=== PATIENT | female | born 1940 | race Caucasian/White ===

== ENCOUNTER 2020-10-19 16:25 | Inpatient (IN) | payer MEDICARE, BC ==
[2020-10-19] MEDS ORDERED: HYDROmorphone 1 MG/ML Syringe IVPUSH ONE ×2 (16:57→18:36)
[2020-10-19] MEDS ORDERED: Ondansetron 4 MG/2 ML SDV IVPUSH ONE (16:57)
[2020-10-19] MEDS ORDERED: HYDROmorphone 0.5 MG/0.5 ML Syringe IVPUSH ONE (17:20)
[2020-10-19] MEDS ORDERED: Ketamine 500 MG/5 ML MDV IV ONE (17:21)
--- NOTE | 2020-10-19 17:35 | EDM.PDOC ---
ED HPI GENERAL MEDICAL PROBLEM - General Chief Complaint: Lower Extremity Injury/Pain Stated Complaint: MEDICAL VIA [facility] Time Seen by Provider: 10/19/20 16:55 Source of Information: Reports: Patient, RN Notes Reviewed History Limitations: Reports: No Limitations - History of Present Illness INITIAL COMMENTS - FREE TEXT/NARRATIVE: 80-year-old female brought in by EMS services today for a fall at home, she was climbing a ladder fell off the ladder and landed on her left hip she did not hit her head no loss of consciousness denies any other injuries, hip is obviously deformed Left Hip Pain Score (Numeric/FACES): 8 - Related Data Allergies Allergy/AdvReac Type Severity Reaction Status Date / Time codeine Allergy Cannot Verified 01/19/16 13:20 Remember latex Allergy Cannot Verified 01/19/16 13:20 Remember Home Meds: Home Meds Doxazosin Mesylate 2 mg PO BID 01/19/16 [History] Hydroxychloroquine [Plaquenil] 200 mg PO BID 01/19/16 [History] Levothyroxine Sodium 88 mcg PO DAILY 01/19/16 [History] Multivitamin with Minerals [Multiple Vitamin] 1 tab PO DAILY 01/19/16 [History] Simvastatin 40 mg PO DAILY 01/19/16 [History] sulfaSALAzine [Sulfasalazine] 1,000 mg PO BID 01/19/16 [History] Aspirin 81 mg PO DAILY 10/19/20 [History] Chlorthalidone 25 mg PO DAILY 10/19/20 [History] Citalopram [Citalopram HBr] 10 mg PO DAILY 10/19/20 [History] amLODIPine [Norvasc] 5 mg PO DAILY 10/19/20 [History] carvediloL [Carvedilol] 25 mg PO BID 10/19/20 [History] lisinopriL [Lisinopril] 20 mg PO BID 10/19/20 [History] Past Medical History HEENT History: Reports: Impaired Vision Cardiovascular History: Reports: High Cholesterol, Hypertension Gastrointestinal History: Reports: Chronic Diarrhea Genitourinary History: Reports: UTI, Recurrent 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: Musculoskeletal History: Reports: Arthritis Endocrine/Metabolic History: Reports: Hypothyroidism - Infectious Disease History Infectious Disease History: Reports: Chicken Pox - Past Surgical History HEENT Surgical History: Reports: Tonsillectomy GI Surgical History: Reports: Colonoscopy, EGD Female Surgical History: Reports: Tubal Ligation Musculoskeletal Surgical History: Reports: Hip Replacement, Knee Replacement Other Musculoskeletal Surgeries/Procedures:: history of right knee replacement in October 2015; history of right hip replacement in 2011 Social & Family History - Family History Family Medical History: No Pertinent Family History - Tobacco Use Tobacco Use Status *Q: Never Tobacco User - Caffeine Use Caffeine Use: Reports: Coffee - Recreational Drug Use Recreational Drug Use: No Review of Systems - Review of Systems Review Of Systems: See Below Musculoskeletal: Reports: Joint Pain (Hip pain) ED EXAM, GENERAL - Physical Exam Exam: See Below Free Text/Narrative:: Examination left hip it is externally rotated and shortened pedal pulses +2 Exam Limited By: No Limitations General Appearance: Alert, Mild Distress Respiratory/Chest: No Respiratory Distress, Lungs Clear, Normal Breath Sounds, No Accessory Muscle Use, Chest Non-Tender Cardiovascular: Regular Rate, Rhythm, No Murmur Course - Vital Signs Last Recorded V/S: Last Vital Signs Temp 98 F 10/19/20 16:44 Pulse 81 10/19/20 16:44 Resp 16 10/19/20 16:44 BP 166/77 H 10/19/20 16:44 Pulse Ox 94 L 10/19/20 16:44 - Orders/Labs/Meds Orders: Active Orders 24 hr Category Date Time Status Hip Min 2V or 3V Lt [CR] Stat Exams 10/19/20 16:57 Ordered Meds: Medications Discontinued Medications Generic Name Dose Route Start Last Admin Trade Name Samiq PRN Reason Stop Dose Admin Hydromorphone HCl 1 mg 10/19/20 16:57 10/19/20 17:01 Hydromorphone 1 Mg/Ml Syringe IVPUSH 10/19/20 16:58 1 mg ONETIME ONE Administration Hydromorphone HCl 0.5 mg 10/19/20 17:20 Hydromorphone 0.5 Mg/0.5 Ml Syringe IVPUSH 10/19/20 17:21 ONETIME ONE Ketamine HCl 15 mg 10/19/20 17:21 10/19/20 17:25 Ketamine 500 Mg/5 Ml Mdv IV 10/19/20 17:22 15 mg ONETIME ONE Administration Ondansetron HCl 4 mg 10/19/20 16:57 10/19/20 17:00 Ondansetron 4 Mg/2 Ml Sdv IVPUSH 10/19/20 16:58 4 mg ONETIME ONE Administration Departure - Departure Time of Disposition: 17:35 Disposition: Admitted As Inpatient 68 Clinical Impression: Fracture of neck of femur, hip - Discharge Information Referrals: PCP,None [Primary Care Provider] - Sepsis Event Note (ED) - Evaluation Sepsis Screening Result: No Definite Risk - Focused Exam Vital Signs: Vital Signs Temp Pulse Resp BP Pulse Ox 10/19/20 16:44 98 F 81 16 166/77 H 94 L - My Orders Last 24 Hours: My Active Orders 10/19/20 16:57 Hip Min 2V or 3V Lt [CR] Stat - Assessment/Plan Last 24 Hours: My Active Orders 10/19/20 16:57 Hip Min 2V or 3V Lt [CR] Stat Plan: Assessment Acuity = acute Site and laterality = left hip fracture neck Etiology = secondary to fall Manifestations = none Location of injury = Home Lab values = x-ray describes fracture above Plan Call discussed case hospitalist on-call at 1730 kindly agreed to come evaluate the patient emergency department also discussed case with orthopedics on-call This note was dictated using [employer] voice recognition software please call with any questions on syntax or grammar.
--- NOTE | 2020-10-19 19:34 | PCM.HP.2 ---
H&P History of Present Illness - General Date of Service: 10/19/20 Admit Problem/Dx: Admission Diagnosis/Problem Admission Diagnosis/Problem Fracture of neck of femur, hip Source of Information: Patient, EMS, Provider, RN History Limitations: Reports: No Limitations - History of Present Illness Initial Comments - Free Text/Narative: chief complaint: left hip fracture 80-year-old female brought in by EMS services today for a fall at home, she was climbing a ladder fell off the ladder and landed on her left hip she did not hit her head no loss of consciousness denies any other injuries, hip is obviously deformed. ER evaluation - xragy shows a left fracture of neck of femur. Consult to Dr. Gupta- will do surgery in am Onset of Symptoms: Reports: Today Symptom Onset Date: 10/19/20 Symptom Onset Time: 14:00 Duration of Symptoms: Reports: Constant Location: Reports: Other (left buttock and left upper thigh) Quality: Reports: Sharp (rates pain at 8 out of 10) Severity: Severe Improves with: Reports: Immobilization Worsens with: Reports: Movement Context: Reports: Other (fall at home with fracture of left hip) Associated Symptoms: Reports: No Other Symptoms Left Hip Pain Score (Numeric/FACES): 8 - Related Data Allergies/Adverse Reactions: Allergies Allergy/AdvReac Type Severity Reaction Status Date / Time codeine Allergy Cannot Verified 01/19/16 13:20 Remember latex Allergy Cannot Verified 01/19/16 13:20 Remember Home Medications: Home Meds Doxazosin Mesylate 2 mg PO BID 01/19/16 [History] Hydroxychloroquine [Plaquenil] 200 mg PO BID 01/19/16 [History] Levothyroxine Sodium 88 mcg PO DAILY 01/19/16 [History] Multivitamin with Minerals [Multiple Vitamin] 1 tab PO DAILY 01/19/16 [History] Simvastatin 40 mg PO DAILY 01/19/16 [History] sulfaSALAzine [Sulfasalazine] 1,000 mg PO BID 01/19/16 [History] Aspirin 81 mg PO DAILY 10/19/20 [History] Chlorthalidone 25 mg PO DAILY 10/19/20 [History] Citalopram [Citalopram HBr] 10 mg PO DAILY 10/19/20 [History] amLODIPine [Norvasc] 5 mg PO DAILY 10/19/20 [History] carvediloL [Carvedilol] 25 mg PO BID 10/19/20 [History] lisinopriL [Lisinopril] 20 mg PO BID 10/19/20 [History] Past Medical History HEENT History: Reports: Impaired Vision Cardiovascular History: Reports: High Cholesterol, Hypertension Gastrointestinal History: Reports: Chronic Diarrhea Genitourinary History: Reports: UTI, Recurrent 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: Musculoskeletal History: Reports: Arthritis Endocrine/Metabolic History: Reports: Hypothyroidism - Infectious Disease History Infectious Disease History: Reports: Chicken Pox - Past Surgical History HEENT Surgical History: Reports: Tonsillectomy GI Surgical History: Reports: Colonoscopy, EGD Female Surgical History: Reports: Tubal Ligation Musculoskeletal Surgical History: Reports: Hip Replacement, Knee Replacement Other Musculoskeletal Surgeries/Procedures:: history of right knee replacement in October 2015; history of right hip replacement in 2011 Social & Family History - Family History Family Medical History: No Pertinent Family History - Tobacco Use Tobacco Use Status *Q: Never Tobacco User - Caffeine Use Caffeine Use: Reports: Coffee - Alcohol Use Alcohol Use History: Yes Days Per Week of Alcohol Use: 7 Days Per Week of Alcohol Use Comment: Mrs. Winter reports drinks several drinks every single day for the past 5 years after the of her . She starts with Bloody Allison (vodka) then ends the night with several glasses of wine. Alcohol Use in Last Twelve Months: Yes Alcohol Use Frequency: Daily - Recreational Drug Use Recreational Drug Use: No - Living Situation & Occupation Living situation: Reports: , Alone Occupation: Other (lives alone in her own home and 6 months in [place] in her [facility]. 5 years ago. Has One Daughter Sonia and One Son.) H&P Review of Systems - Review of Systems: Review Of Systems: See Below General: Reports: Other (left hip and leg pain) HEENT: Reports: Glasses, Other (full dentures) Pulmonary: Reports: No Symptoms Cardiovascular: Reports: No Symptoms Gastrointestinal: Reports: No Symptoms Genitourinary: Reports: No Symptoms Musculoskeletal: Reports: Shoulder Pain (left shoulder- chronic), Leg Pain (left hip and leg pain from fracture), Joint Pain (left rotator cuff injury this winter- had appointment with Dr. Gupta for joint injection this Monday), Other (left hand with bruising from fall today) Skin: Reports: Bruising (left buttock and left hand), Erythema Psychiatric: Reports: No Symptoms Neurological: Reports: No Symptoms Hematologic/Lymphatic: Reports: No Symptoms Exam - Exam Exam: See Below - Vital Signs Vital Signs: Last Vital Signs Temp 98 F 10/19/20 16:44 Pulse 83 10/19/20 19:12 Resp 16 10/19/20 16:44 BP 112/54 L 10/19/20 19:12 Pulse Ox 93 L 10/19/20 19:12 Weight: 140 lb - Exam Quality Assessment: Urinary Catheter General: Alert, Oriented, 4 HEENT: PERRLA, Hearing Intact, Mucosa Moist & [place], Nares Patent, Normal Nasal Septum, Posterior Pharynx Clear, Conjunctiva Clear, EOMI, EACs Clear, TMs Clear Neck: Supple, Trachea Midline, 2 Lungs: Clear to Auscultation, Normal Respiratory Effort Cardiovascular: Regular Rate, Regular Rhythm, Normal S1, Normal S2 GI/Abdominal Exam: Normal Bowel Sounds, Soft, Non-Tender, No Organomegaly, No Distention, No Abnormal Bruit, No Mass, Pelvis Stable (Female) Exam: Deferred Rectal (Female) Exam: Deferred Extremities: Arm Pain (left hand with palmar bruising), Other (left buttock, left hip and upper leg pain, bruising, edema from fracture today) Peripheral Pulses: 2+: Radial (L), Radial (R), Dorsalis Pedis (L), Dorsalis Pedis (R) Skin: Warm, Dry, Intact, Ecchymosis (left buttock, hip and left hand), Other (well tanned skin) Neuro Extensive - Mental Status: Alert, Oriented x3, Normal Mood/Affect, Normal Cognition, Memory Intact Psychiatric: Alert, Normal Affect, Normal Mood - Patient Data Lab Results Last 24 hrs: Laboratory Results - last 24 hr 10/19/20 10/19/20 Range/Units 17:50 17:50 WBC 9.7 (4.5-11.0) K/uL RBC 4.00 (3.30-5.50) M/uL Hgb 12.8 (12.0-15.0) g/dL Hct 37.9 (36.0-48.0) % MCV 95 (80-98) fL MCH 32 H (27-31) pg MCHC 34 (32-36) % Plt Count 244 (150-400) K/uL Sodium 131 L (140-148) mmol/L Potassium 3.4 L (3.6-5.2) mmol/L Chloride 93 L (100-108) mmol/L Carbon Dioxide 26 (21-32) mmol/L Anion Gap 15.4 H (5.0-14.0) mmol/L BUN 13 (7-18) mg/dL Creatinine 0.7 (0.6-1.0) mg/dL Est Cr Clr Drug Dosing 54.79 mL/min Estimated GFR (MDRD) > 60 (>60) Glucose 103 (74-106) mg/dL Calcium 9.0 (8.5-10.1) mg/dL Result Diagrams: 10/19/20 17:50 10/19/20 17:50 Sepsis Event Note - Evaluation Sepsis Screening Result: No Definite Risk - Focused Exam Vital Signs: Vital Signs Temp Pulse Resp BP Pulse Ox 10/19/20 19:12 83 112/54 L 93 L 10/19/20 17:39 85 184/79 H 96 10/19/20 16:44 98 F 81 16 166/77 H 94 L - Problem List (1) Fracture of neck of femur, hip SNOMED Code(s): 4873490 ICD Code: S72.009A - FRACTURE OF UNSP PART OF NECK OF UNSP FEMUR, INIT Status: Acute Priority: High Current Visit: Yes (2) Alcohol use disorder, severe, dependence SNOMED Code(s): 127671891 ICD Code: F10.20 - ALCOHOL DEPENDENCE, UNCOMPLICATED Status: Acute Priority: High Current Visit: Yes (3) Hypothyroidism SNOMED Code(s): 78471407 ICD Code: E03.9 - HYPOTHYROIDISM, UNSPECIFIED Status: Acute Priority: Low Current Visit: Yes Qualifiers: Hypothyroidism type: unspecified Qualified Code(s): E03.9 - Hypothyroidism, unspecified (4) Hypertension SNOMED Code(s): 77184883 ICD Code: I10 - ESSENTIAL (PRIMARY) HYPERTENSION Status: Acute Priority: High Current Visit: Yes Qualifiers: Hypertension type: unspecified Qualified Code(s): I10 - Essential (primary) hypertension (5) Chronic diarrhea SNOMED Code(s): 418918880 ICD Code: K52.9 - NONINFECTIVE GASTROENTERITIS AND COLITIS, UNSPECIFIED Status: Acute Current Visit: Yes Problem List Initiated/Reviewed/Updated: Yes Orders Last 24hrs: Active Orders 24 hr Category Date Time Status Patient Status Manage Transfer [TRANSFER] Routine ADT 10/19/20 19:18 Active Insert García Catheter [Insert Urinary Catheter] [OM.PC] Care 10/19/20 18:00 Ordered Q24H Urinary Catheter Assessment [RC] ASDIRECTED Care 10/19/20 17:50 Active Hip Min 2V or 3V Lt [CR] Stat Exams 10/19/20 16:57 Taken COVID-19/FLU A+B/RSV [MOLEC] Routine Lab 10/19/20 19:04 Received Resuscitation Status Routine Resus Stat 10/19/20 19:20 Ordered Assessment/Plan Comment:: ASSESSMENT AND PLAN LEFT HIP FRACTURE- Mrs. Winter had a fall at home and fractured her left hip. Consult to Dr. Gupta- surgery in am. -N.P.O. after midnight -IV fluids for hydration -Pain and nausea medication as needed -Dr. uGpta consult -SCUDs -am labs - CBC, BMP ALCOHOL USE DISORDER- Mrs. Winter reports drinks several drinks every day for the past five years since her . Starts with [employer] (vodka) then has several glasses of wine. denies ever having alcohol withdrawal. discussed will be monitored for any withdrawal. -[facility] HYPERTENSION -telemetry -Continue outpatient medical therapy HYPOTHYROIDISM -continue outpatient medical therapy -Synthyroid 88 mcg daily CHRONIC DIARRHEA -continue outpatient medical therapy -Sulfasalazine 1000 mg bid MAINTENANCE ISSUES -DVT prophylaxis; as above -GI prophylaxis - IV Protonic 40 mg daily -García catheter; will be placed because of severe pain with movement -Nutrition; regular diet, n.p.o. after midnight -Nicotine dependence; not required - quit smoking 22 years ago. -consult to PT -consult to OT CODE STATUS-FULL CODE ADMISSION STATUS-patient will be admitted to inpatient status, expect at least a 2 night hospital stay for evaluation and management of problems as outlined above. At the time of this admission I do not reasonably expected evaluation and management of this problem will require more than a 96 hour hospital stay. DISPOSITION-anticipate discharge to home after the hospital stay. PRIMARY CARE PROVIDER-Dr. Kin Campos, [facility], [place], [place]. SURGERY SERVICE- Dr. Gupta, Orthopedic Surgeon HOSPITALIST - Dr. Dumont - Mortality Measure Prognosis:: Good
[2020-10-19] MEDS ORDERED: Docusate Sodium 100 MG Cap PO PRN (19:38)
[2020-10-19] MEDS ORDERED: Ondansetron 4 MG Tab.DIS PO PRN (19:38)
[2020-10-19 19:46] LABS: CORONAVIRUS COVID-19 NAA NEGATIVE (NEGATIVE)
[2020-10-19] MEDS: Sodium Chloride 0.9% 1,000 ML IV SCH (20:12)
[2020-10-19] MEDS ORDERED: Lisinopril 10 MG Tab ONE (21:13)
[2020-10-19] MEDS: Doxazosin 4 MG Tab PO SCH (21:22)
[2020-10-19] MEDS: Carvedilol 12.5 MG Tab PO SCH (21:23)
[2020-10-19] MEDS: Lisinopril 20 MG Tab PO SCH (21:24)
[2020-10-19] MEDS: Hydroxychloroquine 200 MG Tab PO SCH (21:24)
[2020-10-19] MEDS: sulfaSALAzine 500 MG Tab PO SCH (21:25)
[2020-10-19] MEDS: Pantoprazole 40 MG Vial IV SCH (21:25)
[2020-10-19] MEDS: Citalopram 10 MG Tab PO SCH (22:01)
[2020-10-20] MEDS: Morphine 2 MG/ML SYRINGE IVPUSH PRN ×6 (03:25→18:51)
[2020-10-20] MEDS: Sodium Chloride 0.9% 1,000 ML IV SCH ×2 (03:25→18:46)
[2020-10-20] MEDS: oxyCODONE 5 MG Tab PO PRN ×2 (05:09→08:57)
[2020-10-20] MEDS: Acetaminophen 325 MG Tab PO PRN (05:09)
[2020-10-20] MEDS: Hydroxychloroquine 200 MG Tab PO SCH ×2 (08:21→20:43)
[2020-10-20] MEDS: Chlorthalidone 25 MG Tab PO SCH (08:21)
[2020-10-20] MEDS: Carvedilol 12.5 MG Tab PO SCH ×2 (08:22→20:42)
[2020-10-20] MEDS: amLODIPine 5 MG Tab PO SCH (08:23)
[2020-10-20] MEDS: sulfaSALAzine 500 MG Tab PO SCH ×2 (08:24→20:42)
[2020-10-20] MEDS: atorvaSTATin 20 MG Tab PO SCH (08:26)
[2020-10-20] MEDS: Doxazosin 4 MG Tab PO SCH ×2 (08:27→20:43)
[2020-10-20] MEDS: Multivitamins with Iron/Calcium/Folic Acid/Minerals Tab PO SCH (08:28)
[2020-10-20] MEDS: Lisinopril 20 MG Tab PO SCH ×2 (08:28→20:42)
[2020-10-20] MEDS: Levothyroxine 88 MCG Tab PO SCH (08:32)
[2020-10-20] MEDS ORDERED: Povidone-Iodine 10% Soln 118.25 ML Bottle ONE (08:33)
[2020-10-20] MEDS ORDERED: Citalopram 10 MG Tab PO SCH (09:00)
--- NOTE | 2020-10-20 09:12 | CR ---
Hip Min 2V or 3V Lt CLINICAL HISTORY: Fall, pain FINDINGS: Patient has a displaced fracture of the left femoral neck. There is abduction of the proximal aspect. IMPRESSION: Displaced fracture subcapital portion of the left femur
[2020-10-20] MEDS: Potassium Chloride 20 MEQ, Lidocaine 1% 2 ML in Sodium Chloride 0.9% 100 ML IV SCH ×2 (10:04→12:15)
[2020-10-20] MEDS ORDERED: Propofol 200 MG/20 ML SDV ONE (10:19)
[2020-10-20] MEDS ORDERED: Midazolam 1 MG/ML 2 ML SDV ONE (10:19)
[2020-10-20] MEDS ORDERED: fentaNYL 100 MCG/2 ML SDV ONE (10:19)
[2020-10-20] MEDS ORDERED: Sugammadex Sodium 200 MG/2 ML VIAL ONE (10:21)
--- NOTE | 2020-10-20 10:38 | PCM.PN ---
- General Info Date of Service: 10/20/20 Subjective Update: Ms. Winter is a 80-year-old woman who fell yesterday and experienced a hip fracture. She was admitted through the emergency department last night and has been receiving pain medication as needed. She has been seen and evaluated this morning by Dr. Gupta with plan for surgical repair of the hip fracture later today. - Review of Systems Pulmonary: Reports: No Symptoms Cardiovascular: Reports: No Symptoms Gastrointestinal: Reports: No Symptoms Musculoskeletal: Reports: Joint Pain - Patient Data Vitals - Most Recent: Last Vital Signs Temp 98.4 F 10/20/20 08:00 Pulse 67 10/20/20 08:22 Resp 13 10/20/20 04:00 BP 104/38 L 10/20/20 08:28 Pulse Ox 95 10/20/20 04:00 Weight - Most Recent: 160 lb I&O - Last 24 Hours: Intake & Output 10/19/20 10/20/20 10/20/20 22:59 06:59 14:59 Intake Total 1767 Output Total 950 Balance P 817 Lab Results Last 24 Hours: Laboratory Results - last 24 hr 10/19/20 10/19/20 10/19/20 Range/Units 17:50 17:50 19:04 WBC 9.7 (4.5-11.0) K/uL RBC 4.00 (3.30-5.50) M/uL Hgb 12.8 (12.0-15.0) g/dL Hct 37.9 (36.0-48.0) % MCV 95 (80-98) fL MCH 32 H (27-31) pg MCHC 34 (32-36) % Plt Count 244 (150-400) K/uL Neut % (Auto) (36-66) % Lymph % (Auto) (24-44) % [place] % (Auto) (2-6) % Eos % (Auto) (2-4) % Baso % (Auto) (0-1) % Sodium 131 L (140-148) mmol/L Potassium 3.4 L (3.6-5.2) mmol/L Chloride 93 L (100-108) mmol/L Carbon Dioxide 26 (21-32) mmol/L Anion Gap 15.4 H (5.0-14.0) mmol/L BUN 13 (7-18) mg/dL Creatinine 0.7 (0.6-1.0) mg/dL Est Cr Clr Drug Dosing 54.79 mL/min Estimated GFR (MDRD) > 60 (>60) Glucose 103 (74-106) mg/dL Calcium 9.0 (8.5-10.1) mg/dL Influenza Type A RNA Negative (NEGATIVE) RSV RNA (INAAT) Negative (NEGATIVE) Influenza Type B RNA Negative (NEGATIVE) SARS-CoV-2 RNA (MANPREET) Negative (NEGATIVE) 10/20/20 10/20/20 Range/Units 05:25 05:25 WBC 8.7 (4.5-11.0) K/uL RBC 3.39 (3.30-5.50) M/uL Hgb 11.3 L (12.0-15.0) g/dL Hct 32.4 L (36.0-48.0) % MCV 96 (80-98) fL MCH 33 H (27-31) pg MCHC 35 (32-36) % Plt Count 207 (150-400) K/uL Neut % (Auto) 78.2 H (36-66) % Lymph % (Auto) 7.9 L (24-44) % [place] % (Auto) 12.9 H (2-6) % Eos % (Auto) 0.9 L (2-4) % Baso % (Auto) 0.1 (0-1) % Sodium 133 L (140-148) mmol/L Potassium 3.5 L (3.6-5.2) mmol/L Chloride 96 L (100-108) mmol/L Carbon Dioxide 28 (21-32) mmol/L Anion Gap 12.5 (5.0-14.0) mmol/L BUN 12 (7-18) mg/dL Creatinine 0.7 (0.6-1.0) mg/dL Est Cr Clr Drug Dosing 54.79 mL/min Estimated GFR (MDRD) > 60 (>60) Glucose 96 (74-106) mg/dL Calcium 7.9 L (8.5-10.1) mg/dL Influenza Type A RNA (NEGATIVE) RSV RNA (INAAT) (NEGATIVE) Influenza Type B RNA (NEGATIVE) SARS-CoV-2 RNA (MANPREET) (NEGATIVE) Med Orders - Current: Current Medications Acetaminophen (Acetaminophen 325 Mg Tab) 650 mg PO Q4H PRN PRN Reason: Pain (Mild 1-3)/fever Last Admin: 10/20/20 05:09 Dose: 650 mg Documented by: Albuterol (Albuterol 0.083% 2.5 Mg/3 Ml Neb Soln) 2.5 mg NEB Q4H PRN PRN Reason: Shortness Of Breath/wheezing Amlodipine Besylate (Amlodipine 5 Mg Tab) 5 mg PO DAILY [facility] Last Admin: 10/20/20 08:23 Dose: 5 mg Documented by: Atorvastatin Calcium (Atorvastatin 20 Mg Tab) 20 mg PO DAILY [facility] Last Admin: 10/20/20 08:26 Dose: 20 mg Documented by: Carvedilol (Carvedilol 12.5 Mg Tab) 25 mg PO BID [facility] Last Admin: 10/20/20 08:22 Dose: 25 mg Documented by: Chlorthalidone (Chlorthalidone 25 Mg Tab) 25 mg PO DAILY [facility] Last Admin: 10/20/20 08:21 Dose: 25 mg Documented by: Citalopram Hydrobromide (Citalopram 10 Mg Tab) 10 mg PO BEDTIME [facility] Last Admin: 10/19/20 22:01 Dose: 10 mg Documented by: Docusate Sodium (Docusate Sodium 100 Mg Cap) 100 mg PO BID PRN PRN Reason: Constipation Last Admin: 10/19/20 21:25 Dose: 100 mg Documented by: Doxazosin Mesylate (Doxazosin 4 Mg Tab) 2 mg PO BID [facility] Last Admin: 10/20/20 08:27 Dose: 2 mg Documented by: Hydroxychloroquine Sulfate (Hydroxychloroquine 200 Mg Tab) 200 mg PO BID [facility] Last Admin: 10/20/20 08:21 Dose: 200 mg Documented by: Sodium Chloride (Normal Saline) 1,000 mls @ 125 mls/hr IV ASDIRECTED [facility] Last Admin: 10/20/20 03:25 Dose: 125 mls/hr Documented by: Cefazolin Sodium/Dextrose 1 gm (/ Premix) 50 mls @ 100 mls/hr IV ONETIME ONE Stop: 10/20/20 16:29 Potassium Chloride 20 meq/Lidocaine HCl 2 ml/ Sodium Chloride 112 mls @ 56 mls/hr IV Q2H [facility]AC[facility] Stop: 10/20/20 13:59 Last Admin: 10/20/20 10:04 Dose: 56 mls/hr Documented by: Levothyroxine Sodium (Levothyroxine 88 Mcg Tab) 88 mcg PO DAILY@0730 [facility] Last Admin: 10/20/20 08:32 Dose: 88 mcg Documented by: Lisinopril (Lisinopril 20 Mg Tab) 20 mg PO BID [facility] Last Admin: 10/20/20 08:28 Dose: 20 mg Documented by: Morphine Sulfate (Morphine 2 Mg/Ml Syringe) 2 mg IVPUSH Q2H PRN PRN Reason: Pain (severe 7-10) Last Admin: 10/20/20 07:53 Dose: 2 mg Documented by: Multivitamins/Minerals (Multivitamins With Iron/Calcium/Folic Acid/Minerals Tab) 1 tab PO DAILY [facility] Last Admin: 10/20/20 08:28 Dose: 1 tab Documented by: Ondansetron HCl (Ondansetron 4 Mg Tab.Dis) 4 mg PO Q6H PRN PRN Reason: Nausea able to take PO Oxycodone HCl (Oxycodone 5 Mg Tab) 10 mg PO Q4H PRN PRN Reason: Pain (moderate 4-6) Last Admin: 10/20/20 08:57 Dose: 10 mg Documented by: Pantoprazole Sodium (Pantoprazole 40 Mg Vial) 40 mg IV BEDTIME [facility] Last Admin: 10/19/20 21:25 Dose: 40 mg Documented by: Sulfasalazine (Sulfasalazine 500 Mg Tab) 1,000 mg PO BID [facility] Last Admin: 10/20/20 08:24 Dose: 1,000 mg Documented by: Discontinued Medications Citalopram Hydrobromide (Citalopram 10 Mg Tab) 10 mg PO DAILY [facility] Fentanyl (Fentanyl 100 Mcg/2 Ml Sdv) Confirm Administered Dose 100 mcg .ROUTE .STK-MED ONE Stop: 10/20/20 10:20 Hydromorphone HCl (Hydromorphone 1 Mg/Ml Syringe) 1 mg IVPUSH ONETIME ONE Stop: 10/19/20 16:58 Last Admin: 10/19/20 17:01 Dose: 1 mg Documented by: Hydromorphone HCl (Hydromorphone 0.5 Mg/0.5 Ml Syringe) 0.5 mg IVPUSH ONETIME ONE Stop: 10/19/20 17:21 Last Admin: 10/19/20 20:59 Dose: Not Given Documented by: Hydromorphone HCl (Hydromorphone 1 Mg/Ml Syringe) 1 mg IVPUSH ONETIME ONE Stop: 10/19/20 18:37 Last Admin: 10/19/20 18:39 Dose: 1 mg Documented by: Ketamine HCl (Ketamine 500 Mg/5 Ml Mdv) 15 mg IV ONETIME ONE Stop: 10/19/20 17:22 Last Admin: 10/19/20 17:25 Dose: 15 mg Documented by: Lisinopril (Lisinopril 10 Mg Tab) Confirm Administered Dose 20 mg .ROUTE .STK- MED ONE Stop: 10/19/20 21:14 Last Admin: 10/19/20 21:27 Dose: Not Given Documented by: Midazolam HCl (Midazolam 1 Mg/Ml 2 Ml Sdv) Confirm Administered Dose 2 mg .ROUTE .STK-MED ONE Stop: 10/20/20 10:20 Ondansetron HCl (Ondansetron 4 Mg/2 Ml Sdv) 4 mg IVPUSH ONETIME ONE Stop: 10/19/20 16:58 Last Admin: 10/19/20 17:00 Dose: 4 mg Documented by: Povidone Iodine (Povidone-Iodine 10% Soln 118.25 Ml Bottle) Confirm Administered Dose 1 ml .ROUTE .STK-MED ONE Stop: 10/20/20 08:34 Propofol (Propofol 200 Mg/20 Ml Sdv) Confirm Administered Dose 200 mg .ROUTE .STK-MED ONE Stop: 10/20/20 10:20 Sugammadex Sodium (Sugammadex Sodium 200 Mg/2 Ml Vial) Confirm Administered Dose 200 mg .ROUTE .STK-MED ONE Stop: 10/20/20 10:22 - Exam General: Alert, Oriented, Cooperative, Moderate Distress Lungs: Clear to Auscultation, Normal Respiratory Effort Cardiovascular: Regular Rate, Regular Rhythm, No Murmurs GI/Abdominal Exam: Soft, Non-Tender, No Organomegaly, No Distention Extremities: No Pedal Edema - Patient Data Lab Results Last 24 hrs: Laboratory Results - last 24 hr 10/19/20 10/19/20 10/19/20 Range/Units 17:50 17:50 19:04 WBC 9.7 (4.5-11.0) K/uL RBC 4.00 (3.30-5.50) M/uL Hgb 12.8 (12.0-15.0) g/dL Hct 37.9 (36.0-48.0) % MCV 95 (80-98) fL MCH 32 H (27-31) pg MCHC 34 (32-36) % Plt Count 244 (150-400) K/uL Neut % (Auto) (36-66) % Lymph % (Auto) (24-44) % [place] % (Auto) (2-6) % Eos % (Auto) (2-4) % Baso % (Auto) (0-1) % Sodium 131 L (140-148) mmol/L Potassium 3.4 L (3.6-5.2) mmol/L Chloride 93 L (100-108) mmol/L Carbon Dioxide 26 (21-32) mmol/L Anion Gap 15.4 H (5.0-14.0) mmol/L BUN 13 (7-18) mg/dL Creatinine 0.7 (0.6-1.0) mg/dL Est Cr Clr Drug Dosing 54.79 mL/min Estimated GFR (MDRD) > 60 (>60) Glucose 103 (74-106) mg/dL Calcium 9.0 (8.5-10.1) mg/dL Influenza Type A RNA Negative (NEGATIVE) RSV RNA (INAAT) Negative (NEGATIVE) Influenza Type B RNA Negative (NEGATIVE) SARS-CoV-2 RNA (MANPREET) Negative (NEGATIVE) 10/20/20 10/20/20 Range/Units 05:25 05:25 WBC 8.7 (4.5-11.0) K/uL RBC 3.39 (3.30-5.50) M/uL Hgb 11.3 L (12.0-15.0) g/dL Hct 32.4 L (36.0-48.0) % MCV 96 (80-98) fL MCH 33 H (27-31) pg MCHC 35 (32-36) % Plt Count 207 (150-400) K/uL Neut % (Auto) 78.2 H (36-66) % Lymph % (Auto) 7.9 L (24-44) % [place] % (Auto) 12.9 H (2-6) % Eos % (Auto) 0.9 L (2-4) % Baso % (Auto) 0.1 (0-1) % Sodium 133 L (140-148) mmol/L Potassium 3.5 L (3.6-5.2) mmol/L Chloride 96 L (100-108) mmol/L Carbon Dioxide 28 (21-32) mmol/L Anion Gap 12.5 (5.0-14.0) mmol/L BUN 12 (7-18) mg/dL Creatinine 0.7 (0.6-1.0) mg/dL Est Cr Clr Drug Dosing 54.79 mL/min Estimated GFR (MDRD) > 60 (>60) Glucose 96 (74-106) mg/dL Calcium 7.9 L (8.5-10.1) mg/dL Influenza Type A RNA (NEGATIVE) RSV RNA (INAAT) (NEGATIVE) Influenza Type B RNA (NEGATIVE) SARS-CoV-2 RNA (MANPREET) (NEGATIVE) Result Diagrams: 10/20/20 05:25 10/20/20 05:25 Sepsis Event Note - Evaluation Sepsis Screening Result: No Definite Risk - Focused Exam Vital Signs: Vital Signs Temp Pulse Pulse Resp BP BP Pulse Ox 10/20/20 08:28 104/38 L 10/20/20 08:27 104/38 L 10/20/20 08:23 104/38 L 10/20/20 08:22 67 104/38 L 10/20/20 08:00 98.4 F 80 104/38 L 10/20/20 04:00 98.2 F 13 132/59 L 95 10/20/20 00:00 98.0 F 13 131/63 98 - Problem List Review Problem List Initiated/Reviewed/Updated: Yes - My Orders Last 24 Hours: My Active Orders 10/20/20 10:00 Potassium Chloride 20 meq Lidocaine 1% [Xylocaine 1%] 2 ml Sodium Chloride 0.9% [Normal Saline] 100 ml IV Q2H 10/21/20 05:00 BASIC METABOLIC PANEL,BMP [CHEM] Timed CBC WITH AUTO DIFF [HEME] Timed - Plan Plan:: ASSESSMENT AND PLAN LEFT HIP FRACTURE- Mrs. Winter had a fall at home and fractured her left hip. -N.P.O. -IV fluids for hydration -Pain and nausea medication as needed -Dr. Gupta consult -SCUDs -am labs - CBC, BMP ALCOHOL USE DISORDER- Mrs. Winter reports drinks several drinks every day for the past five years since her . Starts with [employer] (vodka) then has several glasses of wine. denies ever having alcohol withdrawal. discussed will be monitored for any withdrawal. -CIWAA Protocol HYPERTENSION -telemetry -Continue outpatient medical therapy HYPOTHYROIDISM -continue outpatient medical therapy -Synthyroid 88 mcg daily CHRONIC DIARRHEA -continue outpatient medical therapy -Sulfasalazine 1000 mg bid MAINTENANCE ISSUES -DVT prophylaxis; as above -GI prophylaxis - IV Protonic 40 mg daily -García catheter; will be placed because of severe pain with movement -Nutrition; regular diet, n.p.o. after midnight -Nicotine dependence; not required - quit smoking 22 years ago. -consult to PT -consult to OT CODE STATUS-FULL CODE ADMISSION STATUS-patient will be admitted to inpatient status, expect at least a 2 night hospital stay for evaluation and management of problems as outlined above. At the time of this admission I do not reasonably expected evaluation and management of this problem will require more than a 96 hour hospital stay. DISPOSITION-anticipate discharge to [facility] PRIMARY CARE PROVIDER-Dr. Kin Campos, [facility], [place], [place]. SURGERY SERVICE- Dr. Gupta, Orthopedic Surgeon HOSPITALIST - Dr. Dumont
--- NOTE | 2020-10-20 12:59 | PCM.CONS ---
H&P History of Present Illness - General Date of Service: 10/20/20 Admit Problem/Dx: Admission Diagnosis/Problem Admission Diagnosis/Problem Fracture of neck of femur, hip Source of Information: Patient, Old Records, Provider History Limitations: Reports: No Limitations - History of Present Illness Initial Comments - Free Text/Narative: 80 year old female admitted after a fall from a ladder with left hip pain. evaluation in the ED reveals a left femoral neck fracture. No other new injuries. Had been having shoulder pain prior to the fall. Onset of Symptoms: Reports: Sudden Location: Reports: Lower Extremity, Left Quality: Reports: Sharp, Stabbing Severity: Severe Context: Reports: Trauma (fall) Associated Symptoms: Reports: No Other Symptoms Left Hip Pain Score (Numeric/FACES): 2 - Related Data Allergies/Adverse Reactions: Allergies Allergy/AdvReac Type Severity Reaction Status Date / Time codeine Allergy Cannot Verified 01/19/16 13:20 Remember latex Allergy Cannot Verified 01/19/16 13:20 Remember Home Medications: Home Meds Doxazosin Mesylate 2 mg PO BID 01/19/16 [History] Hydroxychloroquine [Plaquenil] 200 mg PO BID 01/19/16 [History] Levothyroxine Sodium 88 mcg PO DAILY 01/19/16 [History] Multivitamin with Minerals [Multiple Vitamin] 1 tab PO DAILY 01/19/16 [History] Simvastatin 40 mg PO BEDTIME 01/19/16 [History] sulfaSALAzine [Sulfasalazine] 1,000 mg PO BID 01/19/16 [History] Aspirin 81 mg PO DAILY 10/19/20 [History] Chlorthalidone 25 mg PO DAILY 10/19/20 [History] Citalopram [Citalopram HBr] 10 mg PO BEDTIME 10/19/20 [History] amLODIPine [Norvasc] 5 mg PO DAILY 10/19/20 [History] carvediloL [Carvedilol] 25 mg PO BID 10/19/20 [History] lisinopriL [Lisinopril] 20 mg PO BID 10/19/20 [History] Past Medical History HEENT History: Reports: Impaired Vision Cardiovascular History: Reports: High Cholesterol, Hypertension Gastrointestinal History: Reports: Chronic Diarrhea Genitourinary History: Reports: UTI, Recurrent 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: Musculoskeletal History: Reports: Arthritis Endocrine/Metabolic History: Reports: Hypothyroidism - Infectious Disease History Infectious Disease History: Reports: Chicken Pox - Past Surgical History HEENT Surgical History: Reports: Tonsillectomy GI Surgical History: Reports: Colonoscopy, EGD Female Surgical History: Reports: Tubal Ligation Musculoskeletal Surgical History: Reports: Hip Replacement, Knee Replacement Other Musculoskeletal Surgeries/Procedures:: history of right knee replacement in October 2015; history of right hip replacement in 2011 Social & Family History - Family History Family Medical History: No Pertinent Family History - Tobacco Use Tobacco Use Status *Q: Former Tobacco User Used Tobacco, but Quit: Yes Month/Year Tobacco Last Used: 22 years ago - Caffeine Use Caffeine Use: Reports: Coffee - Alcohol Use Days Per Week of Alcohol Use: 7 Number of Drinks Per Day: 5 Total Drinks Per Week: 35 - Recreational Drug Use Recreational Drug Use: No - Living Situation & Occupation Living situation: Reports: , Alone Occupation: Other (lives alone in her own home and 6 months in [place] in her [facility]. 5 years ago. Has One Daughter Sonia and One Son.) H&P Review of Systems - Review of Systems: Review Of Systems: See Below General: Reports: No Symptoms Musculoskeletal: Reports: Leg Pain Skin: Reports: No Symptoms Psychiatric: Reports: No Symptoms Neurological: Reports: No Symptoms Exam - Exam Exam: See Below - Vital Signs Vital Signs: Last Vital Signs Temp 36.9 C 10/20/20 12:00 Pulse 82 10/20/20 12:00 Resp 14 10/20/20 12:00 BP 115/48 L 10/20/20 12:00 Pulse Ox 92 L 10/20/20 12:32 Weight: 72.575 kg - Exam General: Alert, Oriented, Cooperative Cardiovascular: Regular Rate, Regular Rhythm Extremities: Other (left leg is short and externally rotated, pain with logroll) - Patient Data Lab Results Last 24 hrs: Laboratory Results - last 24 hr 10/19/20 10/19/20 10/19/20 Range/Units 17:50 17:50 19:04 WBC 9.7 (4.5-11.0) K/uL RBC 4.00 (3.30-5.50) M/uL Hgb 12.8 (12.0-15.0) g/dL Hct 37.9 (36.0-48.0) % MCV 95 (80-98) fL MCH 32 H (27-31) pg MCHC 34 (32-36) % Plt Count 244 (150-400) K/uL Neut % (Auto) (36-66) % Lymph % (Auto) (24-44) % [place] % (Auto) (2-6) % Eos % (Auto) (2-4) % Baso % (Auto) (0-1) % Sodium 131 L (140-148) mmol/L Potassium 3.4 L (3.6-5.2) mmol/L Chloride 93 L (100-108) mmol/L Carbon Dioxide 26 (21-32) mmol/L Anion Gap 15.4 H (5.0-14.0) mmol/L BUN 13 (7-18) mg/dL Creatinine 0.7 (0.6-1.0) mg/dL Est Cr Clr Drug Dosing 54.79 mL/min Estimated GFR (MDRD) > 60 (>60) Glucose 103 (74-106) mg/dL Calcium 9.0 (8.5-10.1) mg/dL Influenza Type A RNA Negative (NEGATIVE) RSV RNA (INAAT) Negative (NEGATIVE) Influenza Type B RNA Negative (NEGATIVE) SARS-CoV-2 RNA (MANPREET) Negative (NEGATIVE) 10/20/20 10/20/20 Range/Units 05:25 05:25 WBC 8.7 (4.5-11.0) K/uL RBC 3.39 (3.30-5.50) M/uL Hgb 11.3 L (12.0-15.0) g/dL Hct 32.4 L (36.0-48.0) % MCV 96 (80-98) fL MCH 33 H (27-31) pg MCHC 35 (32-36) % Plt Count 207 (150-400) K/uL Neut % (Auto) 78.2 H (36-66) % Lymph % (Auto) 7.9 L (24-44) % [place] % (Auto) 12.9 H (2-6) % Eos % (Auto) 0.9 L (2-4) % Baso % (Auto) 0.1 (0-1) % Sodium 133 L (140-148) mmol/L Potassium 3.5 L (3.6-5.2) mmol/L Chloride 96 L (100-108) mmol/L Carbon Dioxide 28 (21-32) mmol/L Anion Gap 12.5 (5.0-14.0) mmol/L BUN 12 (7-18) mg/dL Creatinine 0.7 (0.6-1.0) mg/dL Est Cr Clr Drug Dosing 54.79 mL/min Estimated GFR (MDRD) > 60 (>60) Glucose 96 (74-106) mg/dL Calcium 7.9 L (8.5-10.1) mg/dL Influenza Type A RNA (NEGATIVE) RSV RNA (INAAT) (NEGATIVE) Influenza Type B RNA (NEGATIVE) SARS-CoV-2 RNA (MANPREET) (NEGATIVE) Result Diagrams: 10/20/20 05:25 10/20/20 05:25 Sepsis Event Note - Evaluation Sepsis Screening Result: No Definite Risk - Focused Exam Vital Signs: Vital Signs Temp Pulse Pulse Resp BP BP Pulse Ox 10/20/20 12:32 92 L 10/20/20 12:00 36.9 C 82 14 115/48 L 92 L 10/20/20 08:28 104/38 L 10/20/20 08:27 104/38 L 10/20/20 08:23 104/38 L 10/20/20 08:22 67 104/38 L 10/20/20 08:00 36.9 C 80 104/38 L 10/20/20 04:00 36.8 C 13 132/59 L 95 Consult PN Assessment/Plan Procedures: Procedures ASSAY OF CREATININE (11/07/18) ASSAY OF METANEPHRINES (11/09/18) ASSAY OF URINE CREATININE (11/09/18) CT ABD & PELV 1/> REGNS (11/07/18) ABBI MUSC/FASCIA 20 SQ CM/< (01/21/16) ENDOVENOUS RF 1ST VEIN (01/21/16) EXTREMITY STUDY (01/25/16) EXTREMITY STUDY (01/05/16) MANUAL THERAPY 1/> REGIONS (03/10/16) NJX 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 Problem List Initiated/Reviewed/Updated: Yes My Orders Last 24 Hours: My Active Orders 10/19/20 20:06 Verify Patient Consent Obtain [RC] ASDIRECTED 10/20/20 Breakfast NPO [Nothing Per Oral Diet] [DIET] 10/20/20 16:00 ceFAZolin [Ancef 1 GM/50 ML] 1 gm Premix Bag 1 bag IV ONETIME Plan: Recommend hemiarthroplasty left hip. Procedure, risks and benefits were discussed with patient and her daughter. Patient has a right WILLIAM and is familiar with [facility] planned procedure. Can proceed later today. Keep NPO. Will be able to be up WBAT on left after surgery.
[2020-10-20] MEDS ORDERED: ceFAZolin 1 GM in Premix Bag 1 BAG IV ONE (16:00)
[2020-10-20] MEDS ORDERED: ePHEDrine 50 MG/ML SDV ONE (16:28)
[2020-10-20] MEDS ORDERED: Phenylephrine 1% 10 MG/ML SDV ONE (16:29)
[2020-10-20] MEDS ORDERED: Lactated Ringers 1,000 ML ONE (17:15)
[2020-10-20] MEDS: Albuterol 0.083% 2.5 MG/3 ML Neb Soln NEB PRN (20:40)
[2020-10-20] MEDS: Pantoprazole 40 MG Vial IV SCH (20:40)
[2020-10-20] MEDS: Docusate Sodium 100 MG Cap PO SCH (20:43)
[2020-10-20] MEDS: Citalopram 10 MG Tab PO SCH (20:43)
[2020-10-20] MEDS ORDERED: ceFAZolin 1 GM Vial ONE (21:34)
[2020-10-20] MEDS: ceFAZolin 1 GM in Sodium Chloride 0.9% 50 ML IV SCH (21:52)
[2020-10-20] MEDS ORDERED: ceFAZolin 1 GM in Premix Bag 1 BAG IV SCH (22:00)
[2020-10-21] MEDS: Morphine 2 MG/ML SYRINGE IVPUSH PRN ×2 (03:28→12:46)
[2020-10-21] MEDS: Sodium Chloride 0.9% 1,000 ML IV SCH ×3 (03:28→20:57)
[2020-10-21] MEDS: ceFAZolin 1 GM in Sodium Chloride 0.9% 50 ML IV SCH ×2 (06:01→13:40)
[2020-10-21] MEDS: Potassium Chloride 20 MEQ, Lidocaine 1% 2 ML in Sodium Chloride 0.9% 100 ML IV SCH ×2 (06:59→09:21)
[2020-10-21] MEDS: oxyCODONE 5 MG Tab PO PRN ×3 (07:31→16:17)
[2020-10-21] MEDS: Levothyroxine 88 MCG Tab PO SCH (07:31)
[2020-10-21] MEDS ORDERED: Potassium Chloride 20 MEQ Tab.ER PO ONE ×2 (08:00→13:00)
[2020-10-21] MEDS: Multivitamins with Iron/Calcium/Folic Acid/Minerals Tab PO SCH (08:27)
[2020-10-21] MEDS: sulfaSALAzine 500 MG Tab PO SCH ×2 (08:27→23:15)
[2020-10-21] MEDS: atorvaSTATin 20 MG Tab PO SCH (08:29)
[2020-10-21] MEDS: Hydroxychloroquine 200 MG Tab PO SCH ×2 (08:29→23:15)
[2020-10-21] MEDS: Docusate Sodium 100 MG Cap PO SCH ×2 (08:29→23:15)
[2020-10-21] MEDS: Enoxaparin 30 MG/0.3 ML Syringe SUBCUT SCH (08:30)
[2020-10-21] MEDS ORDERED: Calcium Gluconate 2 GM in Sodium Chloride 0.9% 100 ML IV ONE (09:00)
--- NOTE | 2020-10-21 09:12 | CR ---
Pelvis 1V or 2V CLINICAL HISTORY: Hemiarthroplasty FINDINGS: AP view the lower pelvis and left hip shows recent placement of a left hip hemiarthroplasty following femoral neck fracture. Patient has a total right hip arthroplasty. Impression: Status post placement of a left hip hemiarthroplasty
[2020-10-21] MEDS ORDERED: Sodium Chloride 0.9% 10 ML SDV IV ONE (09:22)
[2020-10-21] MEDS ORDERED: Sodium Chloride 0.9% 500 ML IV ONE ×3 (09:24→16:10)
[2020-10-21] MEDS: Doxazosin 4 MG Tab PO SCH (10:03)
[2020-10-21] MEDS: Carvedilol 12.5 MG Tab PO SCH ×2 (10:04→21:40)
[2020-10-21] MEDS: Lisinopril 20 MG Tab PO SCH ×2 (10:04→21:41)
[2020-10-21] MEDS: Chlorthalidone 25 MG Tab PO SCH (10:04)
[2020-10-21] MEDS: amLODIPine 5 MG Tab PO SCH (10:04)
--- NOTE | 2020-10-21 10:12 | PCM.SURGPN ---
- General Info Date of Service: 10/21/20 Date of Surgery/Procedure: 10/20/20 POD#: 1 Post-Op Diagnosis: left femoral neck fracture, s/p hemiarthroplasty of left hip Functional Status: Reports: Tolerating Diet, Incentive Spirometry - Review of Systems General: Reports: No Symptoms HEENT: Reports: No Symptoms Pulmonary: Reports: No Symptoms Cardiovascular: Reports: Dyspnea on Exertion Gastrointestinal: Reports: No Symptoms Genitourinary: Reports: No Symptoms Musculoskeletal: Reports: Leg Pain (left ), Joint Pain (left hip ) Neurological: Reports: Confusion Psychiatric: Reports: No Symptoms - Patient Data Vitals - Most Recent: Last Vital Signs Temp 97.8 F 10/21/20 08:00 Pulse 78 10/21/20 08:00 Resp 21 H 10/21/20 08:00 BP 97/37 L 10/21/20 08:00 Pulse Ox 96 10/21/20 08:00 Weight - Most Recent: 160 lb I&O - Last 24 Hours: Intake & Output 10/20/20 10/21/20 10/21/20 22:59 06:59 14:59 Intake Total 2021 1828 300 Output Total 65 575 10 Balance 138H 1253 20@ Lab Results Last 24 Hrs: Laboratory Results - last 24 hr 10/21/20 10/21/20 10/21/20 Range/Units 05:40 05:40 06:44 WBC 9.3 (4.5-11.0) K/uL RBC 2.56 L (3.30-5.50) M/uL Hgb 8.4 L D (12.0-15.0) g/dL Hct 25.2 L (36.0-48.0) % MCV 98 (80-98) fL MCH 33 H (27-31) pg MCHC 33 (32-36) % Plt Count 145 L (150-400) K/uL Neut % (Auto) 77.2 H (36-66) % Lymph % (Auto) 8.4 L (24-44) % Henry % (Auto) 13.6 H (2-6) % Eos % (Auto) 0.7 L (2-4) % Baso % (Auto) 0.1 (0-1) % Sodium 136 L (140-148) mmol/L Potassium 2.9 L* (3.6-5.2) mmol/L Chloride 103 (100-108) mmol/L Carbon Dioxide 25 (21-32) mmol/L Anion Gap 10.9 (5.0-14.0) mmol/L BUN 9 (7-18) mg/dL Creatinine 0.5 L (0.6-1.0) mg/dL Est Cr Clr Drug Dosing 76.71 mL/min Estimated GFR (MDRD) > 60 (>60) Glucose 59 L (74-106) mg/dL Calcium 6.2 L* D (8.5-10.1) mg/dL POC WB Ioniz Calcium 1.00 L* (1.12-1.32) mmol/L Med Orders - Current: Current Medications Acetaminophen (Acetaminophen 325 Mg Tab) 650 mg PO Q4H PRN PRN Reason: Pain (Mild 1-3)/fever Last Admin: 10/20/20 05:09 Dose: 650 mg Documented by: Albuterol (Albuterol 0.083% 2.5 Mg/3 Ml Neb Soln) 2.5 mg NEB Q4H PRN PRN Reason: Shortness Of Breath/wheezing Last Admin: 10/20/20 20:40 Dose: 2.5 mg Documented by: Amlodipine Besylate (Amlodipine 5 Mg Tab) 5 mg PO DAILY [facility] Last Admin: 10/20/20 08:23 Dose: 5 mg Documented by: Atorvastatin Calcium (Atorvastatin 20 Mg Tab) 20 mg PO DAILY [facility] Last Admin: 10/21/20 08:29 Dose: 20 mg Documented by: Carvedilol (Carvedilol 12.5 Mg Tab) 25 mg PO BID [facility] Last Admin: 10/20/20 20:42 Dose: 25 mg Documented by: Chlorthalidone (Chlorthalidone 25 Mg Tab) 25 mg PO DAILY [facility] Last Admin: 10/20/20 08:21 Dose: 25 mg Documented by: Citalopram Hydrobromide (Citalopram 10 Mg Tab) 10 mg PO BEDTIME [facility] Last Admin: 10/20/20 20:43 Dose: 10 mg Documented by: Docusate Sodium (Docusate Sodium 100 Mg Cap) 100 mg PO BID [facility] Last Admin: 10/21/20 08:29 Dose: 100 mg Documented by: Doxazosin Mesylate (Doxazosin 4 Mg Tab) 2 mg PO BID [facility] Last Admin: 10/20/20 20:43 Dose: 2 mg Documented by: Enoxaparin Sodium (Enoxaparin 30 Mg/0.3 Ml Syringe) 30 mg SUBCUT Q24H [facility] Last Admin: 10/21/20 08:30 Dose: 30 mg Documented by: Hydroxychloroquine Sulfate (Hydroxychloroquine 200 Mg Tab) 200 mg PO BID [facility] Last Admin: 10/21/20 08:29 Dose: 200 mg Documented by: Sodium Chloride (Normal Saline) 1,000 mls @ 125 mls/hr IV ASDIRECTED [facility] Last Admin: 10/21/20 03:28 Dose: 125 mls/hr Documented by: Cefazolin Sodium 1 gm/ Sodium (Chloride) 50 mls @ 100 mls/hr IV Q8H [facility] Stop: 10/21/20 14:29 Last Admin: 10/21/20 06:01 Dose: 100 mls/hr Documented by: Potassium Chloride 20 meq/Lidocaine HCl 2 ml/ Sodium Chloride 112 mls @ 50 mls/hr IV Q2H [facility] Stop: 10/21/20 10:44 Last Admin: 10/21/20 09:21 Dose: 50 mls/hr Documented by: Calcium Gluconate 2 gm/ Sodium (Chloride) 120 mls @ 100 mls/hr IV ONETIME ONE Stop: 10/21/20 10:11 Last Admin: 10/21/20 09:21 Dose: 100 mls/hr Documented by: Sodium Chloride (Normal Saline) 500 mls @ 500 mls/hr IV ONETIME ONE Stop: 10/21/20 10:29 Last Admin: 10/21/20 09:27 Dose: 500 mls/hr Documented by: Levothyroxine Sodium (Levothyroxine 88 Mcg Tab) 88 mcg PO DAILY@0730 [facility] Last Admin: 10/21/20 07:31 Dose: 88 mcg Documented by: Lisinopril (Lisinopril 20 Mg Tab) 20 mg PO BID [facility] Last Admin: 10/20/20 20:42 Dose: 20 mg Documented by: Morphine Sulfate (Morphine 2 Mg/Ml Syringe) 2 mg IVPUSH Q2H PRN PRN Reason: Pain (severe 7-10) Last Admin: 10/21/20 03:28 Dose: 2 mg Documented by: Multivitamins/Minerals (Multivitamins With Iron/Calcium/Folic Acid/Minerals Tab) 1 tab PO DAILY [facility] Last Admin: 10/21/20 08:27 Dose: 1 tab Documented by: Ondansetron HCl (Ondansetron 4 Mg Tab.Dis) 4 mg PO Q6H PRN PRN Reason: Nausea able to take PO Oxycodone HCl (Oxycodone 5 Mg Tab) 10 mg PO Q4H PRN PRN Reason: Pain (moderate 4-6) Last Admin: 10/21/20 07:31 Dose: 10 mg Documented by: Pantoprazole Sodium (Pantoprazole 40 Mg Vial) 40 mg IV BEDTIME [facility] Last Admin: 10/20/20 20:40 Dose: 40 mg Documented by: Potassium Chloride (Potassium Chloride 20 Meq Tab.Er) 40 meq PO ONETIME ONE Stop: 10/21/20 13:01 Sulfasalazine (Sulfasalazine 500 Mg Tab) 1,000 mg PO BID [facility] Last Admin: 10/21/20 08:27 Dose: 1,000 mg Documented by: Discontinued Medications Cefazolin Sodium (Cefazolin 1 Gm Vial) Confirm Administered Dose 1 gm .ROUTE .STK-MED ONE Stop: 10/20/20 21:35 Last Admin: 10/20/20 21:50 Dose: Not Given Documented by: Citalopram Hydrobromide (Citalopram 10 Mg Tab) 10 mg PO DAILY [facility] Docusate Sodium (Docusate Sodium 100 Mg Cap) 100 mg PO BID PRN PRN Reason: Constipation Last Admin: 10/19/20 21:25 Dose: 100 mg Documented by: Ephedrine Sulfate (Ephedrine 50 Mg/Ml Sdv) Confirm Administered Dose 50 mg .ROUTE .STK-MED ONE Stop: 10/20/20 16:29 Fentanyl (Fentanyl 100 Mcg/2 Ml Sdv) Confirm Administered Dose 100 mcg .ROUTE .STK-MED ONE Stop: 10/20/20 10:20 Hydromorphone HCl (Hydromorphone 1 Mg/Ml Syringe) 1 mg IVPUSH ONETIME ONE Stop: 10/19/20 16:58 Last Admin: 10/19/20 17:01 Dose: 1 mg Documented by: Hydromorphone HCl (Hydromorphone 0.5 Mg/0.5 Ml Syringe) 0.5 mg IVPUSH ONETIME ONE Stop: 10/19/20 17:21 Last Admin: 10/19/20 20:59 Dose: Not Given Documented by: Hydromorphone HCl (Hydromorphone 1 Mg/Ml Syringe) 1 mg IVPUSH ONETIME ONE Stop: 10/19/20 18:37 Last Admin: 10/19/20 18:39 Dose: 1 mg Documented by: Cefazolin Sodium/Dextrose 1 gm (/ Premix) 50 mls @ 100 mls/hr IV ONETIME ONE Stop: 10/20/20 16:29 Last Admin: 10/20/20 15:51 Dose: 100 mls/hr Documented by: Potassium Chloride 20 meq/Lidocaine HCl 2 ml/ Sodium Chloride 112 mls @ 56 mls/hr IV Q2H [facility] Stop: 10/20/20 13:59 Last Admin: 10/20/20 12:15 Dose: 56 mls/hr Documented by: Lactated Ringer's (Ringers, Lactated) Confirm Administered Dose 1,000 mls @ as directed .ROUTE .STK-MED ONE Stop: 10/20/20 17:16 Cefazolin Sodium/Dextrose 1 gm (/ Premix) 50 mls @ 100 mls/hr IV Q8HR [facility] Stop: 10/21/20 14:29 Ketamine HCl (Ketamine 500 Mg/5 Ml Mdv) 15 mg IV ONETIME ONE Stop: 10/19/20 17:22 Last Admin: 10/19/20 17:25 Dose: 15 mg Documented by: Lisinopril (Lisinopril 10 Mg Tab) Confirm Administered Dose 20 mg .ROUTE .STK- MED ONE Stop: 10/19/20 21:14 Last Admin: 10/19/20 21:27 Dose: Not Given Documented by: Midazolam HCl (Midazolam 1 Mg/Ml 2 Ml Sdv) Confirm Administered Dose 2 mg .ROUTE .STK-MED ONE Stop: 10/20/20 10:20 Ondansetron HCl (Ondansetron 4 Mg/2 Ml Sdv) 4 mg IVPUSH ONETIME ONE Stop: 10/19/20 16:58 Last Admin: 10/19/20 17:00 Dose: 4 mg Documented by: Phenylephrine HCl (Phenylephrine 1% 10 Mg/Ml Sdv) Confirm Administered Dose 10 mg .ROUTE .STK-MED ONE Stop: 10/20/20 16:30 Potassium Chloride (Potassium Chloride 20 Meq Tab.Er) 40 meq PO ONETIME ONE Stop: 10/21/20 08:01 Last Admin: 10/21/20 08:29 Dose: 40 meq Documented by: Povidone Iodine (Povidone-Iodine 10% Soln 118.25 Ml Bottle) Confirm Administered Dose 1 ml .ROUTE .STK-MED ONE Stop: 10/20/20 08:34 Last Admin: 10/20/20 17:14 Dose: 40 ml Documented by: Propofol (Propofol 200 Mg/20 Ml Sdv) Confirm Administered Dose 200 mg .ROUTE .ST K-MED ONE Stop: 10/20/20 10:20 Sugammadex Sodium (Sugammadex Sodium 200 Mg/2 Ml Vial) Confirm Administered Dose 200 mg .ROUTE .STK-MED ONE Stop: 10/20/20 10:22 - Exam Wound/Incisions: Healing Well, Dressing Dry and Intact, No Drainage Quality Assessment: Urine Catheter, DVT Prophylaxis General: Alert, Cooperative Extremities: Leg Pain (left ) Skin: Dry, Intact Neurological: No New Focal Deficit Psy/Mental Status: Alert, Normal Affect Sepsis Event Note - Evaluation Sepsis Screening Result: No Definite Risk - Focused Exam Vital Signs: Vital Signs Temp Pulse Resp BP Pulse Ox 10/21/20 08:00 97.8 F 78 21 H 97/37 L 96 10/21/20 07:38 96 10/21/20 04:00 98.1 F 16 126/45 L 91 L 10/21/20 00:00 97.6 F 20 113/54 L 92 L 10/20/20 23:00 24 H 113/54 L 97 10/20/20 22:00 16 108/47 L 94 L - Problem List & Annotations (1) History of hemiarthroplasty of left hip SNOMED Code(s): 707126583 Code(s): Z96.642 - PRESENCE OF LEFT ARTIFICIAL HIP JOINT Status: Acute Current Visit: Yes (2) Postoperative anemia SNOMED Code(s): 956729783, 151838833 Code(s): D64.9 - ANEMIA, UNSPECIFIED Status: Acute Current Visit: Yes - Problem List Review Problem List Initiated/Reviewed/Updated: Yes - My Orders Last 24 Hours: Active Orders 24 hr Category Date Time Status Dietary Supplements [RC] BIDMEALS Care 10/20/20 17:45 Active Regular Diet [DIET] Diet 10/20/20 Dinner Active CALCIUM IONIZED,ISTAT [POC] Stat Lab 10/21/20 17:00 Ordered POTASSIUM,K [CHEM] Stat Lab 10/21/20 17:00 Ordered Calcium Gluconate 2 gm Med 10/21/20 09:00 Active Sodium Chloride 0.9% [Normal Saline] 100 ml IV ONETIME Chlorthalidone Med 10/20/20 09:00 Active 25 mg PO DAILY Docusate Sodium [Colace] Med 10/20/20 21:00 Active 100 mg PO BID Enoxaparin [Lovenox] Med 10/21/20 09:00 Active 30 mg SUBCUT Q24H Levothyroxine [Synthroid] Med 10/20/20 09:00 Active 88 mcg PO DAILY@0730 Multivitamins w-Iron/Ca/FA/Min [Thera M Plus] Med 10/20/20 09:00 Active 1 tab PO DAILY Potassium Chloride 20 meq Med 10/21/20 06:45 Active Lidocaine 1% [Xylocaine 1%] 2 ml Sodium Chloride 0.9% [Normal Saline] 100 ml IV Q2H Potassium Chloride [Klor-Con M20] Med 10/21/20 13:00 Once 40 meq PO ONETIME ONE Sodium Chloride 0.9% [Normal Saline] 500 ml Med 10/21/20 09:30 Active IV ONETIME amLODIPine [Norvasc] Med 10/20/20 09:00 Active 5 mg PO DAILY atorvaSTATin [Lipitor] Med 10/20/20 09:00 Active 20 mg PO DAILY ceFAZolin [Ancef] 1 gm Med 10/20/20 22:00 Active Sodium Chloride 0.9% [Normal Saline] 50 ml IV Q8H Weight bearing status [OM.PC] Routine Oth 10/20/20 17:32 Ordered Medication Orders Acetaminophen (Acetaminophen 325 Mg Tab) 650 mg PO Q4H PRN PRN Reason: Pain (Mild 1-3)/fever Last Admin: 10/20/20 05:09 Dose: 650 mg Documented by: JEFERSON Albuterol (Albuterol 0.083% 2.5 Mg/3 Ml Neb Soln) 2.5 mg NEB Q4H PRN PRN Reason: Shortness Of Breath/wheezing Last Admin: 10/20/20 20:40 Dose: 2.5 mg Documented by: JEFERSON Amlodipine Besylate (Amlodipine 5 Mg Tab) 5 mg PO DAILY [facility] Last Admin: 10/20/20 08:23 Dose: 5 mg Documented by: NANNETTE Atorvastatin Calcium (Atorvastatin 20 Mg Tab) 20 mg PO DAILY [facility] Last Admin: 10/21/20 08:29 Dose: 20 mg Documented by: Admin: 10/20/20 08:26 Dose: 20 mg Documented by: NANNETTE Carvedilol (Carvedilol 12.5 Mg Tab) 25 mg PO BID [facility] Last Admin: 10/20/20 20:42 Dose: 25 mg Documented by: Admin: 10/20/20 08:22 Dose: 25 mg Documented by: Admin: 10/19/20 21:23 Dose: 25 mg Documented by: JEFERSON Chlorthalidone (Chlorthalidone 25 Mg Tab) 25 mg PO DAILY [facility] Last Admin: 10/20/20 08:21 Dose: 25 mg Documented by: NANNETTE Citalopram Hydrobromide (Citalopram 10 Mg Tab) 10 mg PO BEDTIME [facility] Last Admin: 10/20/20 20:43 Dose: 10 mg Documented by: Admin: 10/19/20 22:01 Dose: 10 mg Documented by: JEFERSON Docusate Sodium (Docusate Sodium 100 Mg Cap) 100 mg PO BID [facility] Last Admin: 10/21/20 08:29 Dose: 100 mg Documented by: Admin: 10/20/20 20:43 Dose: 100 mg Documented by: JEFERSON Doxazosin Mesylate (Doxazosin 4 Mg Tab) 2 mg PO BID [facility] Last Admin: 10/20/20 20:43 Dose: 2 mg Documented by: Admin: 10/20/20 08:27 Dose: 2 mg Documented by: Admin: 10/19/20 21:22 Dose: 2 mg Documented by: JEFERSON Enoxaparin Sodium (Enoxaparin 30 Mg/0.3 Ml Syringe) 30 mg SUBCUT Q24H [facility] Last Admin: 10/21/20 08:30 Dose: 30 mg Documented by: KIMBERLY Hydroxychloroquine Sulfate (Hydroxychloroquine 200 Mg Tab) 200 mg PO BID [facility] Last Admin: 10/21/20 08:29 Dose: 200 mg Documented by: Admin: 10/20/20 20:43 Dose: 200 mg Documented by: Admin: 10/20/20 08:21 Dose: 200 mg Documented by: Admin: 10/19/20 21:24 Dose: 200 mg Documented by: JEFERSON Sodium Chloride (Normal Saline) 1,000 mls @ 125 mls/hr IV ASDIRECTED [facility] Last Admin: 10/21/20 03:28 Dose: 125 mls/hr Documented by: Infusion: 10/21/20 02:46 Dose: 125 mls/hr Documented by: Admin: 10/20/20 18:46 Dose: 125 mls/hr Documented by: Infusion: 10/20/20 11:25 Dose: 125 mls/hr Documented by: Admin: 10/20/20 03:25 Dose: 125 mls/hr Documented by: Infusion: 10/20/20 03:25 Dose: 125 mls/hr Documented by: Admin: 10/19/20 20:12 Dose: 125 mls/hr Documented by: JEFERSON Cefazolin Sodium 1 gm/ Sodium (Chloride) 50 mls @ 100 mls/hr IV Q8H [facility] Stop: 10/21/20 14:29 Last Admin: 10/21/20 06:01 Dose: 100 mls/hr Documented by: Admin: 10/20/20 21:52 Dose: 100 mls/hr Documented by: JEFERSON Potassium Chloride 20 meq/Lidocaine HCl 2 ml/ Sodium Chloride 112 mls @ 50 mls/hr IV Q2H [facility] Stop: 10/21/20 10:44 Last Admin: 10/21/20 09:21 Dose: 50 mls/hr Documented by: Infusion: 10/21/20 09:14 Dose: 50 mls/hr Documented by: Admin: 10/21/20 06:59 Dose: 50 mls/hr Documented by: NAJMA Calcium Gluconate 2 gm/ Sodium (Chloride) 120 mls @ 100 mls/hr IV ONETIME ONE Stop: 10/21/20 10:11 Last Admin: 10/21/20 09:21 Dose: 100 mls/hr Documented by: KIMBERLY Sodium Chloride (Normal Saline) 500 mls @ 500 mls/hr IV ONETIME ONE Stop: 10/21/20 10:29 Last Admin: 10/21/20 09:27 Dose: 500 mls/hr Documented by: KIMBERLY Levothyroxine Sodium (Levothyroxine 88 Mcg Tab) 88 mcg PO DAILY@0730 [facility] Last Admin: 10/21/20 07:31 Dose: 88 mcg Documented by: Admin: 10/20/20 08:32 Dose: 88 mcg Documented by: NANNETTE Lisinopril (Lisinopril 20 Mg Tab) 20 mg PO BID [facility] Last Admin: 10/20/20 20:42 Dose: 20 mg Documented by: Admin: 10/20/20 08:28 Dose: 20 mg Documented by: Admin: 10/19/20 21:24 Dose: 20 mg Documented by: JEFERSON Morphine Sulfate (Morphine 2 Mg/Ml Syringe) 2 mg IVPUSH Q2H PRN PRN Reason: Pain (severe 7-10) Last Admin: 10/21/20 03:28 Dose: 2 mg Documented by: Admin: 10/20/20 18:51 Dose: 2 mg Documented by: Admin: 10/20/20 15:49 Dose: 2 mg Documented by: Admin: 10/20/20 13:32 Dose: 2 mg Documented by: Admin: 10/20/20 11:35 Dose: 2 mg Documented by: Admin: 10/20/20 07:53 Dose: 2 mg Documented by: Admin: 10/20/20 03:25 Dose: 2 mg Documented by: JEFERSON Multivitamins/Minerals (Multivitamins With Iron/Calcium/Folic Acid/Minerals Tab) 1 tab PO DAILY [facility] Last Admin: 10/21/20 08:27 Dose: 1 tab Documented by: Admin: 10/20/20 08:28 Dose: 1 tab Documented by: NANNETTE Ondansetron HCl (Ondansetron 4 Mg Tab.Dis) 4 mg PO Q6H PRN PRN Reason: Nausea able to take PO Oxycodone HCl (Oxycodone 5 Mg Tab) 10 mg PO Q4H PRN PRN Reason: Pain (moderate 4-6) Last Admin: 10/21/20 07:31 Dose: 10 mg Documented by: Admin: 10/20/20 08:57 Dose: 10 mg Documented by: Admin: 10/20/20 05:09 Dose: 10 mg Documented by: JEFERSON Pantoprazole Sodium (Pantoprazole 40 Mg Vial) 40 mg IV BEDTIME [facility] Last Admin: 10/20/20 20:40 Dose: 40 mg Documented by: Admin: 10/19/20 21:25 Dose: 40 mg Documented by: JEFERSON Potassium Chloride (Potassium Chloride 20 Meq Tab.Er) 40 meq PO ONETIME ONE Stop: 10/21/20 13:01 Sulfasalazine (Sulfasalazine 500 Mg Tab) 1,000 mg PO BID [facility] Last Admin: 10/21/20 08:27 Dose: 1,000 mg Documented by: Admin: 10/20/20 20:42 Dose: 1,000 mg Documented by: Admin: 10/20/20 08:24 Dose: 1,000 mg Documented by: Admin: 10/19/20 21:25 Dose: 1,000 mg Documented by: JEFERSON - Assessment Assessment (Free Text/Narrative):: Patient is a pleasant 80 y/o female, status post left hemiarthroplasty, POD#1. Patient tolerated surgery well with no significant complications. Patient has been hypotensive this morning; antihypertensive medication held and 500 mL saline bolus was administered. Requiring 1-2 L O2 to maintain oxygen saturation >90%. Labs reviewed this morning; HgB declined to 8.4. Also has low sodium, calcium, and potassium. Upon visiting with patient this morning, she reports significant pain in left hip with transfer from bed to chair. When I reminded patient surgery was less than 24 hours ago, she was confused and thought surgery was 3 days ago. Daughter states patient seems "cloudy and a little out of it" this morning. Patient denied dizziness with transfer to chair. Denied numbness or tingling in L LE. Endorsed mild pain in L hip at rest in chair. Reports minimal appetite. Denied nausea or emesis. Has not had a bowel movement since prior to admission; scheduled BID colace has been ordered. Patient requires inpatient status at this time for continued medical management, monitoring of post-operative vitals, and additional therapy services to progress ambulation abilities. Exam: Alert to self and place. Left hip dressing is dry and intact. No drainage, no surrounding erythema. Mild warmth to touch of left hip. Very mild pedal edema of left compared to that of right. Tibialis posterior pulse appreciated, 2+. Left calf is soft and supple. Plan: * Hospitalist to kindly continue medical management of this patient * Patient's confusion appears very mild at this time. May be attributed to recent anesthesia or pain medication regimen. Continue with current pain regimen for now. Could consider hydrocodone and/or tramadol if confusion persists with the oxycodone and morphine * Continue with 30 mg subcutaneous Lovenox qd for chemical DVT prophylaxis and bilateral LE SCDs for mechanical prophylaxis * García catheter to remain in until ambulation abilities progress * Wean to room air as tolerated * L hip dressing change will be performed tomorrow by orthopedic provider * PT and OT consults in place; patient to participate in PT and OT daily while in the hospital. May WBAT on L LE * Anticipate discharge to SNF when medically stable, ambulation abilities improve, and pain is controlled with PO medications
[2020-10-21] MEDS ORDERED: Sodium Chloride 0.9% 1,000 ML IV ONE (11:44)
--- NOTE | 2020-10-21 14:00 | PCM.PN ---
- General Info Date of Service: 10/21/20 Subjective Update: Ms. Winter has experienced significant pain this morning related to her surgical repair of hip fracture. Blood pressures have been somewhat soft but responded t o IV fluids, blood pressure medications have been held. Functional Status: Reports: Tolerating Diet - Review of Systems General: Reports: Weakness, Fatigue. Denies: Fever, Chills Pulmonary: Reports: No Symptoms Cardiovascular: Reports: No Symptoms Gastrointestinal: Reports: No Symptoms Musculoskeletal: Reports: Joint Pain - Patient Data Vitals - Most Recent: Last Vital Signs Temp 97.8 F 10/21/20 08:00 Pulse 87 10/21/20 12:03 Resp 15 10/21/20 12:03 BP 98/47 L 10/21/20 12:03 Pulse Ox 96 10/21/20 13:34 Weight - Most Recent: 160 lb I&O - Last 24 Hours: Intake & Output 10/20/20 10/21/20 10/21/20 22:59 06:59 14:59 Intake Total 2021 1828 300 Output Total 65 575 10 Balance 138H 1253 20@ Lab Results Last 24 Hours: Laboratory Results - last 24 hr 10/21/20 10/21/20 10/21/20 Range/Units 05:40 05:40 06:44 WBC 9.3 (4.5-11.0) K/uL RBC 2.56 L (3.30-5.50) M/uL Hgb 8.4 L D (12.0-15.0) g/dL Hct 25.2 L (36.0-48.0) % MCV 98 (80-98) fL MCH 33 H (27-31) pg MCHC 33 (32-36) % Plt Count 145 L (150-400) K/uL Neut % (Auto) 77.2 H (36-66) % Lymph % (Auto) 8.4 L (24-44) % [place] % (Auto) 13.6 H (2-6) % Eos % (Auto) 0.7 L (2-4) % Baso % (Auto) 0.1 (0-1) % Sodium 136 L (140-148) mmol/L Potassium 2.9 L* (3.6-5.2) mmol/L Chloride 103 (100-108) mmol/L Carbon Dioxide 25 (21-32) mmol/L Anion Gap 10.9 (5.0-14.0) mmol/L BUN 9 (7-18) mg/dL Creatinine 0.5 L (0.6-1.0) mg/dL Est Cr Clr Drug Dosing 76.71 mL/min Estimated GFR (MDRD) > 60 (>60) Glucose 59 L (74-106) mg/dL Calcium 6.2 L* D (8.5-10.1) mg/dL POC WB Ioniz Calcium 1.00 L* (1.12-1.32) mmol/L 10/21/20 Range/Units 11:52 WBC (4.5-11.0) K/uL RBC (3.30-5.50) M/uL Hgb 9.1 L (12.0-15.0) g/dL Hct (36.0-48.0) % MCV (80-98) fL MCH (27-31) pg MCHC (32-36) % Plt Count (150-400) K/uL Neut % (Auto) (36-66) % Lymph % (Auto) (24-44) % [place] % (Auto) (2-6) % Eos % (Auto) (2-4) % Baso % (Auto) (0-1) % Sodium (140-148) mmol/L Potassium (3.6-5.2) mmol/L Chloride (100-108) mmol/L Carbon Dioxide (21-32) mmol/L Anion Gap (5.0-14.0) mmol/L BUN (7-18) mg/dL Creatinine (0.6-1.0) mg/dL Est Cr Clr Drug Dosing mL/min Estimated GFR (MDRD) (>60) Glucose (74-106) mg/dL Calcium (8.5-10.1) mg/dL POC WB Ioniz Calcium (1.12-1.32) mmol/L Med Orders - Current: Current Medications Acetaminophen (Acetaminophen 325 Mg Tab) 650 mg PO Q4H PRN PRN Reason: Pain (Mild 1-3)/fever Last Admin: 10/20/20 05:09 Dose: 650 mg Documented by: Albuterol (Albuterol 0.083% 2.5 Mg/3 Ml Neb Soln) 2.5 mg NEB Q4H PRN PRN Reason: Shortness Of Breath/wheezing Last Admin: 10/20/20 20:40 Dose: 2.5 mg Documented by: Atorvastatin Calcium (Atorvastatin 20 Mg Tab) 20 mg PO DAILY [facility] Last Admin: 10/21/20 08:29 Dose: 20 mg Documented by: Carvedilol (Carvedilol 12.5 Mg Tab) 25 mg PO BID [facility] Last Admin: 10/21/20 10:04 Dose: Not Given Documented by: Citalopram Hydrobromide (Citalopram 10 Mg Tab) 10 mg PO BEDTIME [facility] Last Admin: 10/20/20 20:43 Dose: 10 mg Documented by: Docusate Sodium (Docusate Sodium 100 Mg Cap) 100 mg PO BID [facility] Last Admin: 10/21/20 08:29 Dose: 100 mg Documented by: Enoxaparin Sodium (Enoxaparin 30 Mg/0.3 Ml Syringe) 30 mg SUBCUT Q24H [facility] Last Admin: 10/21/20 08:30 Dose: 30 mg Documented by: Hydroxychloroquine Sulfate (Hydroxychloroquine 200 Mg Tab) 200 mg PO BID [facility] Last Admin: 10/21/20 08:29 Dose: 200 mg Documented by: Sodium Chloride (Normal Saline) 1,000 mls @ 125 mls/hr IV ASDIRECTED [facility] Last Admin: 10/21/20 10:47 Dose: 125 mls/hr Documented by: Cefazolin Sodium 1 gm/ Sodium (Chloride) 50 mls @ 100 mls/hr IV Q8H [facility] Stop: 10/21/20 14:29 Last Admin: 10/21/20 13:40 Dose: 100 mls/hr Documented by: Levothyroxine Sodium (Levothyroxine 88 Mcg Tab) 88 mcg PO DAILY@0730 [facility] Last Admin: 10/21/20 07:31 Dose: 88 mcg Documented by: Lisinopril (Lisinopril 20 Mg Tab) 20 mg PO BID [facility] Last Admin: 10/21/20 10:04 Dose: Not Given Documented by: Morphine Sulfate (Morphine 2 Mg/Ml Syringe) 2 mg IVPUSH Q2H PRN PRN Reason: Pain (severe 7-10) Last Admin: 10/21/20 12:46 Dose: 1 mg Documented by: Multivitamins/Minerals (Multivitamins With Iron/Calcium/Folic Acid/Minerals Tab) 1 tab PO DAILY [facility] Last Admin: 10/21/20 08:27 Dose: 1 tab Documented by: Ondansetron HCl (Ondansetron 4 Mg Tab.Dis) 4 mg PO Q6H PRN PRN Reason: Nausea able to take PO Oxycodone HCl (Oxycodone 5 Mg Tab) 10 mg PO Q4H PRN PRN Reason: Pain (moderate 4-6) Last Admin: 10/21/20 11:29 Dose: 10 mg Documented by: Pantoprazole Sodium (Pantoprazole 40 Mg Vial) 40 mg IV BEDTIME [facility] Last Admin: 10/20/20 20:40 Dose: 40 mg Documented by: Sulfasalazine (Sulfasalazine 500 Mg Tab) 1,000 mg PO BID [facility] Last Admin: 10/21/20 08:27 Dose: 1,000 mg Documented by: Discontinued Medications Amlodipine Besylate (Amlodipine 5 Mg Tab) 5 mg PO DAILY [facility] Last Admin: 10/21/20 10:04 Dose: Not Given Documented by: Cefazolin Sodium (Cefazolin 1 Gm Vial) Confirm Administered Dose 1 gm .ROUTE .STK-MED ONE Stop: 10/20/20 21:35 Last Admin: 10/20/20 21:50 Dose: Not Given Documented by: Chlorthalidone (Chlorthalidone 25 Mg Tab) 25 mg PO DAILY [facility] Last Admin: 10/21/20 10:04 Dose: Not Given Documented by: Citalopram Hydrobromide (Citalopram 10 Mg Tab) 10 mg PO DAILY [facility] Docusate Sodium (Docusate Sodium 100 Mg Cap) 100 mg PO BID PRN PRN Reason: Constipation Last Admin: 10/19/20 21:25 Dose: 100 mg Documented by: Doxazosin Mesylate (Doxazosin 4 Mg Tab) 2 mg PO BID [facility] Last Admin: 10/21/20 10:03 Dose: Not Given Documented by: Ephedrine Sulfate (Ephedrine 50 Mg/Ml Sdv) Confirm Administered Dose 50 mg .ROUTE .STK-MED ONE Stop: 10/20/20 16:29 Fentanyl (Fentanyl 100 Mcg/2 Ml Sdv) Confirm Administered Dose 100 mcg .ROUTE .STK-MED ONE Stop: 10/20/20 10:20 Hydromorphone HCl (Hydromorphone 1 Mg/Ml Syringe) 1 mg IVPUSH ONETIME ONE Stop: 10/19/20 16:58 Last Admin: 10/19/20 17:01 Dose: 1 mg Documented by: Hydromorphone HCl (Hydromorphone 0.5 Mg/0.5 Ml Syringe) 0.5 mg IVPUSH ONETIME ONE Stop: 10/19/20 17:21 Last Admin: 10/19/20 20:59 Dose: Not Given Documented by: Hydromorphone HCl (Hydromorphone 1 Mg/Ml Syringe) 1 mg IVPUSH ONETIME ONE Stop: 10/19/20 18:37 Last Admin: 10/19/20 18:39 Dose: 1 mg Documented by: Cefazolin Sodium/Dextrose 1 gm (/ Premix) 50 mls @ 100 mls/hr IV ONETIME ONE Stop: 10/20/20 16:29 Last Admin: 10/20/20 15:51 Dose: 100 mls/hr Documented by: Potassium Chloride 20 meq/Lidocaine HCl 2 ml/ Sodium Chloride 112 mls @ 56 mls/hr IV Q2H [facility] Stop: 10/20/20 13:59 Last Admin: 10/20/20 12:15 Dose: 56 mls/hr Documented by: Lactated Ringer's (Ringers, Lactated) Confirm Administered Dose 1,000 mls @ as directed .ROUTE .STK-MED ONE Stop: 10/20/20 17:16 Cefazolin Sodium/Dextrose 1 gm (/ Premix) 50 mls @ 100 mls/hr IV Q8HR [facility] Stop: 10/21/20 14:29 Potassium Chloride 20 meq/Lidocaine HCl 2 ml/ Sodium Chloride 112 mls @ 50 mls/hr IV Q2H [facility] Stop: 10/21/20 10:44 Last Admin: 10/21/20 09:21 Dose: 50 mls/hr Documented by: Calcium Gluconate 2 gm/ Sodium (Chloride) 120 mls @ 100 mls/hr IV ONETIME ONE Stop: 10/21/20 10:11 Last Admin: 10/21/20 09:21 Dose: 100 mls/hr Documented by: Sodium Chloride (Normal Saline) 500 mls @ 500 mls/hr IV ONETIME ONE Stop: 10/21/20 10:29 Last Admin: 10/21/20 09:27 Dose: 500 mls/hr Documented by: Sodium Chloride (Normal Saline) 1,000 mls @ 500 mls/hr IV .BOLUS ONE Stop: 10/21/20 13:43 Last Admin: 10/21/20 11:56 Dose: 500 mls/hr Documented by: Ketamine HCl (Ketamine 500 Mg/5 Ml Mdv) 15 mg IV ONETIME ONE Stop: 10/19/20 17:22 Last Admin: 10/19/20 17:25 Dose: 15 mg Documented by: Lisinopril (Lisinopril 10 Mg Tab) Confirm Administered Dose 20 mg .ROUTE .STK- MED ONE Stop: 10/19/20 21:14 Last Admin: 10/19/20 21:27 Dose: Not Given Documented by: Midazolam HCl (Midazolam 1 Mg/Ml 2 Ml Sdv) Confirm Administered Dose 2 mg .ROUTE .STK-MED ONE Stop: 10/20/20 10:20 Ondansetron HCl (Ondansetron 4 Mg/2 Ml Sdv) 4 mg IVPUSH ONETIME ONE Stop: 10/19/20 16:58 Last Admin: 10/19/20 17:00 Dose: 4 mg Documented by: Phenylephrine HCl (Phenylephrine 1% 10 Mg/Ml Sdv) Confirm Administered Dose 10 mg .ROUTE .STK-MED ONE Stop: 10/20/20 16:30 Potassium Chloride (Potassium Chloride 20 Meq Tab.Er) 40 meq PO ONETIME ONE Stop: 10/21/20 08:01 Last Admin: 10/21/20 08:29 Dose: 40 meq Documented by: Potassium Chloride (Potassium Chloride 20 Meq Tab.Er) 40 meq PO ONETIME ONE Stop: 10/21/20 13:01 Last Admin: 10/21/20 13:39 Dose: 40 meq Documented by: Povidone Iodine (Povidone-Iodine 10% Soln 118.25 Ml Bottle) Confirm Administered Dose 1 ml .ROUTE .STK-MED ONE Stop: 10/20/20 08:34 Last Admin: 10/20/20 17:14 Dose: 40 ml Documented by: Propofol (Propofol 200 Mg/20 Ml Sdv) Confirm Administered Dose 200 mg .ROUTE .STK-MED ONE Stop: 10/20/20 10:20 Sugammadex Sodium (Sugammadex Sodium 200 Mg/2 Ml Vial) Confirm Administered Dose 200 mg .ROUTE .STK-MED ONE Stop: 10/20/20 10:22 - Exam Urinary Catheter Total Time: 0Days 14Hours General: Alert, Oriented, Cooperative, Moderate Distress Lungs: Clear to Auscultation, Normal Respiratory Effort Cardiovascular: Regular Rate, Regular Rhythm, No Murmurs GI/Abdominal Exam: Soft, Non-Tender, No Organomegaly, No Distention Extremities: No Pedal Edema - Patient Data Lab Results Last 24 hrs: Laboratory Results - last 24 hr 10/21/20 10/21/20 10/21/20 Range/Units 05:40 05:40 06:44 WBC 9.3 (4.5-11.0) K/uL RBC 2.56 L (3.30-5.50) M/uL Hgb 8.4 L D (12.0-15.0) g/dL Hct 25.2 L (36.0-48.0) % MCV 98 (80-98) fL MCH 33 H (27-31) pg MCHC 33 (32-36) % Plt Count 145 L (150-400) K/uL Neut % (Auto) 77.2 H (36-66) % Lymph % (Auto) 8.4 L (24-44) % [place] % (Auto) 13.6 H (2-6) % Eos % (Auto) 0.7 L (2-4) % Baso % (Auto) 0.1 (0-1) % Sodium 136 L (140-148) mmol/L Potassium 2.9 L* (3.6-5.2) mmol/L Chloride 103 (100-108) mmol/L Carbon Dioxide 25 (21-32) mmol/L Anion Gap 10.9 (5.0-14.0) mmol/L BUN 9 (7-18) mg/dL Creatinine 0.5 L (0.6-1.0) mg/dL Est Cr Clr Drug Dosing 76.71 mL/min Estimated GFR (MDRD) > 60 (>60) Glucose 59 L (74-106) mg/dL Calcium 6.2 L* D (8.5-10.1) mg/dL POC WB Ioniz Calcium 1.00 L* (1.12-1.32) mmol/L 10/21/20 Range/Units 11:52 WBC (4.5-11.0) K/uL RBC (3.30-5.50) M/uL Hgb 9.1 L (12.0-15.0) g/dL Hct (36.0-48.0) % MCV (80-98) fL MCH (27-31) pg MCHC (32-36) % Plt Count (150-400) K/uL Neut % (Auto) (36-66) % Lymph % (Auto) (24-44) % [place] % (Auto) (2-6) % Eos % (Auto) (2-4) % Baso % (Auto) (0-1) % Sodium (140-148) mmol/L Potassium (3.6-5.2) mmol/L Chloride (100-108) mmol/L Carbon Dioxide (21-32) mmol/L Anion Gap (5.0-14.0) mmol/L BUN (7-18) mg/dL Creatinine (0.6-1.0) mg/dL Est Cr Clr Drug Dosing mL/min Estimated GFR (MDRD) (>60) Glucose (74-106) mg/dL Calcium (8.5-10.1) mg/dL POC WB Ioniz Calcium (1.12-1.32) mmol/L Result Diagrams: 10/21/20 11:52 10/21/20 05:40 Sepsis Event Note - Evaluation Sepsis Screening Result: No Definite Risk - Focused Exam Vital Signs: Vital Signs Temp Pulse Pulse Resp BP BP Pulse Ox 10/21/20 13:34 96 10/21/20 12:03 87 15 98/47 L 93 L 10/21/20 12:00 86 20 84/45 L 93 L 10/21/20 10:04 74 92/38 L 10/21/20 10:03 92/38 L 10/21/20 08:00 97.8 F 78 21 H 97/37 L 96 10/21/20 07:38 96 10/21/20 04:00 98.1 F 16 126/45 L 91 L - Problem List Review Problem List Initiated/Reviewed/Updated: Yes - My Orders Last 24 Hours: My Active Orders 10/21/20 17:00 CALCIUM IONIZED,ISTAT [POC] Stat POTASSIUM,K [CHEM] Stat 10/22/20 05:00 BASIC METABOLIC PANEL,BMP [CHEM] Timed CBC WITH AUTO DIFF [HEME] Timed - Plan Plan:: ASSESSMENT AND PLAN LEFT HIP FRACTURE-status post surgical repair -IV fluids for hydration -Pain and nausea medication as needed -Postoperative care per Dr. Gupta ALCOHOL USE DISORDER- Mrs. Winter reports drinks several drinks every day for the past five years since her . Starts with [employer] (vodka) then has several glasses of wine. denies ever having alcohol withdrawal. discussed will be monitored for any withdrawal. -[facility] Protocol HYPERTENSION -telemetry -Continue outpatient medical therapy HYPOTHYROIDISM -continue outpatient medical therapy -Synthyroid 88 mcg daily CHRONIC DIARRHEA -continue outpatient medical therapy -Sulfasalazine 1000 mg bid HYPOKALEMIA -IV and oral potassium replacement -Recheck potassium level later today and in the a.m. MAINTENANCE ISSUES -DVT prophylaxis; as above -GI prophylaxis - IV Protonic 40 mg daily -García catheter; will be placed because of severe pain with movement -Nutrition; regular diet, n.p.o. after midnight -Nicotine dependence; not required - quit smoking 22 years ago. -consult to PT -consult to OT CODE STATUS-FULL CODE ADMISSION STATUS-patient will be admitted to inpatient status, expect at least a 2 night hospital stay for evaluation and management of problems as outlined above. At the time of this admission I do not reasonably expected evaluation and management of this problem will require more than a 96 hour hospital stay. DISPOSITION-anticipate discharge to residential PRIMARY CARE PROVIDER-Dr. Kin Campos, [facility], [place], [place]. SURGERY SERVICE- Dr. Gupta, Orthopedic Surgeon HOSPITALIST - Dr. Dumont
[2020-10-21] MEDS: Norepinephrine 4 MG in Dextrose 5% in Water 246 ML IV SCH ×2 (16:21)
[2020-10-21] MEDS: Pantoprazole 40 MG Vial IV SCH (21:01)
[2020-10-21] MEDS: Albuterol 0.083% 2.5 MG/3 ML Neb Soln NEB PRN (21:02)
[2020-10-21] MEDS: Citalopram 10 MG Tab PO SCH (23:15)
[2020-10-22] MEDS: Norepinephrine 4 MG in Dextrose 5% in Water 246 ML IV SCH ×8 (00:05→16:57)
[2020-10-22] MEDS: Sodium Chloride 0.9% 1,000 ML IV SCH (04:47)
[2020-10-22] MEDS: oxyCODONE 5 MG Tab PO PRN ×3 (06:23→23:37)
[2020-10-22] MEDS: Levothyroxine 88 MCG Tab PO SCH (07:41)
--- NOTE | 2020-10-22 09:07 | CR ---
CHEST: Portable 10/22/2020 at 8:59 AM CLINICAL HISTORY:Leukocytosis, hypotension COMPARISON:None FINDINGS: Heart size and pulmonary vascularity are normal. There are atherosclerotic changes in the aorta.. There is density in the medial right apex. This may be widening of brachycephalic vasculature. Mass or consolidation is not excluded. Impression: There is density along the right paratracheal region and right medial apex. This could represent an widening of brachycephalic vasculature but to the lung mass or apical scarring are also consideration. Short-term follow-up or CT chest should be considered when condition allows
[2020-10-22] MEDS: Lisinopril 20 MG Tab PO SCH ×2 (10:24→21:07)
[2020-10-22] MEDS: Enoxaparin 30 MG/0.3 ML Syringe SUBCUT SCH (10:50)
[2020-10-22] MEDS: sulfaSALAzine 500 MG Tab PO SCH ×2 (10:50→21:12)
[2020-10-22] MEDS: Multivitamins with Iron/Calcium/Folic Acid/Minerals Tab PO SCH (10:51)
[2020-10-22] MEDS: atorvaSTATin 20 MG Tab PO SCH (10:51)
[2020-10-22] MEDS: Hydroxychloroquine 200 MG Tab PO SCH ×2 (10:51→21:07)
[2020-10-22] MEDS: Docusate Sodium 100 MG Cap PO SCH ×2 (10:52→21:07)
[2020-10-22] MEDS: Carvedilol 12.5 MG Tab PO SCH ×2 (10:52→21:07)
--- NOTE | 2020-10-22 14:21 | PCM.SURGPN ---
- General Info Date of Service: 10/22/20 Date of Surgery/Procedure: 10/20/20 POD#: 2 Post-Op Diagnosis: left femoral neck fracture Functional Status: Reports: Tolerating Diet, Incentive Spirometry - Review of Systems General: Reports: Weakness HEENT: Reports: No Symptoms Pulmonary: Reports: Shortness of Breath Cardiovascular: Reports: Dyspnea on Exertion Musculoskeletal: Reports: Joint Pain (left hip ), Joint Swelling (left hip, left knee) - Patient Data Vitals - Most Recent: Last Vital Signs Temp 97.8 F 10/22/20 14:00 Pulse 81 10/22/20 14:00 Resp 16 10/22/20 14:00 BP 137/58 L 10/22/20 14:00 Pulse Ox 92 L 10/22/20 14:00 Weight - Most Recent: 177 lb 14.609 oz I&O - Last 24 Hours: Intake & Output 10/21/20 10/22/20 10/22/20 22:59 06:59 14:59 Intake Total 2881 2616 390 Output Total 160 23* 40 Balance 2721 2392 350 Lab Results Last 24 Hrs: Laboratory Results - last 24 hr 10/21/20 10/21/20 10/22/20 Range/Units 17:02 17:02 05:14 WBC (4.5-11.0) K/uL RBC (3.30-5.50) M/uL Hgb (12.0-15.0) g/dL Hct (36.0-48.0) % MCV (80-98) fL MCH (27-31) pg MCHC (32-36) % Plt Count (150-400) K/uL Neut % (Auto) (36-66) % Lymph % (Auto) (24-44) % [place] % (Auto) (2-6) % Eos % (Auto) (2-4) % Baso % (Auto) (0-1) % Sodium (140-148) mmol/L Potassium 5.0 (3.6-5.2) mmol/L Chloride (100-108) mmol/L Carbon Dioxide (21-32) mmol/L Anion Gap (5.0-14.0) mmol/L BUN (7-18) mg/dL Creatinine (0.6-1.0) mg/dL Est Cr Clr Drug Dosing mL/min Estimated GFR (MDRD) (>60) Glucose (74-106) mg/dL Calcium (8.5-10.1) mg/dL POC WB Ioniz Calcium 1.16 (1.12-1.32) mmol/L Blood Type A POSITIVE Gel Antibody Screen Negative Crossmatch See Detail 10/22/20 10/22/20 Range/Units 05:28 05:28 WBC 15.6 H (4.5-11.0) K/uL RBC 2.25 L (3.30-5.50) M/uL Hgb 7.5 L (12.0-15.0) g/dL Hct 22.2 L (36.0-48.0) % MCV 99 H (80-98) fL MCH 33 H (27-31) pg MCHC 34 (32-36) % Plt Count 191 (150-400) K/uL Neut % (Auto) 78.0 H (36-66) % Lymph % (Auto) 9.2 L (24-44) % [place] % (Auto) 12.4 H (2-6) % Eos % (Auto) 0.3 L (2-4) % Baso % (Auto) 0.1 (0-1) % Sodium 130 L (140-148) mmol/L Potassium 4.8 (3.6-5.2) mmol/L Chloride 101 (100-108) mmol/L Carbon Dioxide 24 (21-32) mmol/L Anion Gap 9.8 (5.0-14.0) mmol/L BUN 18 D (7-18) mg/dL Creatinine 0.9 D (0.6-1.0) mg/dL Est Cr Clr Drug Dosing 42.61 mL/min Estimated GFR (MDRD) > 60 (>60) Glucose 130 H (74-106) mg/dL Calcium 7.3 L D (8.5-10.1) mg/dL POC WB Ioniz Calcium (1.12-1.32) mmol/L Blood Type Gel Antibody Screen Crossmatch Med Orders - Current: Current Medications Acetaminophen (Acetaminophen 325 Mg Tab) 650 mg PO Q4H PRN PRN Reason: Pain (Mild 1-3)/fever Last Admin: 10/20/20 05:09 Dose: 650 mg Documented by: Albuterol (Albuterol 0.083% 2.5 Mg/3 Ml Neb Soln) 2.5 mg NEB Q4H PRN PRN Reason: Shortness Of Breath/wheezing Last Admin: 10/21/20 21:02 Dose: 2.5 mg Documented by: Atorvastatin Calcium (Atorvastatin 20 Mg Tab) 20 mg PO DAILY [facility] Last Admin: 10/22/20 10:51 Dose: 20 mg Documented by: Carvedilol (Carvedilol 12.5 Mg Tab) 25 mg PO BID [facility] Last Admin: 10/22/20 10:52 Dose: Not Given Documented by: Citalopram Hydrobromide (Citalopram 10 Mg Tab) 10 mg PO BEDTIME [facility] Last Admin: 10/21/20 23:15 Dose: 10 mg Documented by: Docusate Sodium (Docusate Sodium 100 Mg Cap) 100 mg PO BID [facility] Last Admin: 10/22/20 10:52 Dose: 100 mg Documented by: Enoxaparin Sodium (Enoxaparin 30 Mg/0.3 Ml Syringe) 30 mg SUBCUT Q24H [facility] Last Admin: 10/22/20 10:50 Dose: 30 mg Documented by: Hydroxychloroquine Sulfate (Hydroxychloroquine 200 Mg Tab) 200 mg PO BID [facility] Last Admin: 10/22/20 10:51 Dose: 200 mg Documented by: Sodium Chloride (Normal Saline) 1,000 mls @ 125 mls/hr IV ASDIRECTED [facility] Last Admin: 10/22/20 04:47 Dose: 125 mls/hr Documented by: Norepinephrine Bitartrate 4 mg (/ Dextrose/Water) 250 mls @ 7.5 mls/hr IV TITRATE [facility]; Protocol Last Titration: 10/22/20 14:15 Dose: 11 mcg/min, 41.25 mls/hr Documented by: Levothyroxine Sodium (Levothyroxine 88 Mcg Tab) 88 mcg PO DAILY@0730 [facility] Last Admin: 10/22/20 07:41 Dose: 88 mcg Documented by: Lisinopril (Lisinopril 20 Mg Tab) 20 mg PO BID [facility] Last Admin: 10/22/20 10:24 Dose: Not Given Documented by: Morphine Sulfate (Morphine 2 Mg/Ml Syringe) 2 mg IVPUSH Q2H PRN PRN Reason: Pain (severe 7-10) Last Admin: 10/21/20 12:46 Dose: 1 mg Documented by: Multivitamins/Minerals (Multivitamins With Iron/Calcium/Folic Acid/Minerals Tab) 1 tab PO DAILY [facility] Last Admin: 10/22/20 10:51 Dose: 1 tab Documented by: Ondansetron HCl (Ondansetron 4 Mg Tab.Dis) 4 mg PO Q6H PRN PRN Reason: Nausea able to take PO Oxycodone HCl (Oxycodone 5 Mg Tab) 10 mg PO Q4H PRN PRN Reason: Pain (moderate 4-6) Last Admin: 10/22/20 12:54 Dose: 10 mg Documented by: Pantoprazole Sodium (Pantoprazole 40 Mg Vial) 40 mg IV BEDTIME [facility] Last Admin: 10/21/20 21:01 Dose: 40 mg Documented by: Sulfasalazine (Sulfasalazine 500 Mg Tab) 1,000 mg PO BID [facility] Last Admin: 10/22/20 10:50 Dose: 1,000 mg Documented by: Discontinued Medications Amlodipine Besylate (Amlodipine 5 Mg Tab) 5 mg PO DAILY [facility] Last Admin: 10/21/20 10:04 Dose: Not Given Documented by: Cefazolin Sodium (Cefazolin 1 Gm Vial) Confirm Administered Dose 1 gm .ROUTE .STK-MED ONE Stop: 10/20/20 21:35 Last Admin: 10/20/20 21:50 Dose: Not Given Documented by: Chlorthalidone (Chlorthalidone 25 Mg Tab) 25 mg PO DAILY [facility] Last Admin: 10/21/20 10:04 Dose: Not Given Documented by: Citalopram Hydrobromide (Citalopram 10 Mg Tab) 10 mg PO DAILY [facility] Docusate Sodium (Docusate Sodium 100 Mg Cap) 100 mg PO BID PRN PRN Reason: Constipation Last Admin: 10/19/20 21:25 Dose: 100 mg Documented by: Doxazosin Mesylate (Doxazosin 4 Mg Tab) 2 mg PO BID [facility] Last Admin: 10/21/20 10:03 Dose: Not Given Documented by: Ephedrine Sulfate (Ephedrine 50 Mg/Ml Sdv) Confirm Administered Dose 50 mg .ROUTE .STK-MED ONE Stop: 10/20/20 16:29 Fentanyl (Fentanyl 100 Mcg/2 Ml Sdv) Confirm Administered Dose 100 mcg .ROUTE .STK-MED ONE Stop: 10/20/20 10:20 Hydromorphone HCl (Hydromorphone 1 Mg/Ml Syringe) 1 mg IVPUSH ONETIME ONE Stop: 10/19/20 16:58 Last Admin: 10/19/20 17:01 Dose: 1 mg Documented by: Hydromorphone HCl (Hydromorphone 0.5 Mg/0.5 Ml Syringe) 0.5 mg IVPUSH ONETIME ONE Stop: 10/19/20 17:21 Last Admin: 10/19/20 20:59 Dose: Not Given Documented by: Hydromorphone HCl (Hydromorphone 1 Mg/Ml Syringe) 1 mg IVPUSH ONETIME ONE Stop: 10/19/20 18:37 Last Admin: 10/19/20 18:39 Dose: 1 mg Documented by: Cefazolin Sodium/Dextrose 1 gm (/ Premix) 50 mls @ 100 mls/hr IV ONETIME ONE Stop: 10/20/20 16:29 Last Admin: 10/20/20 15:51 Dose: 100 mls/hr Documented by: Potassium Chloride 20 meq/Lidocaine HCl 2 ml/ Sodium Chloride 112 mls @ 56 mls/hr IV Q2H [facility] Stop: 10/20/20 13:59 Last Admin: 10/20/20 12:15 Dose: 56 mls/hr Documented by: Lactated Ringer's (Ringers, Lactated) Confirm Administered Dose 1,000 mls @ as directed .ROUTE .STK-MED ONE Stop: 10/20/20 17:16 Cefazolin Sodium/Dextrose 1 gm (/ Premix) 50 mls @ 100 mls/hr IV Q8HR [facility] Stop: 10/21/20 14:29 Cefazolin Sodium 1 gm/ Sodium (Chloride) 50 mls @ 100 mls/hr IV Q8H [facility] Stop: 10/21/20 14:29 Last Admin: 10/21/20 13:40 Dose: 100 mls/hr Documented by: Potassium Chloride 20 meq/Lidocaine HCl 2 ml/ Sodium Chloride 112 mls @ 50 mls/hr IV Q2H [facility] Stop: 10/21/20 10:44 Last Admin: 10/21/20 09:21 Dose: 50 mls/hr Documented by: Calcium Gluconate 2 gm/ Sodium (Chloride) 120 mls @ 100 mls/hr IV ONETIME ONE Stop: 10/21/20 10:11 Last Admin: 10/21/20 09:21 Dose: 100 mls/hr Documented by: Sodium Chloride (Normal Saline) 500 mls @ 500 mls/hr IV ONETIME ONE Stop: 10/21/20 10:29 Last Admin: 10/21/20 09:27 Dose: 500 mls/hr Documented by: Sodium Chloride (Normal Saline) 1,000 mls @ 500 mls/hr IV .BOLUS ONE Stop: 10/21/20 13:43 Last Admin: 10/21/20 11:56 Dose: 500 mls/hr Documented by: Sodium Chloride (Normal Saline) 500 mls @ 500 mls/hr IV .BOLUS ONE Stop: 10/21/20 17:09 Last Admin: 10/21/20 16:17 Dose: 500 mls/hr Documented by: Ketamine HCl (Ketamine 500 Mg/5 Ml Mdv) 15 mg IV ONETIME ONE Stop: 10/19/20 17:22 Last Admin: 10/19/20 17:25 Dose: 15 mg Documented by: Lisinopril (Lisinopril 10 Mg Tab) Confirm Administered Dose 20 mg .ROUTE .STK- MED ONE Stop: 10/19/20 21:14 Last Admin: 10/19/20 21:27 Dose: Not Given Documented by: Midazolam HCl (Midazolam 1 Mg/Ml 2 Ml Sdv) Confirm Administered Dose 2 mg .ROUTE .STK-MED ONE Stop: 10/20/20 10:20 Ondansetron HCl (Ondansetron 4 Mg/2 Ml Sdv) 4 mg IVPUSH ONETIME ONE Stop: 10/19/20 16:58 Last Admin: 10/19/20 17:00 Dose: 4 mg Documented by: Phenylephrine HCl (Phenylephrine 1% 10 Mg/Ml Sdv) Confirm Administered Dose 10 mg .ROUTE .STK-MED ONE Stop: 10/20/20 16:30 Potassium Chloride (Potassium Chloride 20 Meq Tab.Er) 40 meq PO ONETIME ONE Stop: 10/21/20 08:01 Last Admin: 10/21/20 08:29 Dose: 40 meq Documented by: Potassium Chloride (Potassium Chloride 20 Meq Tab.Er) 40 meq PO ONETIME ONE Stop: 10/21/20 13:01 Last Admin: 10/21/20 13:39 Dose: 40 meq Documented by: Povidone Iodine (Povidone-Iodine 10% Soln 118.25 Ml Bottle) Confirm Administered Dose 1 ml .ROUTE .STK-MED ONE Stop: 10/20/20 08:34 Last Admin: 10/20/20 17:14 Dose: 40 ml Documented by: Propofol (Propofol 200 Mg/20 Ml Sdv) Confirm Administered Dose 200 mg .ROUTE .STK-MED ONE Stop: 10/20/20 10:20 Sugammadex Sodium (Sugammadex Sodium 200 Mg/2 Ml Vial) Confirm Administered Dose 200 mg .ROUTE .STK-MED ONE Stop: 10/20/20 10:22 - Exam Wound/Incisions: Dressing Dry and Intact, Drainage Quality Assessment: Supplemental Oxygen, Urine Catheter, DVT Prophylaxis General: Alert, Oriented, Cooperative Extremities: Leg Pain (left ), Limited Range of Motion, Increased Warmth Skin: Warm, Intact, Other Psy/Mental Status: Alert, Normal Mood Sepsis Event Note - Evaluation Sepsis Screening Result: Sepsis Risk - Focused Exam Vital Signs: Vital Signs Temp Temp Pulse Pulse Resp BP BP 10/22/20 14:00 97.8 F 81 16 137/58 L 10/22/20 13:00 82 24 H 155/49 H 10/22/20 12:00 97.5 F 83 22 H 127/55 L 10/22/20 11:00 79 18 127/47 L 10/22/20 10:52 80 105/51 L 10/22/20 10:24 105/51 L 10/22/20 10:00 85 16 105/51 L 10/22/20 09:25 97.8 F 80 16 145/55 H 10/22/20 09:00 80 21 H 145/55 H 10/22/20 08:43 98.1 F 82 19 132/51 L 10/22/20 08:15 98 F 79 18 130/48 L 10/22/20 08:00 98 F 98 F 79 14 121/55 L 10/22/20 07:45 97.5 F 79 19 132/46 L 10/22/20 07:30 97.7 F 79 19 130/46 L 10/22/20 07:00 80 19 114/37 L 10/22/20 06:11 17 119/42 L 10/22/20 05:00 18 121/42 L 10/22/20 04:00 13 112/41 L 10/22/20 03:00 97.8 F 18 109/41 L Pulse Ox 10/22/20 14:00 92 L 10/22/20 13:00 94 L 10/22/20 12:00 94 L 10/22/20 11:00 95 10/22/20 10:52 10/22/20 10:24 10/22/20 10:00 91 L 10/22/20 09:25 98 10/22/20 09:00 98 10/22/20 08:43 97 10/22/20 08:15 97 10/22/20 08:00 97 10/22/20 07:45 96 10/22/20 07:30 10/22/20 07:00 95 10/22/20 06:11 98 10/22/20 05:00 93 L 10/22/20 04:00 92 L 10/22/20 03:00 94 L - Problem List & Annotations (1) History of hemiarthroplasty of left hip SNOMED Code(s): 486451651 Code(s): Z96.642 - PRESENCE OF LEFT ARTIFICIAL HIP JOINT Status: Acute Current Visit: Yes (2) Postoperative anemia SNOMED Code(s): 428235539, 707916223 Code(s): D64.9 - ANEMIA, UNSPECIFIED Status: Acute Current Visit: Yes - Problem List Review Problem List Initiated/Reviewed/Updated: Yes - My Orders Last 24 Hours: Active Orders 24 hr Category Date Time Status Patient Status [ADT] Routine ADT 10/21/20 16:28 Active Norepinephrine [Levophed] 4 mg Med 10/21/20 16:15 Active Dextrose 5% in Water 246 ml IV TITRATE Transfuse Red Blood Cells [COMM] Routine Oth 10/22/20 06:05 Ordered Medication Orders Acetaminophen (Acetaminophen 325 Mg Tab) 650 mg PO Q4H PRN PRN Reason: Pain (Mild 1-3)/fever Last Admin: 10/20/20 05:09 Dose: 650 mg Documented by: JEFERSON Albuterol (Albuterol 0.083% 2.5 Mg/3 Ml Neb Soln) 2.5 mg NEB Q4H PRN PRN Reason: Shortness Of Breath/wheezing Last Admin: 10/21/20 21:02 Dose: 2.5 mg Documented by: Admin: 10/20/20 20:40 Dose: 2.5 mg Documented by: JEFERSON Atorvastatin Calcium (Atorvastatin 20 Mg Tab) 20 mg PO DAILY [facility] Last Admin: 10/22/20 10:51 Dose: 20 mg Documented by: Admin: 10/21/20 08:29 Dose: 20 mg Documented by: Admin: 10/20/20 08:26 Dose: 20 mg Documented by: NANNETTE Carvedilol (Carvedilol 12.5 Mg Tab) 25 mg PO BID [facility] Last Admin: 10/22/20 10:52 Dose: Not Given Documented by: Admin: 10/21/20 21:40 Dose: Not Given Documented by: Admin: 10/21/20 10:04 Dose: Not Given Documented by: Admin: 10/20/20 20:42 Dose: 25 mg Documented by: Admin: 10/20/20 08:22 Dose: 25 mg Documented by: Admin: 10/19/20 21:23 Dose: 25 mg Documented by: JEFERSON Citalopram Hydrobromide (Citalopram 10 Mg Tab) 10 mg PO BEDTIME [facility] Last Admin: 10/21/20 23:15 Dose: 10 mg Documented by: Admin: 10/20/20 20:43 Dose: 10 mg Documented by: Admin: 10/19/20 22:01 Dose: 10 mg Documented by: JEFERSON Docusate Sodium (Docusate Sodium 100 Mg Cap) 100 mg PO BID [facility] Last Admin: 10/22/20 10:52 Dose: 100 mg Documented by: Admin: 10/21/20 23:15 Dose: 100 mg Documented by: Admin: 10/21/20 08:29 Dose: 100 mg Documented by: Admin: 10/20/20 20:43 Dose: 100 mg Documented by: JEFERSON Enoxaparin Sodium (Enoxaparin 30 Mg/0.3 Ml Syringe) 30 mg SUBCUT Q24H [facility] Last Admin: 10/22/20 10:50 Dose: 30 mg Documented by: Admin: 10/21/20 08:30 Dose: 30 mg Documented by: KIMBERLY Hydroxychloroquine Sulfate (Hydroxychloroquine 200 Mg Tab) 200 mg PO BID [facility] Last Admin: 10/22/20 10:51 Dose: 200 mg Documented by: Admin: 10/21/20 23:15 Dose: 200 mg Documented by: Admin: 10/21/20 08:29 Dose: 200 mg Documented by: Admin: 10/20/20 20:43 Dose: 200 mg Documented by: Admin: 10/20/20 08:21 Dose: 200 mg Documented by: Admin: 10/19/20 21:24 Dose: 200 mg Documented by: EJFERSON Sodium Chloride (Normal Saline) 1,000 mls @ 125 mls/hr IV ASDIRECTED [facility] Last Admin: 10/22/20 04:47 Dose: 125 mls/hr Documented by: Infusion: 10/22/20 04:47 Dose: 125 mls/hr Documented by: Admin: 10/21/20 20:57 Dose: 125 mls/hr Documented by: Infusion: 10/21/20 18:47 Dose: 125 mls/hr Documented by: Admin: 10/21/20 10:47 Dose: 125 mls/hr Documented by: Infusion: 10/21/20 10:47 Dose: 125 mls/hr Documented by: Admin: 10/21/20 03:28 Dose: 125 mls/hr Documented by: Infusion: 10/21/20 02:46 Dose: 125 mls/hr Documented by: Admin: 10/20/20 18:46 Dose: 125 mls/hr Documented by: Infusion: 10/20/20 11:25 Dose: 125 mls/hr Documented by: Admin: 10/20/20 03:25 Dose: 125 mls/hr Documented by: Infusion: 10/20/20 03:25 Dose: 125 mls/hr Documented by: Admin: 10/19/20 20:12 Dose: 125 mls/hr Documented by: JEFERSON Norepinephrine Bitartrate 4 mg (/ Dextrose/Water) 250 mls @ 7.5 mls/hr IV TITRATE [facility]; Protocol Last Titration: 10/22/20 14:15 Dose: 11 mcg/min, 41.25 mls/hr Documented by: Admin: 10/22/20 10:48 Dose: 12 mcg/min, 45 mls/hr Documented by: Titration: 10/22/20 10:48 Dose: 12 mcg/min, 45 mls/hr Documented by: Admin: 10/22/20 05:31 Dose: 12 mcg/min, 45 mls/hr Documented by: Titration: 10/22/20 05:31 Dose: 12 mcg/min, 45 mls/hr Documented by: Admin: 10/22/20 00:05 Dose: 12 mcg/min, 45 mls/hr Documented by: Titration: 10/22/20 00:05 Dose: 12 mcg/min, 45 mls/hr Documented by: Titration: 10/21/20 20:56 Dose: 12 mcg/min, 45 mls/hr Documented by: Titration: 10/21/20 20:22 Dose: 11 mcg/min, 41.25 mls/hr Documented by: Titration: 10/21/20 20:04 Dose: 10 mcg/min, 37.5 mls/hr Documented by: Titration: 10/21/20 19:50 Dose: 9 mcg/min, 33.75 mls/hr Documented by: Titration: 10/21/20 19:34 Dose: 8 mcg/min, 30 mls/hr Documented by: Titration: 10/21/20 19:27 Dose: 7 mcg/min, 26.25 mls/hr Documented by: Titration: 10/21/20 19:16 Dose: 6 mcg/min, 22.5 mls/hr Documented by: Titration: 10/21/20 18:40 Dose: 5 mcg/min, 18.75 mls/hr Documented by: Titration: 10/21/20 18:06 Dose: 4 mcg/min, 15 mls/hr Documented by: Titration: 10/21/20 17:17 Dose: 3 mcg/min, 11.25 mls/hr Documented by: Admin: 10/21/20 16:21 Dose: 2 mcg/min, 7.5 mls/hr Documented by: KIMBERLY Levothyroxine Sodium (Levothyroxine 88 Mcg Tab) 88 mcg PO DAILY@0730 [facility] Admin: 10/22/20 07:41 Dose: 88 mcg Documented by: Admin: 10/21/20 07:31 Dose: 88 mcg Documented by: Admin: 10/20/20 08:32 Dose: 88 mcg Documented by: NANNETTE Lisinopril (Lisinopril 20 Mg Tab) 20 mg PO BID [facility] Admin: 10/22/20 10:24 Dose: Not Given Documented by: Admin: 10/21/20 21:41 Dose: Not Given Documented by: Admin: 10/21/20 10:04 Dose: Not Given Documented by: Admin: 10/20/20 20:42 Dose: 20 mg Documented by: Admin: 10/20/20 08:28 Dose: 20 mg Documented by: Admin: 10/19/20 21:24 Dose: 20 mg Documented by: JEFERSON Morphine Sulfate (Morphine 2 Mg/Ml Syringe) 2 mg IVPUSH Q2H PRN PRN Reason: Pain (severe 7-10) Last Admin: 10/21/20 12:46 Dose: 1 mg Documented by: Admin: 10/21/20 03:28 Dose: 2 mg Documented by: Admin: 10/20/20 18:51 Dose: 2 mg Documented by: Admin: 10/20/20 15:49 Dose: 2 mg Documented by: Admin: 10/20/20 13:32 Dose: 2 mg Documented by: Admin: 10/20/20 11:35 Dose: 2 mg Documented by: Admin: 10/20/20 07:53 Dose: 2 mg Documented by: Admin: 10/20/20 03:25 Dose: 2 mg Documented by: JEFERSON Multivitamins/Minerals (Multivitamins With Iron/Calcium/Folic Acid/Minerals Tab) 1 tab PO DAILY [facility] Admin: 10/22/20 10:51 Dose: 1 tab Documented by: Admin: 10/21/20 08:27 Dose: 1 tab Documented by: Admin: 10/20/20 08:28 Dose: 1 tab Documented by: NANNETTE Ondansetron HCl (Ondansetron 4 Mg Tab.Dis) 4 mg PO Q6H PRN PRN Reason: Nausea able to take PO Oxycodone HCl (Oxycodone 5 Mg Tab) 10 mg PO Q4H PRN PRN Reason: Pain (moderate 4-6) Last Admin: 10/22/20 12:54 Dose: 10 mg Documented by: Admin: 10/22/20 06:23 Dose: 10 mg Documented by: Admin: 10/21/20 16:17 Dose: 10 mg Documented by: Admin: 10/21/20 11:29 Dose: 10 mg Documented by: Admin: 10/21/20 07:31 Dose: 10 mg Documented by: Admin: 10/20/20 08:57 Dose: 10 mg Documented by: Admin: 10/20/20 05:09 Dose: 10 mg Documented by: JEFERSON Pantoprazole Sodium (Pantoprazole 40 Mg Vial) 40 mg IV BEDTIME [facility] Last Admin: 10/21/20 21:01 Dose: 40 mg Documented by: Admin: 10/20/20 20:40 Dose: 40 mg Documented by: Admin: 10/19/20 21:25 Dose: 40 mg Documented by: JEFERSON Sulfasalazine (Sulfasalazine 500 Mg Tab) 1,000 mg PO BID [facility] Last Admin: 10/22/20 10:50 Dose: 1,000 mg Documented by: Admin: 10/21/20 23:15 Dose: 1,000 mg Documented by: Admin: 10/21/20 08:27 Dose: 1,000 mg Documented by: Admin: 10/20/20 20:42 Dose: 1,000 mg Documented by: Admin: 10/20/20 08:24 Dose: 1,000 mg Documented by: Admin: 10/19/20 21:25 Dose: 1,000 mg Documented by: JEFERSON - Assessment Assessment (Free Text/Narrative):: Patient is a pleasant 80 y/o female, s/p left hip hemiarthroplasty, POD#2. Vitals, labs, and imaging reviewed from the past 24 hours. White count elevated, HgB declined. Did receive 1 unit of pRBCs this morning + remains on norepinephrine drip; BP seems to be improving this afternoon. Remains on 2.5 L O2 to maintain O2 saturations >90%. Minimal appetite at this time. No nausea or emesis. Patient endorsed persistent pain in L hip. Has transferred from bed to chair with FWW, but has not ambulated further than this. García catheter remains in place due to limited ambulation abilities at this time. Participated in PT and OT today, participation ability limited due to pain, weakness, and dyspnea on exertion. L hip dressing changed this afternoon. Incision intact, there was a clot along inferior aspect of incision with minimal serosanguineous drainage. New dressing applied. Modest edema through left hip into thigh and knee. Plan: * Hospitalist to kindly continue medical management of this patient * Patient to participate in daily PT and OT as vitals allow. May WBAT on L LE * Continue with current pain regiment * Continue with 30 mg Lovenox qd for chemical DVT/VTE prophylaxis. Bilateral SCDs on LE for mechanical prophylaxis * May discontinue García catheter as ambulation abilities improve * Anticipate discharge to SNF when patient is medically stable and ambulation abilities improve
[2020-10-22] MEDS ORDERED: Sodium Chloride 0.9% 1,000 ML IV SCH (16:15)
--- NOTE | 2020-10-22 16:15 | PCM.PN ---
- General Info Date of Service: 10/22/20 Subjective Update: Ms. Winter has continued to experience hypotension, likely related to third spacing and possibly some ongoing bleeding. Hemoglobin did drop and she has received transfusion of 1 unit of red blood cells. Continues to require use of norepinephrine to maintain adequate blood pressure. Appetite remains somewhat poor and she has significant pain with standing. Functional Status: Denies: Tolerating Diet, Ambulating - Review of Systems General: Reports: Weakness, Fatigue. Denies: Fever, Chills Pulmonary: Reports: No Symptoms Cardiovascular: Reports: No Symptoms Gastrointestinal: Reports: No Symptoms Genitourinary: Reports: No Symptoms Musculoskeletal: Reports: Joint Pain - Patient Data Vitals - Most Recent: Last Vital Signs Temp 97.8 F 10/22/20 14:00 Pulse 82 10/22/20 15:00 Resp 16 10/22/20 15:00 BP 111/43 L 10/22/20 15:00 Pulse Ox 98 10/22/20 15:00 Weight - Most Recent: 177 lb 14.609 oz I&O - Last 24 Hours: Intake & Output 10/22/20 10/22/20 10/22/20 06:59 14:59 22:59 Intake Total 2616 390 Output Total 23* 315 Balance 2392 75 Lab Results Last 24 Hours: Laboratory Results - last 24 hr 10/21/20 10/21/20 10/22/20 Range/Units 17:02 17:02 05:14 WBC (4.5-11.0) K/uL RBC (3.30-5.50) M/uL Hgb (12.0-15.0) g/dL Hct (36.0-48.0) % MCV (80-98) fL MCH (27-31) pg MCHC (32-36) % Plt Count (150-400) K/uL Neut % (Auto) (36-66) % Lymph % (Auto) (24-44) % Sanborn % (Auto) (2-6) % Eos % (Auto) (2-4) % Baso % (Auto) (0-1) % Sodium (140-148) mmol/L Potassium 5.0 (3.6-5.2) mmol/L Chloride (100-108) mmol/L Carbon Dioxide (21-32) mmol/L Anion Gap (5.0-14.0) mmol/L BUN (7-18) mg/dL Creatinine (0.6-1.0) mg/dL Est Cr Clr Drug Dosing mL/min Estimated GFR (MDRD) (>60) Glucose (74-106) mg/dL Calcium (8.5-10.1) mg/dL POC WB Ioniz Calcium 1.16 (1.12-1.32) mmol/L Blood Type A POSITIVE Gel Antibody Screen Negative Crossmatch See Detail 10/22/20 10/22/20 Range/Units 05:28 05:28 WBC 15.6 H (4.5-11.0) K/uL RBC 2.25 L (3.30-5.50) M/uL Hgb 7.5 L (12.0-15.0) g/dL Hct 22.2 L (36.0-48.0) % MCV 99 H (80-98) fL MCH 33 H (27-31) pg MCHC 34 (32-36) % Plt Count 191 (150-400) K/uL Neut % (Auto) 78.0 H (36-66) % Lymph % (Auto) 9.2 L (24-44) % Sanborn % (Auto) 12.4 H (2-6) % Eos % (Auto) 0.3 L (2-4) % Baso % (Auto) 0.1 (0-1) % Sodium 130 L (140-148) mmol/L Potassium 4.8 (3.6-5.2) mmol/L Chloride 101 (100-108) mmol/L Carbon Dioxide 24 (21-32) mmol/L Anion Gap 9.8 (5.0-14.0) mmol/L BUN 18 D (7-18) mg/dL Creatinine 0.9 D (0.6-1.0) mg/dL Est Cr Clr Drug Dosing 42.61 mL/min Estimated GFR (MDRD) > 60 (>60) Glucose 130 H (74-106) mg/dL Calcium 7.3 L D (8.5-10.1) mg/dL POC WB Ioniz Calcium (1.12-1.32) mmol/L Blood Type Gel Antibody Screen Crossmatch Med Orders - Current: Current Medications Acetaminophen (Acetaminophen 325 Mg Tab) 650 mg PO Q4H PRN PRN Reason: Pain (Mild 1-3)/fever Last Admin: 10/20/20 05:09 Dose: 650 mg Documented by: Albuterol (Albuterol 0.083% 2.5 Mg/3 Ml Neb Soln) 2.5 mg NEB Q4H PRN PRN Reason: Shortness Of Breath/wheezing Last Admin: 10/21/20 21:02 Dose: 2.5 mg Documented by: Atorvastatin Calcium (Atorvastatin 20 Mg Tab) 20 mg PO DAILY [facility] Last Admin: 10/22/20 10:51 Dose: 20 mg Documented by: Carvedilol (Carvedilol 12.5 Mg Tab) 25 mg PO BID [facility] Last Admin: 10/22/20 10:52 Dose: Not Given Documented by: Citalopram Hydrobromide (Citalopram 10 Mg Tab) 10 mg PO BEDTIME [facility] Last Admin: 10/21/20 23:15 Dose: 10 mg Documented by: Docusate Sodium (Docusate Sodium 100 Mg Cap) 100 mg PO BID [facility] Last Admin: 10/22/20 10:52 Dose: 100 mg Documented by: Enoxaparin Sodium (Enoxaparin 30 Mg/0.3 Ml Syringe) 30 mg SUBCUT Q24H [facility] Last Admin: 10/22/20 10:50 Dose: 30 mg Documented by: Hydroxychloroquine Sulfate (Hydroxychloroquine 200 Mg Tab) 200 mg PO BID [facility] Last Admin: 10/22/20 10:51 Dose: 200 mg Documented by: Norepinephrine Bitartrate 4 mg (/ Dextrose/Water) 250 mls @ 7.5 mls/hr IV TITRATE [facility]; Protocol Last Titration: 10/22/20 14:57 Dose: 9 mcg/min, 33.75 mls/hr Documented by: Sodium Chloride (Normal Saline) 1,000 mls @ 50 mls/hr IV ASDIRECTED [facility] Levothyroxine Sodium (Levothyroxine 88 Mcg Tab) 88 mcg PO DAILY@0730 [facility] Last Admin: 10/22/20 07:41 Dose: 88 mcg Documented by: Lisinopril (Lisinopril 20 Mg Tab) 20 mg PO BID [facility] Last Admin: 10/22/20 10:24 Dose: Not Given Documented by: Morphine Sulfate (Morphine 2 Mg/Ml Syringe) 2 mg IVPUSH Q2H PRN PRN Reason: Pain (severe 7-10) Last Admin: 10/21/20 12:46 Dose: 1 mg Documented by: Multivitamins/Minerals (Multivitamins With Iron/Calcium/Folic Acid/Minerals Tab) 1 tab PO DAILY [facility] Last Admin: 10/22/20 10:51 Dose: 1 tab Documented by: Ondansetron HCl (Ondansetron 4 Mg Tab.Dis) 4 mg PO Q6H PRN PRN Reason: Nausea able to take PO Oxycodone HCl (Oxycodone 5 Mg Tab) 10 mg PO Q4H PRN PRN Reason: Pain (moderate 4-6) Last Admin: 10/22/20 12:54 Dose: 10 mg Documented by: Pantoprazole Sodium (Pantoprazole 40 Mg Vial) 40 mg IV BEDTIME [facility] Last Admin: 10/21/20 21:01 Dose: 40 mg Documented by: Senna/Docusate Sodium (Docusate Sodium/Sennosides 50-8.6 Mg Tab) 2 tab PO BID [facility] Sulfasalazine (Sulfasalazine 500 Mg Tab) 1,000 mg PO BID [facility] Last Admin: 10/22/20 10:50 Dose: 1,000 mg Documented by: Discontinued Medications Amlodipine Besylate (Amlodipine 5 Mg Tab) 5 mg PO DAILY [facility] Last Admin: 10/21/20 10:04 Dose: Not Given Documented by: Cefazolin Sodium (Cefazolin 1 Gm Vial) Confirm Administered Dose 1 gm .ROUTE .STK-MED ONE Stop: 10/20/20 21:35 Last Admin: 10/20/20 21:50 Dose: Not Given Documented by: Chlorthalidone (Chlorthalidone 25 Mg Tab) 25 mg PO DAILY [facility] Last Admin: 10/21/20 10:04 Dose: Not Given Documented by: Citalopram Hydrobromide (Citalopram 10 Mg Tab) 10 mg PO DAILY [facility] Docusate Sodium (Docusate Sodium 100 Mg Cap) 100 mg PO BID PRN PRN Reason: Constipation Last Admin: 10/19/20 21:25 Dose: 100 mg Documented by: Doxazosin Mesylate (Doxazosin 4 Mg Tab) 2 mg PO BID [facility] Last Admin: 10/21/20 10:03 Dose: Not Given Documented by: Ephedrine Sulfate (Ephedrine 50 Mg/Ml Sdv) Confirm Administered Dose 50 mg .ROUTE .STK-MED ONE Stop: 10/20/20 16:29 Fentanyl (Fentanyl 100 Mcg/2 Ml Sdv) Confirm Administered Dose 100 mcg .ROUTE .STK-MED ONE Stop: 10/20/20 10:20 Hydromorphone HCl (Hydromorphone 1 Mg/Ml Syringe) 1 mg IVPUSH ONETIME ONE Stop: 10/19/20 16:58 Last Admin: 10/19/20 17:01 Dose: 1 mg Documented by: Hydromorphone HCl (Hydromorphone 0.5 Mg/0.5 Ml Syringe) 0.5 mg IVPUSH ONETIME ONE Stop: 10/19/20 17:21 Last Admin: 10/19/20 20:59 Dose: Not Given Documented by: Hydromorphone HCl (Hydromorphone 1 Mg/Ml Syringe) 1 mg IVPUSH ONETIME ONE Stop: 10/19/20 18:37 Last Admin: 10/19/20 18:39 Dose: 1 mg Documented by: Sodium Chloride (Normal Saline) 1,000 mls @ 125 mls/hr IV ASDIRECTED [facility] Last Admin: 10/22/20 04:47 Dose: 125 mls/hr Documented by: Cefazolin Sodium/Dextrose 1 gm (/ Premix) 50 mls @ 100 mls/hr IV ONETIME ONE Stop: 10/20/20 16:29 Last Admin: 10/20/20 15:51 Dose: 100 mls/hr Documented by: Potassium Chloride 20 meq/Lidocaine HCl 2 ml/ Sodium Chloride 112 mls @ 56 mls/hr IV Q2H [facility] Stop: 10/20/20 13:59 Last Admin: 10/20/20 12:15 Dose: 56 mls/hr Documented by: Lactated Ringer's (Ringers, Lactated) Confirm Administered Dose 1,000 mls @ as directed .ROUTE .STK-MED ONE Stop: 10/20/20 17:16 Cefazolin Sodium/Dextrose 1 gm (/ Premix) 50 mls @ 100 mls/hr IV Q8HR [facility] Stop: 10/21/20 14:29 Cefazolin Sodium 1 gm/ Sodium (Chloride) 50 mls @ 100 mls/hr IV Q8H [facility] Stop: 10/21/20 14:29 Last Admin: 10/21/20 13:40 Dose: 100 mls/hr Documented by: Potassium Chloride 20 meq/Lidocaine HCl 2 ml/ Sodium Chloride 112 mls @ 50 mls/hr IV Q2H [facility] Stop: 10/21/20 10:44 Last Admin: 10/21/20 09:21 Dose: 50 mls/hr Documented by: Calcium Gluconate 2 gm/ Sodium (Chloride) 120 mls @ 100 mls/hr IV ONETIME ONE Stop: 10/21/20 10:11 Last Admin: 10/21/20 09:21 Dose: 100 mls/hr Documented by: Sodium Chloride (Normal Saline) 500 mls @ 500 mls/hr IV ONETIME ONE Stop: 10/21/20 10:29 Last Admin: 10/21/20 09:27 Dose: 500 mls/hr Documented by: Sodium Chloride (Normal Saline) 1,000 mls @ 500 mls/hr IV .BOLUS ONE Stop: 10/21/20 13:43 Last Admin: 10/21/20 11:56 Dose: 500 mls/hr Documented by: Sodium Chloride (Normal Saline) 500 mls @ 500 mls/hr IV .BOLUS ONE Stop: 10/21/20 17:09 Last Admin: 10/21/20 16:17 Dose: 500 mls/hr Documented by: Ketamine HCl (Ketamine 500 Mg/5 Ml Mdv) 15 mg IV ONETIME ONE Stop: 10/19/20 17:22 Last Admin: 10/19/20 17:25 Dose: 15 mg Documented by: Lisinopril (Lisinopril 10 Mg Tab) Confirm Administered Dose 20 mg .ROUTE .STK- MED ONE Stop: 10/19/20 21:14 Last Admin: 10/19/20 21:27 Dose: Not Given Documented by: Midazolam HCl (Midazolam 1 Mg/Ml 2 Ml Sdv) Confirm Administered Dose 2 mg .ROUTE .STK-MED ONE Stop: 10/20/20 10:20 Ondansetron HCl (Ondansetron 4 Mg/2 Ml Sdv) 4 mg IVPUSH ONETIME ONE Stop: 10/19/20 16:58 Last Admin: 10/19/20 17:00 Dose: 4 mg Documented by: Phenylephrine HCl (Phenylephrine 1% 10 Mg/Ml Sdv) Confirm Administered Dose 10 mg .ROUTE .STK-MED ONE Stop: 10/20/20 16:30 Potassium Chloride (Potassium Chloride 20 Meq Tab.Er) 40 meq PO ONETIME ONE Stop: 10/21/20 08:01 Last Admin: 10/21/20 08:29 Dose: 40 meq Documented by: Potassium Chloride (Potassium Chloride 20 Meq Tab.Er) 40 meq PO ONETIME ONE Stop: 10/21/20 13:01 Last Admin: 10/21/20 13:39 Dose: 40 meq Documented by: Povidone Iodine (Povidone-Iodine 10% Soln 118.25 Ml Bottle) Confirm Administered Dose 1 ml .ROUTE .STK-MED ONE Stop: 10/20/20 08:34 Last Admin: 10/20/20 17:14 Dose: 40 ml Documented by: Propofol (Propofol 200 Mg/20 Ml Sdv) Confirm Administered Dose 200 mg .ROUTE .STK-MED ONE Stop: 10/20/20 10:20 Sugammadex Sodium (Sugammadex Sodium 200 Mg/2 Ml Vial) Confirm Administered Dose 200 mg .ROUTE .STK-MED ONE Stop: 10/20/20 10:22 - Exam Quality Assessment: Urine Catheter, DVT Prophylaxis Urinary Catheter Total Time: 1Days 6Hours General: Alert, Oriented, Cooperative, Moderate Distress Lungs: Clear to Auscultation, Normal Respiratory Effort Cardiovascular: Regular Rate, Regular Rhythm, No Murmurs GI/Abdominal Exam: Soft, Non-Tender, No Organomegaly, No Distention Extremities: Non-Tender, Pedal Edema, Leg Pain - Patient Data Lab Results Last 24 hrs: Laboratory Results - last 24 hr 10/21/20 10/21/20 10/22/20 Range/Units 17:02 17:02 05:14 WBC (4.5-11.0) K/uL RBC (3.30-5.50) M/uL Hgb (12.0-15.0) g/dL Hct (36.0-48.0) % MCV (80-98) fL MCH (27-31) pg MCHC (32-36) % Plt Count (150-400) K/uL Neut % (Auto) (36-66) % Lymph % (Auto) (24-44) % Sanborn % (Auto) (2-6) % Eos % (Auto) (2-4) % Baso % (Auto) (0-1) % Sodium (140-148) mmol/L Potassium 5.0 (3.6-5.2) mmol/L Chloride (100-108) mmol/L Carbon Dioxide (21-32) mmol/L Anion Gap (5.0-14.0) mmol/L BUN (7-18) mg/dL Creatinine (0.6-1.0) mg/dL Est Cr Clr Drug Dosing mL/min Estimated GFR (MDRD) (>60) Glucose (74-106) mg/dL Calcium (8.5-10.1) mg/dL POC WB Ioniz Calcium 1.16 (1.12-1.32) mmol/L Blood Type A POSITIVE Gel Antibody Screen Negative Crossmatch See Detail 10/22/20 10/22/20 Range/Units 05:28 05:28 WBC 15.6 H (4.5-11.0) K/uL RBC 2.25 L (3.30-5.50) M/uL Hgb 7.5 L (12.0-15.0) g/dL Hct 22.2 L (36.0-48.0) % MCV 99 H (80-98) fL MCH 33 H (27-31) pg MCHC 34 (32-36) % Plt Count 191 (150-400) K/uL Neut % (Auto) 78.0 H (36-66) % Lymph % (Auto) 9.2 L (24-44) % Sanborn % (Auto) 12.4 H (2-6) % Eos % (Auto) 0.3 L (2-4) % Baso % (Auto) 0.1 (0-1) % Sodium 130 L (140-148) mmol/L Potassium 4.8 (3.6-5.2) mmol/L Chloride 101 (100-108) mmol/L Carbon Dioxide 24 (21-32) mmol/L Anion Gap 9.8 (5.0-14.0) mmol/L BUN 18 D (7-18) mg/dL Creatinine 0.9 D (0.6-1.0) mg/dL Est Cr Clr Drug Dosing 42.61 mL/min Estimated GFR (MDRD) > 60 (>60) Glucose 130 H (74-106) mg/dL Calcium 7.3 L D (8.5-10.1) mg/dL POC WB Ioniz Calcium (1.12-1.32) mmol/L Blood Type Gel Antibody Screen Crossmatch Result Diagrams: 10/22/20 05:28 10/22/20 05:28 Sepsis Event Note - Evaluation Sepsis Screening Result: Sepsis Risk - Focused Exam Vital Signs: Vital Signs Temp Temp Pulse Pulse Resp BP BP 10/22/20 15:00 82 16 111/43 L 10/22/20 14:00 97.8 F 81 16 137/58 L 10/22/20 13:00 82 24 H 155/49 H 10/22/20 12:00 97.5 F 83 22 H 127/55 L 10/22/20 11:00 79 18 127/47 L 10/22/20 10:52 80 105/51 L 10/22/20 10:24 105/51 L 10/22/20 10:00 85 16 105/51 L 10/22/20 09:25 97.8 F 80 16 145/55 H 10/22/20 09:00 80 21 H 145/55 H 10/22/20 08:43 98.1 F 82 19 132/51 L 10/22/20 08:15 98 F 79 18 130/48 L 10/22/20 08:00 98 F 98 F 79 14 121/55 L 10/22/20 07:45 97.5 F 79 19 132/46 L 10/22/20 07:30 97.7 F 79 19 130/46 L 10/22/20 07:00 80 19 114/37 L 10/22/20 06:11 17 119/42 L 10/22/20 05:00 18 121/42 L Pulse Ox 10/22/20 15:00 98 10/22/20 14:00 92 L 10/22/20 13:00 94 L 10/22/20 12:00 94 L 10/22/20 11:00 95 10/22/20 10:52 10/22/20 10:24 10/22/20 10:00 91 L 10/22/20 09:25 98 10/22/20 09:00 98 10/22/20 08:43 97 10/22/20 08:15 97 10/22/20 08:00 97 10/22/20 07:45 96 10/22/20 07:30 10/22/20 07:00 95 10/22/20 06:11 98 10/22/20 05:00 93 L - Problem List Review Problem List Initiated/Reviewed/Updated: Yes - My Orders Last 24 Hours: My Active Orders 10/21/20 16:15 Norepinephrine [Levophed] 4 mg Dextrose 5% in Water 246 ml IV TITRATE 10/21/20 16:28 Patient Status [ADT] Routine 10/22/20 06:05 Transfuse Red Blood Cells [COMM] Routine 10/22/20 16:15 Docusate Sodium/Sennosides [Senna Plus] 2 tab PO BID Sodium Chloride 0.9% [Normal Saline] 1,000 ml IV ASDIRECTED 10/22/20 17:00 HGB [HEMOGLOBIN] [HEME] Stat 10/23/20 05:00 BASIC METABOLIC PANEL,BMP [CHEM] Timed CBC WITH AUTO DIFF [HEME] Timed - Plan Plan:: ASSESSMENT AND PLAN LEFT HIP FRACTURE-status post surgical repair -IV fluids for hydration -Pain and nausea medication as needed -Postoperative care per Dr. Gupta HYPOTENSION-likely secondary to third spacing and possibly ongoing bleeding. Minimal response to IV fluids yesterday and she was started on IV norepinephrine with good results -Continue to monitor in ICU -IV fluid; normal saline 50 cc/h -Norepinephrine IV to maintain MAP of 65 ALCOHOL USE DISORDER-no evidence of significant alcohol withdrawal -[facility] Protocol HYPOTHYROIDISM -continue outpatient medical therapy -Synthyroid 88 mcg daily CHRONIC DIARRHEA -continue outpatient medical therapy -Sulfasalazine 1000 mg bid HYPOKALEMIA-resolved -Recheck potassium level later today and in the a.m. MAINTENANCE ISSUES -DVT prophylaxis; as above -GI prophylaxis - IV Protonic 40 mg daily -García catheter; will be placed because of severe pain with movement -Nutrition; regular diet, n.p.o. after midnight -Nicotine dependence; not required - quit smoking 22 years ago. -consult to PT -consult to OT CODE STATUS-FULL CODE ADMISSION STATUS-patient will be admitted to inpatient status, expect at least a 2 night hospital stay for evaluation and management of problems as outlined above. At the time of this admission I do not reasonably expected evaluation and management of this problem will require more than a 96 hour hospital stay. DISPOSITION-anticipate discharge to long-term PRIMARY CARE PROVIDER-Dr. Kin Campos, [facility], [place], [place]. SURGERY SERVICE- Dr. Gupta, Orthopedic Surgeon HOSPITALIST - Dr. Dumont
[2020-10-22] MEDS: Citalopram 10 MG Tab PO SCH (21:07)
[2020-10-22] MEDS: Pantoprazole 40 MG Vial IV SCH (21:07)
[2020-10-23] MEDS: Norepinephrine 4 MG in Dextrose 5% in Water 246 ML IV SCH ×2 (00:09)
[2020-10-23] MEDS: oxyCODONE 5 MG Tab PO PRN ×3 (07:42→20:34)
[2020-10-23] MEDS: Levothyroxine 88 MCG Tab PO SCH (07:43)
--- NOTE | 2020-10-23 08:39 | PCM.SURGPN ---
- General Info Date of Service: 10/23/20 Date of Surgery/Procedure: 10/20/20 POD#: 3 Post-Op Diagnosis: left femoral neck fracture Functional Status: Reports: Tolerating Diet, Incentive Spirometry - Review of Systems General: Reports: Fatigue HEENT: Reports: No Symptoms Pulmonary: Reports: No Symptoms Cardiovascular: Reports: Dyspnea on Exertion Gastrointestinal: Reports: No Symptoms Genitourinary: Reports: No Symptoms Musculoskeletal: Reports: Leg Pain (left ), Joint Pain (left hip ), Joint Swelling Skin: Reports: No Symptoms Neurological: Reports: No Symptoms - Patient Data Vitals - Most Recent: Last Vital Signs Temp 97.7 F 10/23/20 07:00 Pulse 79 10/23/20 07:00 Resp 15 10/23/20 07:00 BP 133/55 L 10/23/20 07:00 Pulse Ox 96 10/23/20 07:00 Weight - Most Recent: 177 lb 14.609 oz I&O - Last 24 Hours: Intake & Output 10/22/20 10/23/20 10/23/20 22:59 06:59 14:59 Intake Total 1809 1111 Output Total 6 350 5% Balance 174I 761 -5% Lab Results Last 24 Hrs: Laboratory Results - last 24 hr 10/22/20 10/22/20 10/23/20 Range/Units 05:14 17:33 05:25 WBC 12.7 H (4.5-11.0) K/uL RBC 2.63 L (3.30-5.50) M/uL Hgb 8.9 L 8.3 L (12.0-15.0) g/dL Hct 24.6 L (36.0-48.0) % MCV 94 (80-98) fL MCH 32 H (27-31) pg MCHC 34 (32-36) % Plt Count 179 (150-400) K/uL Neut % (Auto) 74.3 H (36-66) % Lymph % (Auto) 10.0 L (24-44) % Hooker % (Auto) 14.4 H (2-6) % Eos % (Auto) 1.2 L (2-4) % Baso % (Auto) 0.1 (0-1) % Sodium (140-148) mmol/L Potassium (3.6-5.2) mmol/L Chloride (100-108) mmol/L Carbon Dioxide (21-32) mmol/L Anion Gap (5.0-14.0) mmol/L BUN (7-18) mg/dL Creatinine (0.6-1.0) mg/dL Est Cr Clr Drug Dosing mL/min Estimated GFR (MDRD) (>60) Glucose (74-106) mg/dL Calcium (8.5-10.1) mg/dL Crossmatch See Detail 10/23/20 Range/Units 05:25 WBC (4.5-11.0) K/uL RBC (3.30-5.50) M/uL Hgb (12.0-15.0) g/dL Hct (36.0-48.0) % MCV (80-98) fL MCH (27-31) pg MCHC (32-36) % Plt Count (150-400) K/uL Neut % (Auto) (36-66) % Lymph % (Auto) (24-44) % Hooker % (Auto) (2-6) % Eos % (Auto) (2-4) % Baso % (Auto) (0-1) % Sodium 131 L (140-148) mmol/L Potassium 4.2 (3.6-5.2) mmol/L Chloride 99 L (100-108) mmol/L Carbon Dioxide 25 (21-32) mmol/L Anion Gap 11.2 (5.0-14.0) mmol/L BUN 13 (7-18) mg/dL Creatinine 0.6 (0.6-1.0) mg/dL Est Cr Clr Drug Dosing 63.92 mL/min Estimated GFR (MDRD) > 60 (>60) Glucose 102 (74-106) mg/dL Calcium 7.4 L (8.5-10.1) mg/dL Crossmatch Med Orders - Current: Current Medications Acetaminophen (Acetaminophen 325 Mg Tab) 650 mg PO Q4H PRN PRN Reason: Pain (Mild 1-3)/fever Last Admin: 10/20/20 05:09 Dose: 650 mg Documented by: Albuterol (Albuterol 0.083% 2.5 Mg/3 Ml Neb Soln) 2.5 mg NEB Q4H PRN PRN Reason: Shortness Of Breath/wheezing Last Admin: 10/21/20 21:02 Dose: 2.5 mg Documented by: Atorvastatin Calcium (Atorvastatin 20 Mg Tab) 20 mg PO DAILY [facility] Last Admin: 10/22/20 10:51 Dose: 20 mg Documented by: Carvedilol (Carvedilol 12.5 Mg Tab) 25 mg PO BID [facility] Last Admin: 10/22/20 21:07 Dose: Not Given Documented by: Citalopram Hydrobromide (Citalopram 10 Mg Tab) 10 mg PO BEDTIME [facility] Last Admin: 10/22/20 21:07 Dose: 10 mg Documented by: Docusate Sodium (Docusate Sodium 100 Mg Cap) 100 mg PO BID [facility] Last Admin: 10/22/20 21:07 Dose: 100 mg Documented by: Enoxaparin Sodium (Enoxaparin 30 Mg/0.3 Ml Syringe) 30 mg SUBCUT Q24H [facility] Last Admin: 10/22/20 10:50 Dose: 30 mg Documented by: Hydroxychloroquine Sulfate (Hydroxychloroquine 200 Mg Tab) 200 mg PO BID [facility] Last Admin: 10/22/20 21:07 Dose: 200 mg Documented by: Norepinephrine Bitartrate 4 mg (/ Dextrose/Water) 250 mls @ 7.5 mls/hr IV TITRATE [facility]; Protocol Last Titration: 10/23/20 05:08 Dose: 0 mcg/min, 0 mls/hr Documented by: Sodium Chloride (Normal Saline) 1,000 mls @ 50 mls/hr IV ASDIRECTED [facility] Last Admin: 10/23/20 01:55 Dose: 50 mls/hr Documented by: Levothyroxine Sodium (Levothyroxine 88 Mcg Tab) 88 mcg PO DAILY@0730 [facility] Last Admin: 10/23/20 07:43 Dose: 88 mcg Documented by: Lisinopril (Lisinopril 20 Mg Tab) 20 mg PO BID [facility] Last Admin: 10/22/20 21:07 Dose: Not Given Documented by: Morphine Sulfate (Morphine 2 Mg/Ml Syringe) 2 mg IVPUSH Q2H PRN PRN Reason: Pain (severe 7-10) Last Admin: 10/21/20 12:46 Dose: 1 mg Documented by: Multivitamins/Minerals (Multivitamins With Iron/Calcium/Folic Acid/Minerals Tab) 1 tab PO DAILY [facility] Last Admin: 10/22/20 10:51 Dose: 1 tab Documented by: Ondansetron HCl (Ondansetron 4 Mg Tab.Dis) 4 mg PO Q6H PRN PRN Reason: Nausea able to take PO Oxycodone HCl (Oxycodone 5 Mg Tab) 10 mg PO Q4H PRN PRN Reason: Pain (moderate 4-6) Last Admin: 10/23/20 07:42 Dose: 10 mg Documented by: Pantoprazole Sodium (Pantoprazole 40 Mg Vial) 40 mg IV BEDTIME [facility] Last Admin: 10/22/20 21:07 Dose: 40 mg Documented by: Senna/Docusate Sodium (Docusate Sodium/Sennosides 50-8.6 Mg Tab) 2 tab PO BID [facility] Last Admin: 10/22/20 21:08 Dose: 2 tab Documented by: Sulfasalazine (Sulfasalazine 500 Mg Tab) 1,000 mg PO BID [facility] Last Admin: 10/22/20 21:12 Dose: 1,000 mg Documented by: Discontinued Medications Amlodipine Besylate (Amlodipine 5 Mg Tab) 5 mg PO DAILY [facility] Last Admin: 10/21/20 10:04 Dose: Not Given Documented by: Cefazolin Sodium (Cefazolin 1 Gm Vial) Confirm Administered Dose 1 gm .ROUTE .STK-MED ONE Stop: 10/20/20 21:35 Last Admin: 10/20/20 21:50 Dose: Not Given Documented by: Chlorthalidone (Chlorthalidone 25 Mg Tab) 25 mg PO DAILY [facility] Last Admin: 10/21/20 10:04 Dose: Not Given Documented by: Citalopram Hydrobromide (Citalopram 10 Mg Tab) 10 mg PO DAILY [facility] Docusate Sodium (Docusate Sodium 100 Mg Cap) 100 mg PO BID PRN PRN Reason: Constipation Last Admin: 10/19/20 21:25 Dose: 100 mg Documented by: Doxazosin Mesylate (Doxazosin 4 Mg Tab) 2 mg PO BID [facility] Last Admin: 10/21/20 10:03 Dose: Not Given Documented by: Ephedrine Sulfate (Ephedrine 50 Mg/Ml Sdv) Confirm Administered Dose 50 mg .ROUTE .STK-MED ONE Stop: 10/20/20 16:29 Fentanyl (Fentanyl 100 Mcg/2 Ml Sdv) Confirm Administered Dose 100 mcg .ROUTE .STK-MED ONE Stop: 10/20/20 10:20 Hydromorphone HCl (Hydromorphone 1 Mg/Ml Syringe) 1 mg IVPUSH ONETIME ONE Stop: 10/19/20 16:58 Last Admin: 10/19/20 17:01 Dose: 1 mg Documented by: Hydromorphone HCl (Hydromorphone 0.5 Mg/0.5 Ml Syringe) 0.5 mg IVPUSH ONETIME ONE Stop: 10/19/20 17:21 Last Admin: 10/19/20 20:59 Dose: Not Given Documented by: Hydromorphone HCl (Hydromorphone 1 Mg/Ml Syringe) 1 mg IVPUSH ONETIME ONE Stop: 10/19/20 18:37 Last Admin: 10/19/20 18:39 Dose: 1 mg Documented by: Sodium Chloride (Normal Saline) 1,000 mls @ 125 mls/hr IV ASDIRECTED [facility] Last Admin: 10/22/20 04:47 Dose: 125 mls/hr Documented by: Cefazolin Sodium/Dextrose 1 gm (/ Premix) 50 mls @ 100 mls/hr IV ONETIME ONE Stop: 10/20/20 16:29 Last Admin: 10/20/20 15:51 Dose: 100 mls/hr Documented by: Potassium Chloride 20 meq/Lidocaine HCl 2 ml/ Sodium Chloride 112 mls @ 56 mls/hr IV Q2H [facility] Stop: 10/20/20 13:59 Last Admin: 10/20/20 12:15 Dose: 56 mls/hr Documented by: Lactated Ringer's (Ringers, Lactated) Confirm Administered Dose 1,000 mls @ as directed .ROUTE .STK-MED ONE Stop: 10/20/20 17:16 Cefazolin Sodium/Dextrose 1 gm (/ Premix) 50 mls @ 100 mls/hr IV Q8HR [facility] Stop: 10/21/20 14:29 Cefazolin Sodium 1 gm/ Sodium (Chloride) 50 mls @ 100 mls/hr IV Q8H [facility] Stop: 10/21/20 14:29 Last Admin: 10/21/20 13:40 Dose: 100 mls/hr Documented by: Potassium Chloride 20 meq/Lidocaine HCl 2 ml/ Sodium Chloride 112 mls @ 50 mls/hr IV Q2H [facility] Stop: 10/21/20 10:44 Last Admin: 10/21/20 09:21 Dose: 50 mls/hr Documented by: Calcium Gluconate 2 gm/ Sodium (Chloride) 120 mls @ 100 mls/hr IV ONETIME ONE Stop: 10/21/20 10:11 Last Admin: 10/21/20 09:21 Dose: 100 mls/hr Documented by: Sodium Chloride (Normal Saline) 500 mls @ 500 mls/hr IV ONETIME ONE Stop: 10/21/20 10:29 Last Admin: 10/21/20 09:27 Dose: 500 mls/hr Documented by: Sodium Chloride (Normal Saline) 1,000 mls @ 500 mls/hr IV .BOLUS ONE Stop: 10/21/20 13:43 Last Admin: 10/21/20 11:56 Dose: 500 mls/hr Documented by: Sodium Chloride (Normal Saline) 500 mls @ 500 mls/hr IV .BOLUS ONE Stop: 10/21/20 17:09 Last Admin: 10/21/20 16:17 Dose: 500 mls/hr Documented by: Ketamine HCl (Ketamine 500 Mg/5 Ml Mdv) 15 mg IV ONETIME ONE Stop: 10/19/20 17:22 Last Admin: 10/19/20 17:25 Dose: 15 mg Documented by: Lisinopril (Lisinopril 10 Mg Tab) Confirm Administered Dose 20 mg .ROUTE .STK- MED ONE Stop: 10/19/20 21:14 Last Admin: 10/19/20 21:27 Dose: Not Given Documented by: Midazolam HCl (Midazolam 1 Mg/Ml 2 Ml Sdv) Confirm Administered Dose 2 mg .ROUTE .STK-MED ONE Stop: 10/20/20 10:20 Ondansetron HCl (Ondansetron 4 Mg/2 Ml Sdv) 4 mg IVPUSH ONETIME ONE Stop: 10/19/20 16:58 Last Admin: 10/19/20 17:00 Dose: 4 mg Documented by: Phenylephrine HCl (Phenylephrine 1% 10 Mg/Ml Sdv) Confirm Administered Dose 10 mg .ROUTE .STK-MED ONE Stop: 10/20/20 16:30 Potassium Chloride (Potassium Chloride 20 Meq Tab.Er) 40 meq PO ONETIME ONE Stop: 10/21/20 08:01 Last Admin: 10/21/20 08:29 Dose: 40 meq Documented by: Potassium Chloride (Potassium Chloride 20 Meq Tab.Er) 40 meq PO ONETIME ONE Stop: 10/21/20 13:01 Last Admin: 10/21/20 13:39 Dose: 40 meq Documented by: Povidone Iodine (Povidone-Iodine 10% Soln 118.25 Ml Bottle) Confirm Administered Dose 1 ml .ROUTE .STK-MED ONE Stop: 10/20/20 08:34 Last Admin: 10/20/20 17:14 Dose: 40 ml Documented by: Propofol (Propofol 200 Mg/20 Ml Sdv) Confirm Administered Dose 200 mg .ROUTE .STK-MED ONE Stop: 10/20/20 10:20 Sugammadex Sodium (Sugammadex Sodium 200 Mg/2 Ml Vial) Confirm Administered Dose 200 mg .ROUTE .STK-MED ONE Stop: 10/20/20 10:22 - Exam Wound/Incisions: Dressing Dry and Intact Quality Assessment: Supplemental Oxygen, DVT Prophylaxis General: Alert, Oriented, Cooperative Extremities: Pedal Edema, Joint Swelling (left hip extending into left thigh and knee ), Leg Pain (left ), Increased Warmth Skin: Dry, Intact Neurological: No New Focal Deficit Psy/Mental Status: Alert, Normal Affect Sepsis Event Note - Evaluation Sepsis Screening Result: No Definite Risk - Focused Exam Vital Signs: Vital Signs Temp Pulse Resp BP Pulse Ox 10/23/20 07:00 97.7 F 79 15 133/55 L 96 10/23/20 06:00 79 17 120/44 L 97 10/23/20 05:00 78 16 145/57 H 97 10/23/20 04:00 79 16 131/56 L 97 10/23/20 03:00 97.3 F 78 21 H 130/57 L 98 10/23/20 01:58 79 18 127/55 L 96 10/23/20 01:00 76 18 127/53 L 97 10/23/20 00:00 98.1 F 74 16 128/51 L 96 10/22/20 23:00 76 18 132/47 L 96 10/22/20 22:00 80 18 154/58 H 98 10/22/20 21:00 98.7 F 82 14 129/62 94 L - Problem List & Annotations (1) History of hemiarthroplasty of left hip SNOMED Code(s): 963078988 Code(s): Z96.642 - PRESENCE OF LEFT ARTIFICIAL HIP JOINT Status: Acute Current Visit: Yes (2) Postoperative anemia SNOMED Code(s): 566652247, 898813813 Code(s): D64.9 - ANEMIA, UNSPECIFIED Status: Acute Current Visit: Yes - Problem List Review Problem List Initiated/Reviewed/Updated: Yes - My Orders Last 24 Hours: Active Orders 24 hr Category Date Time Status Docusate Sodium/Sennosides [Senna Plus] Med 10/22/20 16:15 Active 2 tab PO BID Sodium Chloride 0.9% [Normal Saline] 1,000 ml Med 10/22/20 16:15 Active IV ASDIRECTED Medication Orders Acetaminophen (Acetaminophen 325 Mg Tab) 650 mg PO Q4H PRN PRN Reason: Pain (Mild 1-3)/fever Last Admin: 10/20/20 05:09 Dose: 650 mg Documented by: JEFERSON Albuterol (Albuterol 0.083% 2.5 Mg/3 Ml Neb Soln) 2.5 mg NEB Q4H PRN PRN Reason: Shortness Of Breath/wheezing Last Admin: 10/21/20 21:02 Dose: 2.5 mg Documented by: Admin: 10/20/20 20:40 Dose: 2.5 mg Documented by: JEFERSON Atorvastatin Calcium (Atorvastatin 20 Mg Tab) 20 mg PO DAILY [facility] Last Admin: 10/22/20 10:51 Dose: 20 mg Documented by: Admin: 10/21/20 08:29 Dose: 20 mg Documented by: Admin: 10/20/20 08:26 Dose: 20 mg Documented by: NANNETTE Carvedilol (Carvedilol 12.5 Mg Tab) 25 mg PO BID [facility] Last Admin: 10/22/20 21:07 Dose: Not Given Documented by: Admin: 10/22/20 10:52 Dose: Not Given Documented by: Admin: 10/21/20 21:40 Dose: Not Given Documented by: Admin: 10/21/20 10:04 Dose: Not Given Documented by: Admin: 10/20/20 20:42 Dose: 25 mg Documented by: Admin: 10/20/20 08:22 Dose: 25 mg Documented by: Admin: 10/19/20 21:23 Dose: 25 mg Documented by: JEFERSON Citalopram Hydrobromide (Citalopram 10 Mg Tab) 10 mg PO BEDTIME [facility] Last Admin: 10/22/20 21:07 Dose: 10 mg Documented by: Admin: 10/21/20 23:15 Dose: 10 mg Documented by: Admin: 10/20/20 20:43 Dose: 10 mg Documented by: Admin: 10/19/20 22:01 Dose: 10 mg Documented by: JEFERSON Docusate Sodium (Docusate Sodium 100 Mg Cap) 100 mg PO BID [facility] Last Admin: 10/22/20 21:07 Dose: 100 mg Documented by: Admin: 10/22/20 10:52 Dose: 100 mg Documented by: Admin: 10/21/20 23:15 Dose: 100 mg Documented by: Admin: 10/21/20 08:29 Dose: 100 mg Documented by: Admin: 10/20/20 20:43 Dose: 100 mg Documented by: JEFERSON Enoxaparin Sodium (Enoxaparin 30 Mg/0.3 Ml Syringe) 30 mg SUBCUT Q24H [facility] Last Admin: 10/22/20 10:50 Dose: 30 mg Documented by: Admin: 10/21/20 08:30 Dose: 30 mg Documented by: KIMBERLY Hydroxychloroquine Sulfate (Hydroxychloroquine 200 Mg Tab) 200 mg PO BID [facility] Last Admin: 10/22/20 21:07 Dose: 200 mg Documented by: Admin: 10/22/20 10:51 Dose: 200 mg Documented by: Admin: 10/21/20 23:15 Dose: 200 mg Documented by: Admin: 10/21/20 08:29 Dose: 200 mg Documented by: Admin: 10/20/20 20:43 Dose: 200 mg Documented by: Admin: 10/20/20 08:21 Dose: 200 mg Documented by: Admin: 10/19/20 21:24 Dose: 200 mg Documented by: JEFERSON Norepinephrine Bitartrate 4 mg (/ Dextrose/Water) 250 mls @ 7.5 mls/hr IV TITRATE [facility]; Protocol Last Titration: 10/23/20 05:08 Dose: 0 mcg/min, 0 mls/hr Documented by: Titration: 10/23/20 04:04 Dose: 3 mcg/min, 11.25 mls/hr Documented by: Titration: 10/23/20 03:19 Dose: 4 mcg/min, 15 mls/hr Documented by: Titration: 10/23/20 01:57 Dose: 5 mcg/min, 18.75 mls/hr Documented by: Titration: 10/23/20 01:04 Dose: 6 mcg/min, 22.5 mls/hr Documented by: Admin: 10/23/20 00:09 Dose: 7 mcg/min, 26.25 mls/hr Documented by: Titration: 10/23/20 00:09 Dose: 8 mcg/min, 30 mls/hr Documented by: Titration: 10/22/20 23:04 Dose: 8 mcg/min, 30 mls/hr Documented by: Titration: 10/22/20 21:13 Dose: 2.4 mcg/min, 9 mls/hr Documented by: Admin: 10/22/20 16:57 Dose: 10 mcg/min, 37.5 mls/hr Documented by: Titration: 10/22/20 16:50 Dose: 10 mcg/min, 37.5 mls/hr Documented by: Titration: 10/22/20 16:11 Dose: 10 mcg/min, 37.5 mls/hr Documented by: Titration: 10/22/20 14:57 Dose: 9 mcg/min, 33.75 mls/hr Documented by: Titration: 10/22/20 14:15 Dose: 11 mcg/min, 41.25 mls/hr Documented by: Admin: 10/22/20 10:48 Dose: 12 mcg/min, 45 mls/hr Documented by: Titration: 10/22/20 10:48 Dose: 12 mcg/min, 45 mls/hr Documented by: Admin: 10/22/20 05:31 Dose: 12 mcg/min, 45 mls/hr Documented by: Titration: 10/22/20 05:31 Dose: 12 mcg/min, 45 mls/hr Documented by: Admin: 10/22/20 00:05 Dose: 12 mcg/min, 45 mls/hr Documented by: Titration: 10/22/20 00:05 Dose: 12 mcg/min, 45 mls/hr Documented by: Titration: 10/21/20 20:56 Dose: 12 mcg/min, 45 mls/hr Documented by: Titration: 10/21/20 20:22 Dose: 11 mcg/min, 41.25 mls/hr Documented by: Titration: 10/21/20 20:04 Dose: 10 mcg/min, 37.5 mls/hr Documented by: Titration: 10/21/20 19:50 Dose: 9 mcg/min, 33.75 mls/hr Documented by: Titration: 10/21/20 19:34 Dose: 8 mcg/min, 30 mls/hr Documented by: Titration: 10/21/20 19:27 Dose: 7 mcg/min, 26.25 mls/hr Documented by: Titration: 10/21/20 19:16 Dose: 6 mcg/min, 22.5 mls/hr Documented by: Titration: 10/21/20 18:40 Dose: 5 mcg/min, 18.75 mls/hr Documented by: Titration: 10/21/20 18:06 Dose: 4 mcg/min, 15 mls/hr Documented by: Titration: 10/21/20 17:17 Dose: 3 mcg/min, 11.25 mls/hr Documented by: Admin: 10/21/20 16:21 Dose: 2 mcg/min, 7.5 mls/hr Documented by: KIMBERLY Sodium Chloride (Normal Saline) 1,000 mls @ 50 mls/hr IV ASDIRECTED [facility] Last Admin: 10/23/20 01:55 Dose: 50 mls/hr Documented by: GINGER Levothyroxine Sodium (Levothyroxine 88 Mcg Tab) 88 mcg PO DAILY@0730 [facility] Last Admin: 10/23/20 07:43 Dose: 88 mcg Documented by: Admin: 10/22/20 07:41 Dose: 88 mcg Documented by: Admin: 10/21/20 07:31 Dose: 88 mcg Documented by: Admin: 10/20/20 08:32 Dose: 88 mcg Documented by: NANNETTE Lisinopril (Lisinopril 20 Mg Tab) 20 mg PO BID [facility] Last Admin: 10/22/20 21:07 Dose: Not Given Documented by: Admin: 10/22/20 10:24 Dose: Not Given Documented by: Admin: 10/21/20 21:41 Dose: Not Given Documented by: Admin: 10/21/20 10:04 Dose: Not Given Documented by: Admin: 10/20/20 20:42 Dose: 20 mg Documented by: Admin: 10/20/20 08:28 Dose: 20 mg Documented by: Admin: 10/19/20 21:24 Dose: 20 mg Documented by: JEFERSON Morphine Sulfate (Morphine 2 Mg/Ml Syringe) 2 mg IVPUSH Q2H PRN PRN Reason: Pain (severe 7-10) Last Admin: 10/21/20 12:46 Dose: 1 mg Documented by: Admin: 10/21/20 03:28 Dose: 2 mg Documented by: Admin: 10/20/20 18:51 Dose: 2 mg Documented by: Admin: 10/20/20 15:49 Dose: 2 mg Documented by: Admin: 10/20/20 13:32 Dose: 2 mg Documented by: Admin: 10/20/20 11:35 Dose: 2 mg Documented by: Admin: 10/20/20 07:53 Dose: 2 mg Documented by: Admin: 10/20/20 03:25 Dose: 2 mg Documented by: JEFERSON Multivitamins/Minerals (Multivitamins With Iron/Calcium/Folic Acid/Minerals Tab) 1 tab PO DAILY [facility] Last Admin: 10/22/20 10:51 Dose: 1 tab Documented by: Admin: 10/21/20 08:27 Dose: 1 tab Documented by: Admin: 10/20/20 08:28 Dose: 1 tab Documented by: NANNETTE Ondansetron HCl (Ondansetron 4 Mg Tab.Dis) 4 mg PO Q6H PRN PRN Reason: Nausea able to take PO Oxycodone HCl (Oxycodone 5 Mg Tab) 10 mg PO Q4H PRN PRN Reason: Pain (moderate 4-6) Last Admin: 10/23/20 07:42 Dose: 10 mg Documented by: Admin: 10/22/20 23:37 Dose: 10 mg Documented by: Admin: 10/22/20 12:54 Dose: 10 mg Documented by: Admin: 10/22/20 06:23 Dose: 10 mg Documented by: Admin: 10/21/20 16:17 Dose: 10 mg Documented by: Admin: 10/21/20 11:29 Dose: 10 mg Documented by: Admin: 10/21/20 07:31 Dose: 10 mg Documented by: Admin: 10/20/20 08:57 Dose: 10 mg Documented by: Admin: 10/20/20 05:09 Dose: 10 mg Documented by: JEFERSON Pantoprazole Sodium (Pantoprazole 40 Mg Vial) 40 mg IV BEDTIME [facility] Last Admin: 10/22/20 21:07 Dose: 40 mg Documented by: Admin: 10/21/20 21:01 Dose: 40 mg Documented by: Admin: 10/20/20 20:40 Dose: 40 mg Documented by: Admin: 10/19/20 21:25 Dose: 40 mg Documented by: JEFERSON Senna/Docusate Sodium (Docusate Sodium/Sennosides 50-8.6 Mg Tab) 2 tab PO BID [facility] Last Admin: 10/22/20 21:08 Dose: 2 tab Documented by: Admin: 10/22/20 17:36 Dose: 2 tab Documented by: YULISA Sulfasalazine (Sulfasalazine 500 Mg Tab) 1,000 mg PO BID [facility] Last Admin: 10/22/20 21:12 Dose: 1,000 mg Documented by: Admin: 10/22/20 10:50 Dose: 1,000 mg Documented by: Admin: 10/21/20 23:15 Dose: 1,000 mg Documented by: Admin: 10/21/20 08:27 Dose: 1,000 mg Documented by: Admin: 10/20/20 20:42 Dose: 1,000 mg Documented by: Admin: 10/20/20 08:24 Dose: 1,000 mg Documented by: Admin: 10/19/20 21:25 Dose: 1,000 mg Documented by: JEFERSON - Assessment Assessment (Free Text/Narrative):: Patient is a pleasant 80 y/o female, s/p left hip hemiarthroplasty, POD#3. No acute events overnight. Labs from the past 24 hours reviewed; white count trending down, HgB remains stable after transfusion yesterday. Patient has maintained blood pressures within acceptable limits over the past 24 hours. Weaned to 1L O2 to maintain oxygen saturations >90%. Endorsed decreased appetite. Denied nausea or vomiting. Minimal pain in L hip at rest. Endorsed pain in L hip with weight bearing activities. Has worked with PT and OT, participation limited by pain, fatigue, and dyspnea on exertion. Was able to perform sit to stand exercises, standing at bedside for ~5 minutes with PT yesterday. Transferred from bed to chair this morning with FWW and x2 assist, noting less pain in L hip today than yesterday. Does endorse weakness with transfer. García remains in place due to limited ambulation abilities at this time. L hip dressing dry and intact. Mild warmth to touch of L hip. Modest edema through L hip into thigh and knee. Mild pedal edema. Tibialis posterior appreciated, 2+. Dorsiflexion: 3/5. Plantar flexion: 3+/5. Patient denied numbness or tingling into L LE. Plan: * Patient to participate in PT and OT daily while in the hospital. Progress ambulation as able, may WBAT on L LE. García may be discontinued as ambulation abilities improve * Continue with current pain regimen * Continue with 30 mg Lovenox qd for chemical prophylaxis, bilateral SCDs for mechanical prophylaxis * Orthopedic service will sign off at this time. Hospitalist to kindly continue medical management of this patient. Anticipate discharge to SNF * Patient to follow up with orthopedic clinic 2-weeks post op. Encouraged patient and daughter to reach out with any concerns or questions arise
[2020-10-23] MEDS: Carvedilol 12.5 MG Tab PO SCH ×2 (10:32→20:59)
[2020-10-23] MEDS: atorvaSTATin 20 MG Tab PO SCH ×2 (10:33→10:39)
[2020-10-23] MEDS: Lisinopril 20 MG Tab PO SCH ×2 (10:35→20:59)
[2020-10-23] MEDS: Multivitamins with Iron/Calcium/Folic Acid/Minerals Tab PO SCH (10:39)
[2020-10-23] MEDS: Hydroxychloroquine 200 MG Tab PO SCH ×2 (10:39→21:00)
[2020-10-23] MEDS: sulfaSALAzine 500 MG Tab PO SCH ×2 (10:39→20:59)
[2020-10-23] MEDS: Docusate Sodium 100 MG Cap PO SCH ×2 (10:39→21:00)
[2020-10-23] MEDS: Enoxaparin 30 MG/0.3 ML Syringe SUBCUT SCH (11:03)
--- NOTE | 2020-10-23 11:57 | PCM.PN ---
- General Info Date of Service: 10/23/20 Subjective Update: Ms. Winter has experienced improvement over the last 24 hours. Blood pressure has stabilized and she is now off of IV norepinephrine. Hemoglobin level has remained fairly stable following transfusion of 1 unit of red blood cells yesterday. Pain control has improved and she has been able to be somewhat more active. - Review of Systems General: Reports: Weakness, Fatigue. Denies: Fever, Chills Pulmonary: Reports: No Symptoms Cardiovascular: Reports: No Symptoms Gastrointestinal: Reports: No Symptoms - Patient Data Vitals - Most Recent: Last Vital Signs Temp 97.7 F 10/23/20 07:00 Pulse 77 10/23/20 10:00 Resp 20 10/23/20 10:00 BP 93/48 L 10/23/20 10:00 Pulse Ox 94 L 10/23/20 10:00 Weight - Most Recent: 177 lb 14.609 oz I&O - Last 24 Hours: Intake & Output 10/22/20 10/23/20 10/23/20 22:59 06:59 14:59 Intake Total 1809 1111 120 Output Total 6 350 5% Balance 174I 761 7; Lab Results Last 24 Hours: Laboratory Results - last 24 hr 10/22/20 10/23/20 10/23/20 Range/Units 17:33 05:25 05:25 WBC 12.7 H (4.5-11.0) K/uL RBC 2.63 L (3.30-5.50) M/uL Hgb 8.9 L 8.3 L (12.0-15.0) g/dL Hct 24.6 L (36.0-48.0) % MCV 94 (80-98) fL MCH 32 H (27-31) pg MCHC 34 (32-36) % Plt Count 179 (150-400) K/uL Neut % (Auto) 74.3 H (36-66) % Lymph % (Auto) 10.0 L (24-44) % [place] % (Auto) 14.4 H (2-6) % Eos % (Auto) 1.2 L (2-4) % Baso % (Auto) 0.1 (0-1) % Sodium 131 L (140-148) mmol/L Potassium 4.2 (3.6-5.2) mmol/L Chloride 99 L (100-108) mmol/L Carbon Dioxide 25 (21-32) mmol/L Anion Gap 11.2 (5.0-14.0) mmol/L BUN 13 (7-18) mg/dL Creatinine 0.6 (0.6-1.0) mg/dL Est Cr Clr Drug Dosing 63.92 mL/min Estimated GFR (MDRD) > 60 (>60) Glucose 102 (74-106) mg/dL Calcium 7.4 L (8.5-10.1) mg/dL Med Orders - Current: Current Medications Acetaminophen (Acetaminophen 325 Mg Tab) 650 mg PO Q4H PRN PRN Reason: Pain (Mild 1-3)/fever Last Admin: 10/20/20 05:09 Dose: 650 mg Documented by: Albuterol (Albuterol 0.083% 2.5 Mg/3 Ml Neb Soln) 2.5 mg NEB Q4H PRN PRN Reason: Shortness Of Breath/wheezing Last Admin: 10/21/20 21:02 Dose: 2.5 mg Documented by: Atorvastatin Calcium (Atorvastatin 20 Mg Tab) 20 mg PO DAILY [facility] Last Admin: 10/23/20 10:39 Dose: 20 mg Documented by: Carvedilol (Carvedilol 12.5 Mg Tab) 25 mg PO BID [facility] Last Admin: 10/23/20 10:32 Dose: Not Given Documented by: Citalopram Hydrobromide (Citalopram 10 Mg Tab) 10 mg PO BEDTIME [facility] Last Admin: 10/22/20 21:07 Dose: 10 mg Documented by: Docusate Sodium (Docusate Sodium 100 Mg Cap) 100 mg PO BID [facility] Last Admin: 10/23/20 10:39 Dose: 100 mg Documented by: Enoxaparin Sodium (Enoxaparin 30 Mg/0.3 Ml Syringe) 30 mg SUBCUT Q24H [facility] Last Admin: 10/23/20 11:03 Dose: 30 mg Documented by: Hydroxychloroquine Sulfate (Hydroxychloroquine 200 Mg Tab) 200 mg PO BID [facility] Last Admin: 10/23/20 10:39 Dose: 200 mg Documented by: Norepinephrine Bitartrate 4 mg (/ Dextrose/Water) 250 mls @ 7.5 mls/hr IV TITRATE [facility]; Protocol Last Titration: 10/23/20 05:08 Dose: 0 mcg/min, 0 mls/hr Documented by: Levothyroxine Sodium (Levothyroxine 88 Mcg Tab) 88 mcg PO DAILY@0730 [facility] Last Admin: 10/23/20 07:43 Dose: 88 mcg Documented by: Lisinopril (Lisinopril 20 Mg Tab) 20 mg PO BID [facility] Last Admin: 10/23/20 10:35 Dose: Not Given Documented by: Melatonin (Melatonin 3 Mg Tab) 9 mg PO BEDTIME [facility] Morphine Sulfate (Morphine 2 Mg/Ml Syringe) 2 mg IVPUSH Q2H PRN PRN Reason: Pain (severe 7-10) Last Admin: 10/21/20 12:46 Dose: 1 mg Documented by: Multivitamins/Minerals (Multivitamins With Iron/Calcium/Folic Acid/Minerals Tab) 1 tab PO DAILY [facility] Last Admin: 10/23/20 10:39 Dose: 1 tab Documented by: Ondansetron HCl (Ondansetron 4 Mg Tab.Dis) 4 mg PO Q6H PRN PRN Reason: Nausea able to take PO Oxycodone HCl (Oxycodone 5 Mg Tab) 10 mg PO Q4H PRN PRN Reason: Pain (moderate 4-6) Last Admin: 10/23/20 07:42 Dose: 10 mg Documented by: Pantoprazole Sodium (Pantoprazole 40 Mg Vial) 40 mg IV BEDTIME [facility] Last Admin: 10/22/20 21:07 Dose: 40 mg Documented by: Senna/Docusate Sodium (Docusate Sodium/Sennosides 50-8.6 Mg Tab) 2 tab PO BID [facility] Last Admin: 10/23/20 10:39 Dose: 2 tab Documented by: Sulfasalazine (Sulfasalazine 500 Mg Tab) 1,000 mg PO BID [facility] Last Admin: 10/23/20 10:39 Dose: 1,000 mg Documented by: Discontinued Medications Amlodipine Besylate (Amlodipine 5 Mg Tab) 5 mg PO DAILY [facility] Last Admin: 10/21/20 10:04 Dose: Not Given Documented by: Cefazolin Sodium (Cefazolin 1 Gm Vial) Confirm Administered Dose 1 gm .ROUTE .STK-MED ONE Stop: 10/20/20 21:35 Last Admin: 10/20/20 21:50 Dose: Not Given Documented by: Chlorthalidone (Chlorthalidone 25 Mg Tab) 25 mg PO DAILY [facility] Last Admin: 10/21/20 10:04 Dose: Not Given Documented by: Citalopram Hydrobromide (Citalopram 10 Mg Tab) 10 mg PO DAILY [facility] Docusate Sodium (Docusate Sodium 100 Mg Cap) 100 mg PO BID PRN PRN Reason: Constipation Last Admin: 10/19/20 21:25 Dose: 100 mg Documented by: Doxazosin Mesylate (Doxazosin 4 Mg Tab) 2 mg PO BID [facility] Last Admin: 10/21/20 10:03 Dose: Not Given Documented by: Ephedrine Sulfate (Ephedrine 50 Mg/Ml Sdv) Confirm Administered Dose 50 mg .R OUTE .STK-MED ONE Stop: 10/20/20 16:29 Fentanyl (Fentanyl 100 Mcg/2 Ml Sdv) Confirm Administered Dose 100 mcg .ROUTE .STK-MED ONE Stop: 10/20/20 10:20 Hydromorphone HCl (Hydromorphone 1 Mg/Ml Syringe) 1 mg IVPUSH ONETIME ONE Stop: 10/19/20 16:58 Last Admin: 10/19/20 17:01 Dose: 1 mg Documented by: Hydromorphone HCl (Hydromorphone 0.5 Mg/0.5 Ml Syringe) 0.5 mg IVPUSH ONETIME ONE Stop: 10/19/20 17:21 Last Admin: 10/19/20 20:59 Dose: Not Given Documented by: Hydromorphone HCl (Hydromorphone 1 Mg/Ml Syringe) 1 mg IVPUSH ONETIME ONE Stop: 10/19/20 18:37 Last Admin: 10/19/20 18:39 Dose: 1 mg Documented by: Sodium Chloride (Normal Saline) 1,000 mls @ 125 mls/hr IV ASDIRECTED [facility] Last Admin: 10/22/20 04:47 Dose: 125 mls/hr Documented by: Cefazolin Sodium/Dextrose 1 gm (/ Premix) 50 mls @ 100 mls/hr IV ONETIME ONE Stop: 10/20/20 16:29 Last Admin: 10/20/20 15:51 Dose: 100 mls/hr Documented by: Potassium Chloride 20 meq/Lidocaine HCl 2 ml/ Sodium Chloride 112 mls @ 56 mls/hr IV Q2H [facility] Stop: 10/20/20 13:59 Last Admin: 10/20/20 12:15 Dose: 56 mls/hr Documented by: Lactated Ringer's (Ringers, Lactated) Confirm Administered Dose 1,000 mls @ as directed .ROUTE .STK-MED ONE Stop: 10/20/20 17:16 Cefazolin Sodium/Dextrose 1 gm (/ Premix) 50 mls @ 100 mls/hr IV Q8HR [facility] Stop: 10/21/20 14:29 Cefazolin Sodium 1 gm/ Sodium (Chloride) 50 mls @ 100 mls/hr IV Q8H [facility] Stop: 10/21/20 14:29 Last Admin: 10/21/20 13:40 Dose: 100 mls/hr Documented by: Potassium Chloride 20 meq/Lidocaine HCl 2 ml/ Sodium Chloride 112 mls @ 50 mls/hr IV Q2H [facility] Stop: 10/21/20 10:44 Last Admin: 10/21/20 09:21 Dose: 50 mls/hr Documented by: Calcium Gluconate 2 gm/ Sodium (Chloride) 120 mls @ 100 mls/hr IV ONETIME ONE Stop: 10/21/20 10:11 Last Admin: 10/21/20 09:21 Dose: 100 mls/hr Documented by: Sodium Chloride (Normal Saline) 500 mls @ 500 mls/hr IV ONETIME ONE Stop: 10/21/20 10:29 Last Admin: 10/21/20 09:27 Dose: 500 mls/hr Documented by: Sodium Chloride (Normal Saline) 1,000 mls @ 500 mls/hr IV .BOLUS ONE Stop: 10/21/20 13:43 Last Admin: 10/21/20 11:56 Dose: 500 mls/hr Documented by: Sodium Chloride (Normal Saline) 500 mls @ 500 mls/hr IV .BOLUS ONE Stop: 10/21/20 17:09 Last Admin: 10/21/20 16:17 Dose: 500 mls/hr Documented by: Sodium Chloride (Normal Saline) 1,000 mls @ 50 mls/hr IV ASDIRECTED [facility] Last Admin: 10/23/20 01:55 Dose: 50 mls/hr Documented by: Ketamine HCl (Ketamine 500 Mg/5 Ml Mdv) 15 mg IV ONETIME ONE Stop: 10/19/20 17:22 Last Admin: 10/19/20 17:25 Dose: 15 mg Documented by: Lisinopril (Lisinopril 10 Mg Tab) Confirm Administered Dose 20 mg .ROUTE .STK- MED ONE Stop: 10/19/20 21:14 Last Admin: 10/19/20 21:27 Dose: Not Given Documented by: Midazolam HCl (Midazolam 1 Mg/Ml 2 Ml Sdv) Confirm Administered Dose 2 mg .ROUTE .STK-MED ONE Stop: 10/20/20 10:20 Ondansetron HCl (Ondansetron 4 Mg/2 Ml Sdv) 4 mg IVPUSH ONETIME ONE Stop: 10/19/20 16:58 Last Admin: 10/19/20 17:00 Dose: 4 mg Documented by: Phenylephrine HCl (Phenylephrine 1% 10 Mg/Ml Sdv) Confirm Administered Dose 10 mg .ROUTE .STK-MED ONE Stop: 10/20/20 16:30 Potassium Chloride (Potassium Chloride 20 Meq Tab.Er) 40 meq PO ONETIME ONE Stop: 10/21/20 08:01 Last Admin: 10/21/20 08:29 Dose: 40 meq Documented by: Potassium Chloride (Potassium Chloride 20 Meq Tab.Er) 40 meq PO ONETIME ONE Stop: 10/21/20 13:01 Last Admin: 10/21/20 13:39 Dose: 40 meq Documented by: Povidone Iodine (Povidone-Iodine 10% Soln 118.25 Ml Bottle) Confirm Administered Dose 1 ml .ROUTE .STK-MED ONE Stop: 10/20/20 08:34 Last Admin: 10/20/20 17:14 Dose: 40 ml Documented by: Propofol (Propofol 200 Mg/20 Ml Sdv) Confirm Administered Dose 200 mg .ROUTE .STK-MED ONE Stop: 10/20/20 10:20 Sugammadex Sodium (Sugammadex Sodium 200 Mg/2 Ml Vial) Confirm Administered Dose 200 mg .ROUTE .STK-MED ONE Stop: 10/20/20 10:22 - Exam Quality Assessment: Supplemental Oxygen, Urine Catheter, DVT Prophylaxis Urinary Catheter Total Time: 2Days 14Hours General: Alert, Cooperative, Mild Distress Lungs: Clear to Auscultation, Normal Respiratory Effort Cardiovascular: Regular Rate, Regular Rhythm, No Murmurs GI/Abdominal Exam: Soft, Non-Tender, No Organomegaly, No Distention Extremities: Pedal Edema, Leg Pain - Patient Data Lab Results Last 24 hrs: Laboratory Results - last 24 hr 10/22/20 10/23/20 10/23/20 Range/Units 17:33 05:25 05:25 WBC 12.7 H (4.5-11.0) K/uL RBC 2.63 L (3.30-5.50) M/uL Hgb 8.9 L 8.3 L (12.0-15.0) g/dL Hct 24.6 L (36.0-48.0) % MCV 94 (80-98) fL MCH 32 H (27-31) pg MCHC 34 (32-36) % Plt Count 179 (150-400) K/uL Neut % (Auto) 74.3 H (36-66) % Lymph % (Auto) 10.0 L (24-44) % [place] % (Auto) 14.4 H (2-6) % Eos % (Auto) 1.2 L (2-4) % Baso % (Auto) 0.1 (0-1) % Sodium 131 L (140-148) mmol/L Potassium 4.2 (3.6-5.2) mmol/L Chloride 99 L (100-108) mmol/L Carbon Dioxide 25 (21-32) mmol/L Anion Gap 11.2 (5.0-14.0) mmol/L BUN 13 (7-18) mg/dL Creatinine 0.6 (0.6-1.0) mg/dL Est Cr Clr Drug Dosing 63.92 mL/min Estimated GFR (MDRD) > 60 (>60) Glucose 102 (74-106) mg/dL Calcium 7.4 L (8.5-10.1) mg/dL Result Diagrams: 10/23/20 05:25 10/23/20 05:25 Sepsis Event Note - Evaluation Sepsis Screening Result: No Definite Risk - Focused Exam Vital Signs: Vital Signs Temp Pulse Resp BP Pulse Ox 10/23/20 10:00 77 20 93/48 L 94 L 10/23/20 09:00 82 89/42 L 10/23/20 08:00 84 22 H 123/52 L 94 L 10/23/20 07:00 97.7 F 79 15 133/55 L 96 10/23/20 06:00 79 17 120/44 L 97 10/23/20 05:00 78 16 145/57 H 97 10/23/20 04:00 79 16 131/56 L 97 10/23/20 03:00 97.3 F 78 21 H 130/57 L 98 10/23/20 01:58 79 18 127/55 L 96 10/23/20 01:00 76 18 127/53 L 97 10/23/20 00:00 98.1 F 74 16 128/51 L 96 - Problem List Review Problem List Initiated/Reviewed/Updated: Yes - My Orders Last 24 Hours: My Active Orders 10/22/20 16:15 Docusate Sodium/Sennosides [Senna Plus] 2 tab PO BID 10/23/20 11:50 Convert IV to Saline Lock [OM.PC] Routine 10/23/20 11:52 Remove García Catheter [Urinary Catheter Removal] [RC] PER UNIT ROUTINE 10/23/20 17:00 HGB [HEMOGLOBIN] [HEME] Stat 10/23/20 21:00 Melatonin 9 mg PO BEDTIME 10/24/20 05:00 BASIC METABOLIC PANEL,BMP [CHEM] Timed CBC WITH AUTO DIFF [HEME] Timed - Plan Plan:: ASSESSMENT AND PLAN LEFT HIP FRACTURE-status post surgical repair -Saline lock IV -Pain and nausea medication as needed -Postoperative care per Dr. Gupta HYPOTENSION-likely secondary to third spacing and possibly ongoing bleeding. Blood pressure has stabilized over the past 24 hours, now off of IV norepinephrine -Continue to monitor in ICU ANEMIA-secondary to blood loss associated with hip fracture and surgery. Stable following transfusion of 1 unit of red blood cells yesterday -Monitor serial hemoglobin levels ALCOHOL USE DISORDER-no evidence of significant alcohol withdrawal -[facility] Protocol HYPOTHYROIDISM -continue outpatient medical therapy -Synthyroid 88 mcg daily CHRONIC DIARRHEA -continue outpatient medical therapy -Sulfasalazine 1000 mg bid HYPOKALEMIA-resolved -Recheck potassium level later today and in the a.m. MAINTENANCE ISSUES -DVT prophylaxis; as above -GI prophylaxis - IV Protonic 40 mg daily -García catheter; will be placed because of severe pain with movement -Nutrition; regular diet, n.p.o. after midnight -Nicotine dependence; not required - quit smoking 22 years ago. -consult to PT -consult to OT CODE STATUS-FULL CODE ADMISSION STATUS-patient will be admitted to inpatient status, expect at least a 2 night hospital stay for evaluation and management of problems as outlined above. At the time of this admission I do not reasonably expected evaluation and management of this problem will require more than a 96 hour hospital stay. DISPOSITION-anticipate discharge to shelter PRIMARY CARE PROVIDER-Dr. Kin Campos, [place], [place]. SURGERY SERVICE- Dr. Gupta, Orthopedic Surgeon HOSPITALIST - Dr. Dumont
[2020-10-23] MEDS: Citalopram 10 MG Tab PO SCH (20:59)
[2020-10-23] MEDS: Pantoprazole 40 MG Vial IV SCH (21:00)
[2020-10-23] MEDS: Melatonin 3 MG Tab PO SCH (21:00)
[2020-10-24] MEDS: oxyCODONE 5 MG Tab PO PRN ×2 (04:09→09:23)
[2020-10-24] MEDS: Levothyroxine 88 MCG Tab PO SCH (07:30)
[2020-10-24] MEDS: atorvaSTATin 20 MG Tab PO SCH (09:20)
[2020-10-24] MEDS: Enoxaparin 30 MG/0.3 ML Syringe SUBCUT SCH (09:20)
[2020-10-24] MEDS: Carvedilol 12.5 MG Tab PO SCH ×2 (09:20→21:13)
[2020-10-24] MEDS: Docusate Sodium 100 MG Cap PO SCH ×2 (09:20→21:14)
[2020-10-24] MEDS: Hydroxychloroquine 200 MG Tab PO SCH ×2 (09:21→21:13)
[2020-10-24] MEDS: sulfaSALAzine 500 MG Tab PO SCH ×2 (09:21→21:13)
[2020-10-24] MEDS: Multivitamins with Iron/Calcium/Folic Acid/Minerals Tab PO SCH (09:21)
[2020-10-24] MEDS: Lisinopril 20 MG Tab PO SCH ×2 (09:21→21:14)
--- NOTE | 2020-10-24 10:38 | PCM.PN ---
- General Info Date of Service: 10/24/20 Subjective Update: Ms. Winter has remained stable since yesterday with no further significant hypotension. Hemoglobin has remained fairly stable. Overall energy level and appetite seem to be improving. Functional Status: Reports: Tolerating Diet, Urinating. Denies: Ambulating - Review of Systems General: Reports: Weakness, Fatigue. Denies: Fever, Chills Pulmonary: Reports: No Symptoms Cardiovascular: Reports: No Symptoms Gastrointestinal: Reports: No Symptoms Musculoskeletal: Reports: Joint Pain - Patient Data Vitals - Most Recent: Last Vital Signs Temp 97.7 F 10/24/20 08:00 Pulse 87 10/24/20 09:20 Resp 12 10/24/20 08:00 BP 131/56 L 10/24/20 09:21 Pulse Ox 98 10/24/20 08:00 Weight - Most Recent: 177 lb 14.609 oz I&O - Last 24 Hours: Intake & Output 10/23/20 10/24/20 10/24/20 22:59 06:59 14:59 Intake Total 800 100 400 Output Total 400 500 Balance 400 100 -100 Lab Results Last 24 Hours: Laboratory Results - last 24 hr 10/23/20 10/23/20 10/24/20 Range/Units 16:54 17:21 05:45 WBC 10.4 (4.5-11.0) K/uL RBC 2.46 L (3.30-5.50) M/uL Hgb 9.3 L 7.9 L (12.0-15.0) g/dL Hct 23.1 L (36.0-48.0) % MCV 94 (80-98) fL MCH 32 H (27-31) pg MCHC 34 (32-36) % Plt Count 198 (150-400) K/uL Neut % (Auto) 72.8 H (36-66) % Lymph % (Auto) 10.8 L (24-44) % Owen % (Auto) 15.1 H (2-6) % Eos % (Auto) 1.2 L (2-4) % Baso % (Auto) 0.1 (0-1) % Sodium (140-148) mmol/L Potassium (3.6-5.2) mmol/L Chloride (100-108) mmol/L Carbon Dioxide (21-32) mmol/L Anion Gap (5.0-14.0) mmol/L BUN (7-18) mg/dL Creatinine (0.6-1.0) mg/dL Est Cr Clr Drug Dosing mL/min Estimated GFR (MDRD) (>60) Glucose (74-106) mg/dL Calcium (8.5-10.1) mg/dL Urine Color Yellow (YELLOW) Urine Appearance Clear (CLEAR) Urine pH 5.5 (5.0-8.0) Ur Specific Preston 1.020 (1.008-1.030) Urine Protein Negative (NEGATIVE) mg/dL Urine Glucose (UA) Negative (NEGATIVE) mg/dL Urine Ketones Negative (NEGATIVE) mg/dL Urine Occult Blood Trace-intact H (NEGATIVE) Urine Nitrite Negative (NEGATIVE) Urine Bilirubin Negative (NEGATIVE) Urine Urobilinogen 0.2 (0.2-1.0) EU/dL Ur Leukocyte Esterase Negative (NEGATIVE) Urine RBC 5-10 H (0-5) Urine WBC 0-5 (0-5) Ur Epithelial Cells Rare Amorphous Sediment Not seen Urine Bacteria Occasional Urine Mucus Occasional 10/24/20 Range/Units 05:45 WBC (4.5-11.0) K/uL RBC (3.30-5.50) M/uL Hgb (12.0-15.0) g/dL Hct (36.0-48.0) % MCV (80-98) fL MCH (27-31) pg MCHC (32-36) % Plt Count (150-400) K/uL Neut % (Auto) (36-66) % Lymph % (Auto) (24-44) % Owen % (Auto) (2-6) % Eos % (Auto) (2-4) % Baso % (Auto) (0-1) % Sodium 130 L (140-148) mmol/L Potassium 4.0 (3.6-5.2) mmol/L Chloride 98 L (100-108) mmol/L Carbon Dioxide 27 (21-32) mmol/L Anion Gap 9.0 (5.0-14.0) mmol/L BUN 13 (7-18) mg/dL Creatinine 0.7 (0.6-1.0) mg/dL Est Cr Clr Drug Dosing 54.79 mL/min Estimated GFR (MDRD) > 60 (>60) Glucose 93 (74-106) mg/dL Calcium 7.6 L (8.5-10.1) mg/dL Urine Color (YELLOW) Urine Appearance (CLEAR) Urine pH (5.0-8.0) Ur Specific Preston (1.008-1.030) Urine Protein (NEGATIVE) mg/dL Urine Glucose (UA) (NEGATIVE) mg/dL Urine Ketones (NEGATIVE) mg/dL Urine Occult Blood (NEGATIVE) Urine Nitrite (NEGATIVE) Urine Bilirubin (NEGATIVE) Urine Urobilinogen (0.2-1.0) EU/dL Ur Leukocyte Esterase (NEGATIVE) Urine RBC (0-5) Urine WBC (0-5) Ur Epithelial Cells Amorphous Sediment Urine Bacteria Urine Mucus Med Orders - Current: Current Medications Acetaminophen (Acetaminophen 325 Mg Tab) 650 mg PO Q4H PRN PRN Reason: Pain (Mild 1-3)/fever Last Admin: 10/20/20 05:09 Dose: 650 mg Documented by: Albuterol (Albuterol 0.083% 2.5 Mg/3 Ml Neb Soln) 2.5 mg NEB Q4H PRN PRN Reason: Shortness Of Breath/wheezing Last Admin: 10/21/20 21:02 Dose: 2.5 mg Documented by: Atorvastatin Calcium (Atorvastatin 20 Mg Tab) 20 mg PO DAILY [facility] Last Admin: 10/24/20 09:20 Dose: 20 mg Documented by: Carvedilol (Carvedilol 12.5 Mg Tab) 25 mg PO BID [facility] Last Admin: 10/24/20 09:20 Dose: 25 mg Documented by: Citalopram Hydrobromide (Citalopram 10 Mg Tab) 10 mg PO BEDTIME [facility] Last Admin: 10/23/20 20:59 Dose: 10 mg Documented by: Docusate Sodium (Docusate Sodium 100 Mg Cap) 100 mg PO BID [facility] Last Admin: 10/24/20 09:20 Dose: Not Given Documented by: Enoxaparin Sodium (Enoxaparin 30 Mg/0.3 Ml Syringe) 30 mg SUBCUT Q24H [facility] Last Admin: 10/24/20 09:20 Dose: 30 mg Documented by: Hydroxychloroquine Sulfate (Hydroxychloroquine 200 Mg Tab) 200 mg PO BID [facility] Last Admin: 10/24/20 09:21 Dose: 200 mg Documented by: Levothyroxine Sodium (Levothyroxine 88 Mcg Tab) 88 mcg PO DAILY@0730 [facility] Last Admin: 10/24/20 07:30 Dose: 88 mcg Documented by: Lisinopril (Lisinopril 20 Mg Tab) 20 mg PO BID [facility] Last Admin: 10/24/20 09:21 Dose: 20 mg Documented by: Melatonin (Melatonin 3 Mg Tab) 9 mg PO BEDTIME [facility] Last Admin: 10/23/20 21:00 Dose: 9 mg Documented by: Morphine Sulfate (Morphine 2 Mg/Ml Syringe) 2 mg IVPUSH Q2H PRN PRN Reason: Pain (severe 7-10) Last Admin: 10/21/20 12:46 Dose: 1 mg Documented by: Multivitamins/Minerals (Multivitamins With Iron/Calcium/Folic Acid/Minerals Tab) 1 tab PO DAILY [facility] Last Admin: 10/24/20 09:21 Dose: 1 tab Documented by: Ondansetron HCl (Ondansetron 4 Mg Tab.Dis) 4 mg PO Q6H PRN PRN Reason: Nausea able to take PO Oxycodone HCl (Oxycodone 5 Mg Tab) 5 - 10 mg PO Q4H PRN PRN Reason: PAIN Last Admin: 10/24/20 09:23 Dose: 5 mg Documented by: Pantoprazole Sodium (Pantoprazole 40 Mg Tab.Cr) 40 mg PO BEDTIME [facility] Senna/Docusate Sodium (Docusate Sodium/Sennosides 50-8.6 Mg Tab) 1 tab PO BID [facility] Sulfasalazine (Sulfasalazine 500 Mg Tab) 1,000 mg PO BID [facility] Last Admin: 10/24/20 09:21 Dose: 1,000 mg Documented by: Discontinued Medications Amlodipine Besylate (Amlodipine 5 Mg Tab) 5 mg PO DAILY [facility] Last Admin: 10/21/20 10:04 Dose: Not Given Documented by: Cefazolin Sodium (Cefazolin 1 Gm Vial) Confirm Administered Dose 1 gm .ROUTE .[facility] ONE Stop: 10/20/20 21:35 Last Admin: 10/20/20 21:50 Dose: Not Given Documented by: Chlorthalidone (Chlorthalidone 25 Mg Tab) 25 mg PO DAILY [facility] Last Admin: 10/21/20 10:04 Dose: Not Given Documented by: Citalopram Hydrobromide (Citalopram 10 Mg Tab) 10 mg PO DAILY [facility] Docusate Sodium (Docusate Sodium 100 Mg Cap) 100 mg PO BID PRN PRN Reason: Constipation Last Admin: 10/19/20 21:25 Dose: 100 mg Documented by: Doxazosin Mesylate (Doxazosin 4 Mg Tab) 2 mg PO BID [facility] Last Admin: 10/21/20 10:03 Dose: Not Given Documented by: Ephedrine Sulfate (Ephedrine 50 Mg/Ml Sdv) Confirm Administered Dose 50 mg .ROUTE .STK-MED ONE Stop: 10/20/20 16:29 Fentanyl (Fentanyl 100 Mcg/2 Ml Sdv) Confirm Administered Dose 100 mcg .ROUTE .STK-MED ONE Stop: 10/20/20 10:20 Hydromorphone HCl (Hydromorphone 1 Mg/Ml Syringe) 1 mg IVPUSH ONETIME ONE Stop: 10/19/20 16:58 Last Admin: 10/19/20 17:01 Dose: 1 mg Documented by: Hydromorphone HCl (Hydromorphone 0.5 Mg/0.5 Ml Syringe) 0.5 mg IVPUSH ONETIME ONE Stop: 10/19/20 17:21 Last Admin: 10/19/20 20:59 Dose: Not Given Documented by: Hydromorphone HCl (Hydromorphone 1 Mg/Ml Syringe) 1 mg IVPUSH ONETIME ONE Stop: 10/19/20 18:37 Last Admin: 10/19/20 18:39 Dose: 1 mg Documented by: Sodium Chloride (Normal Saline) 1,000 mls @ 125 mls/hr IV ASDIRECTED [facility] Last Admin: 10/22/20 04:47 Dose: 125 mls/hr Documented by: Cefazolin Sodium/Dextrose 1 gm (/ Premix) 50 mls @ 100 mls/hr IV ONETIME ONE Stop: 10/20/20 16:29 Last Admin: 10/20/20 15:51 Dose: 100 mls/hr Documented by: Potassium Chloride 20 meq/Lidocaine HCl 2 ml/ Sodium Chloride 112 mls @ 56 mls/hr IV Q2H [facility] Stop: 10/20/20 13:59 Last Admin: 10/20/20 12:15 Dose: 56 mls/hr Documented by: Lactated Ringer's (Ringers, Lactated) Confirm Administered Dose 1,000 mls @ as directed .ROUTE .STK-MED ONE Stop: 10/20/20 17:16 Cefazolin Sodium/Dextrose 1 gm (/ Premix) 50 mls @ 100 mls/hr IV Q8HR [facility] Stop: 10/21/20 14:29 Cefazolin Sodium 1 gm/ Sodium (Chloride) 50 mls @ 100 mls/hr IV Q8H [facility] Stop: 10/21/20 14:29 Last Admin: 10/21/20 13:40 Dose: 100 mls/hr Documented by: Potassium Chloride 20 meq/Lidocaine HCl 2 ml/ Sodium Chloride 112 mls @ 50 mls/hr IV Q2H [facility] Stop: 10/21/20 10:44 Last Admin: 10/21/20 09:21 Dose: 50 mls/hr Documented by: Calcium Gluconate 2 gm/ Sodium (Chloride) 120 mls @ 100 mls/hr IV ONETIME ONE Stop: 10/21/20 10:11 Last Admin: 10/21/20 09:21 Dose: 100 mls/hr Documented by: Sodium Chloride (Normal Saline) 500 mls @ 500 mls/hr IV ONETIME ONE Stop: 10/21/20 10:29 Last Admin: 10/21/20 09:27 Dose: 500 mls/hr Documented by: Sodium Chloride (Normal Saline) 1,000 mls @ 500 mls/hr IV .BOLUS ONE Stop: 10/21/20 13:43 Last Admin: 10/21/20 11:56 Dose: 500 mls/hr Documented by: Norepinephrine Bitartrate 4 mg (/ Dextrose/Water) 250 mls @ 7.5 mls/hr IV TITRATE [facility]; Protocol Last Titration: 10/23/20 05:08 Dose: 0 mcg/min, 0 mls/hr Documented by: Sodium Chloride (Normal Saline) 500 mls @ 500 mls/hr IV .BOLUS ONE Stop: 10/21/20 17:09 Last Admin: 10/21/20 16:17 Dose: 500 mls/hr Documented by: Sodium Chloride (Normal Saline) 1,000 mls @ 50 mls/hr IV ASDIRECTED [facility] Last Admin: 10/23/20 01:55 Dose: 50 mls/hr Documented by: Ketamine HCl (Ketamine 500 Mg/5 Ml Mdv) 15 mg IV ONETIME ONE Stop: 10/19/20 17:22 Last Admin: 10/19/20 17:25 Dose: 15 mg Documented by: Lisinopril (Lisinopril 10 Mg Tab) Confirm Administered Dose 20 mg .ROUTE .STK- MED ONE Stop: 10/19/20 21:14 Last Admin: 10/19/20 21:27 Dose: Not Given Documented by: Midazolam HCl (Midazolam 1 Mg/Ml 2 Ml Sdv) Confirm Administered Dose 2 mg .ROUTE .STK-MED ONE Stop: 10/20/20 10:20 Ondansetron HCl (Ondansetron 4 Mg/2 Ml Sdv) 4 mg IVPUSH ONETIME ONE Stop: 10/19/20 16:58 Last Admin: 10/19/20 17:00 Dose: 4 mg Documented by: Oxycodone HCl (Oxycodone 5 Mg Tab) 10 mg PO Q4H PRN PRN Reason: Pain (moderate 4-6) Last Admin: 10/23/20 15:06 Dose: 5 mg Documented by: Pantoprazole Sodium (Pantoprazole 40 Mg Vial) 40 mg IV BEDTIME [facility] Last Admin: 10/23/20 21:00 Dose: 40 mg Documented by: Phenylephrine HCl (Phenylephrine 1% 10 Mg/Ml Sdv) Confirm Administered Dose 10 mg .ROUTE .STK-MED ONE Stop: 10/20/20 16:30 Potassium Chloride (Potassium Chloride 20 Meq Tab.Er) 40 meq PO ONETIME ONE Stop: 10/21/20 08:01 Last Admin: 10/21/20 08:29 Dose: 40 meq Documented by: Potassium Chloride (Potassium Chloride 20 Meq Tab.Er) 40 meq PO ONETIME ONE Stop: 10/21/20 13:01 Last Admin: 10/21/20 13:39 Dose: 40 meq Documented by: Povidone Iodine (Povidone-Iodine 10% Soln 118.25 Ml Bottle) Confirm Administered Dose 1 ml .ROUTE .STK-MED ONE Stop: 10/20/20 08:34 Last Admin: 10/20/20 17:14 Dose: 40 ml Documented by: Propofol (Propofol 200 Mg/20 Ml Sdv) Confirm Administered Dose 200 mg .ROUTE .STK-MED ONE Stop: 10/20/20 10:20 Senna/Docusate Sodium (Docusate Sodium/Sennosides 50-8.6 Mg Tab) 2 tab PO BID [facility] Last Admin: 10/24/20 09:21 Dose: Not Given Documented by: Sugammadex Sodium (Sugammadex Sodium 200 Mg/2 Ml Vial) Confirm Administered Dose 200 mg .ROUTE .[facility] Stop: 10/20/20 10:22 - Exam Quality Assessment: Supplemental Oxygen, DVT Prophylaxis Urinary Catheter Total Time: 2Days 14Hours General: Alert, Oriented, Cooperative, Mild Distress Lungs: Clear to Auscultation, Normal Respiratory Effort Cardiovascular: Regular Rate, Regular Rhythm, Murmurs GI/Abdominal Exam: Soft, Non-Tender, No Organomegaly, No Distention Extremities: Leg Pain - Patient Data Lab Results Last 24 hrs: Laboratory Results - last 24 hr 10/23/20 10/23/20 10/24/20 Range/Units 16:54 17:21 05:45 WBC 10.4 (4.5-11.0) K/uL RBC 2.46 L (3.30-5.50) M/uL Hgb 9.3 L 7.9 L (12.0-15.0) g/dL Hct 23.1 L (36.0-48.0) % MCV 94 (80-98) fL MCH 32 H (27-31) pg MCHC 34 (32-36) % Plt Count 198 (150-400) K/uL Neut % (Auto) 72.8 H (36-66) % Lymph % (Auto) 10.8 L (24-44) % Owen % (Auto) 15.1 H (2-6) % Eos % (Auto) 1.2 L (2-4) % Baso % (Auto) 0.1 (0-1) % Sodium (140-148) mmol/L Potassium (3.6-5.2) mmol/L Chloride (100-108) mmol/L Carbon Dioxide (21-32) mmol/L Anion Gap (5.0-14.0) mmol/L BUN (7-18) mg/dL Creatinine (0.6-1.0) mg/dL Est Cr Clr Drug Dosing mL/min Estimated GFR (MDRD) (>60) Glucose (74-106) mg/dL Calcium (8.5-10.1) mg/dL Urine Color Yellow (YELLOW) Urine Appearance Clear (CLEAR) Urine pH 5.5 (5.0-8.0) Ur Specific Preston 1.020 (1.008-1.030) Urine Protein Negative (NEGATIVE) mg/dL Urine Glucose (UA) Negative (NEGATIVE) mg/dL Urine Ketones Negative (NEGATIVE) mg/dL Urine Occult Blood Trace-intact H (NEGATIVE) Urine Nitrite Negative (NEGATIVE) Urine Bilirubin Negative (NEGATIVE) Urine Urobilinogen 0.2 (0.2-1.0) EU/dL Ur Leukocyte Esterase Negative (NEGATIVE) Urine RBC 5-10 H (0-5) Urine WBC 0-5 (0-5) Ur Epithelial Cells Rare Amorphous Sediment Not seen Urine Bacteria Occasional Urine Mucus Occasional 10/24/20 Range/Units 05:45 WBC (4.5-11.0) K/uL RBC (3.30-5.50) M/uL Hgb (12.0-15.0) g/dL Hct (36.0-48.0) % MCV (80-98) fL MCH (27-31) pg MCHC (32-36) % Plt Count (150-400) K/uL Neut % (Auto) (36-66) % Lymph % (Auto) (24-44) % Owen % (Auto) (2-6) % Eos % (Auto) (2-4) % Baso % (Auto) (0-1) % Sodium 130 L (140-148) mmol/L Potassium 4.0 (3.6-5.2) mmol/L Chloride 98 L (100-108) mmol/L Carbon Dioxide 27 (21-32) mmol/L Anion Gap 9.0 (5.0-14.0) mmol/L BUN 13 (7-18) mg/dL Creatinine 0.7 (0.6-1.0) mg/dL Est Cr Clr Drug Dosing 54.79 mL/min Estimated GFR (MDRD) > 60 (>60) Glucose 93 (74-106) mg/dL Calcium 7.6 L (8.5-10.1) mg/dL Urine Color (YELLOW) Urine Appearance (CLEAR) Urine pH (5.0-8.0) Ur Specific Preston (1.008-1.030) Urine Protein (NEGATIVE) mg/dL Urine Glucose (UA) (NEGATIVE) mg/dL Urine Ketones (NEGATIVE) mg/dL Urine Occult Blood (NEGATIVE) Urine Nitrite (NEGATIVE) Urine Bilirubin (NEGATIVE) Urine Urobilinogen (0.2-1.0) EU/dL Ur Leukocyte Esterase (NEGATIVE) Urine RBC (0-5) Urine WBC (0-5) Ur Epithelial Cells Amorphous Sediment Urine Bacteria Urine Mucus Result Diagrams: 10/24/20 05:45 10/24/20 05:45 Sepsis Event Note - Evaluation Sepsis Screening Result: No Definite Risk - Focused Exam Vital Signs: Vital Signs Temp Pulse Pulse Resp BP BP Pulse Ox 10/24/20 09:21 131/56 L 10/24/20 09:20 87 131/56 L 10/24/20 08:00 97.7 F 12 131/56 L 98 10/24/20 06:00 82 19 132/84 96 10/24/20 04:00 98.0 F 82 18 146/54 H 95 10/24/20 02:00 98.1 F 86 14 138/58 L 97 10/24/20 00:00 81 19 104/47 L 98 - Problem List Review Problem List Initiated/Reviewed/Updated: Yes - My Orders Last 24 Hours: My Active Orders 10/23/20 11:50 Convert IV to Saline Lock [OM.PC] Routine 10/23/20 20:22 oxyCODONE 5 - 10 mg PO Q4H PRN 10/23/20 21:00 Melatonin 9 mg PO BEDTIME 10/24/20 10:32 Patient Status [ADT] Routine 10/24/20 21:00 Docusate Sodium/Sennosides [Senna Plus] 1 tab PO BID 10/25/20 05:11 HGB [HEMOGLOBIN] [HEME] AM - Plan Plan:: ASSESSMENT AND PLAN LEFT HIP FRACTURE-status post surgical repair -Saline lock IV -Pain and nausea medication as needed -Postoperative care per Dr. Gupta HYPOTENSION-resolved ANEMIA-secondary to blood loss associated with hip fracture and surgery. Stable following transfusion of 1 unit of red blood cells 2 days ago -Monitor serial hemoglobin levels ALCOHOL USE DISORDER-no evidence of significant alcohol withdrawal -CIOHA Protocol HYPOTHYROIDISM -continue outpatient medical therapy -Synthyroid 88 mcg daily CHRONIC DIARRHEA -continue outpatient medical therapy -Sulfasalazine 1000 mg bid HYPOKALEMIA-resolved -Recheck potassium level later today and in the a.m. MAINTENANCE ISSUES -DVT prophylaxis; as above -GI prophylaxis - IV Protonic 40 mg daily -García catheter; will be placed because of severe pain with movement -Nutrition; regular diet, n.p.o. after midnight -Nicotine dependence; not required - quit smoking 22 years ago. -consult to PT -consult to OT CODE STATUS-FULL CODE ADMISSION STATUS-patient will be admitted to inpatient status, expect at least a 2 night hospital stay for evaluation and management of problems as outlined above. At the time of this admission I do not reasonably expected evaluation and management of this problem will require more than a 96 hour hospital stay. DISPOSITION-anticipate discharge to detention PRIMARY CARE PROVIDER-Dr. Kin Campos, [facility], [place], [place]. SURGERY SERVICE- Dr. Gupta, Orthopedic Surgeon HOSPITALIST - Dr. Dumont
[2020-10-24] MEDS ORDERED: Furosemide 20 MG/2 ML VIAL IVPUSH ONE (11:00)
[2020-10-24] MEDS ORDERED: Pantoprazole 40 MG Tab.CR PO SCH (21:00)
[2020-10-24] MEDS: Melatonin 3 MG Tab PO SCH (21:14)
[2020-10-24] MEDS: Citalopram 10 MG Tab PO SCH (21:14)
[2020-10-25] MEDS: Acetaminophen 325 MG Tab PO PRN (01:59)
[2020-10-25] MEDS ORDERED: Potassium Chloride 20 MEQ Tab.ER PO ONE ×3 (08:00→17:00)
[2020-10-25] MEDS ORDERED: Furosemide 20 MG/2 ML VIAL IVPUSH ONE (08:00)
[2020-10-25] MEDS: Docusate Sodium 100 MG Cap PO SCH ×2 (08:21→20:25)
[2020-10-25] MEDS: Multivitamins with Iron/Calcium/Folic Acid/Minerals Tab PO SCH (08:21)
[2020-10-25] MEDS: Carvedilol 12.5 MG Tab PO SCH ×2 (08:21→20:26)
[2020-10-25] MEDS: sulfaSALAzine 500 MG Tab PO SCH ×2 (08:21→20:29)
[2020-10-25] MEDS: atorvaSTATin 20 MG Tab PO SCH (08:22)
[2020-10-25] MEDS: Levothyroxine 88 MCG Tab PO SCH (08:22)
[2020-10-25] MEDS: Hydroxychloroquine 200 MG Tab PO SCH ×2 (08:22→20:28)
[2020-10-25] MEDS: Enoxaparin 30 MG/0.3 ML Syringe SUBCUT SCH (08:23)
[2020-10-25] MEDS: Lisinopril 20 MG Tab PO SCH ×2 (08:23→20:30)
--- NOTE | 2020-10-25 11:18 | PCM.PN ---
- General Info Date of Service: 10/25/20 Subjective Update: Ms. Winter has continued to experience improvement in overall strength, appetite remains fairly poor. She is now able to walk short distances. Hemoglobin has d ropped close to 7 and will plan to transfuse 1 unit of red blood cells today. She does have persistent edema in her left leg. Functional Status: Reports: Ambulating, Urinating - Review of Systems General: Reports: Weakness, Fatigue. Denies: Fever, Chills Pulmonary: Reports: No Symptoms Cardiovascular: Reports: No Symptoms Gastrointestinal: Reports: No Symptoms Musculoskeletal: Reports: Joint Pain - Patient Data Vitals - Most Recent: Last Vital Signs Temp 98.5 F 10/25/20 10:35 Pulse 77 10/25/20 10:35 Resp 16 10/25/20 10:35 BP 151/59 H 10/25/20 10:35 Pulse Ox 94 L 10/25/20 10:35 Weight - Most Recent: 177 lb 14.609 oz I&O - Last 24 Hours: Intake & Output 10/24/20 10/25/20 10/25/20 22:59 06:59 14:59 Intake Total 600 300 480 Output Total 400 Balance 600 -100 480 Lab Results Last 24 Hours: Laboratory Results - last 24 hr 10/25/20 10/25/20 10/25/20 Range/Units 05:44 05:59 05:59 Hgb 7.3 L (12.0-15.0) g/dL Sodium 131 L (140-148) mmol/L Potassium 3.0 L (3.6-5.2) mmol/L Chloride 97 L (100-108) mmol/L Carbon Dioxide 27 (21-32) mmol/L Anion Gap 10.0 (5.0-14.0) mmol/L BUN 12 (7-18) mg/dL Creatinine 0.7 (0.6-1.0) mg/dL Est Cr Clr Drug Dosing 54.79 mL/min Estimated GFR (MDRD) > 60 (>60) Glucose 101 (74-106) mg/dL Calcium 7.7 L (8.5-10.1) mg/dL Blood Type A POSITIVE Gel Antibody Screen Negative Crossmatch See Detail Med Orders - Current: Current Medications Acetaminophen (Acetaminophen 325 Mg Tab) 650 mg PO Q4H PRN PRN Reason: Pain (Mild 1-3)/fever Last Admin: 10/25/20 01:59 Dose: 650 mg Documented by: Albuterol (Albuterol 0.083% 2.5 Mg/3 Ml Neb Soln) 2.5 mg NEB Q4H PRN PRN Reason: Shortness Of Breath/wheezing Last Admin: 10/21/20 21:02 Dose: 2.5 mg Documented by: Atorvastatin Calcium (Atorvastatin 20 Mg Tab) 20 mg PO DAILY [facility] Last Admin: 10/25/20 08:22 Dose: 20 mg Documented by: Carvedilol (Carvedilol 12.5 Mg Tab) 25 mg PO BID [facility] Last Admin: 10/25/20 08:21 Dose: 25 mg Documented by: Citalopram Hydrobromide (Citalopram 10 Mg Tab) 10 mg PO BEDTIME [facility] Last Admin: 10/24/20 21:14 Dose: 10 mg Documented by: Docusate Sodium (Docusate Sodium 100 Mg Cap) 100 mg PO BID [facility] Last Admin: 10/25/20 08:21 Dose: 100 mg Documented by: Enoxaparin Sodium (Enoxaparin 30 Mg/0.3 Ml Syringe) 30 mg SUBCUT Q24H [facility] Last Admin: 10/25/20 08:23 Dose: 30 mg Documented by: Hydroxychloroquine Sulfate (Hydroxychloroquine 200 Mg Tab) 200 mg PO BID [facility] Last Admin: 10/25/20 08:22 Dose: 200 mg Documented by: Levothyroxine Sodium (Levothyroxine 88 Mcg Tab) 88 mcg PO DAILY@0730 [facility] Last Admin: 10/25/20 08:22 Dose: 88 mcg Documented by: Lisinopril (Lisinopril 20 Mg Tab) 20 mg PO BID [facility] Last Admin: 10/25/20 08:23 Dose: 20 mg Documented by: Melatonin (Melatonin 3 Mg Tab) 9 mg PO BEDTIME [facility] Last Admin: 10/24/20 21:14 Dose: 9 mg Documented by: Morphine Sulfate (Morphine 2 Mg/Ml Syringe) 2 mg IVPUSH Q2H PRN PRN Reason: Pain (severe 7-10) Last Admin: 10/21/20 12:46 Dose: 1 mg Documented by: Multivitamins/Minerals (Multivitamins With Iron/Calcium/Folic Acid/Minerals Tab) 1 tab PO DAILY [facility] Last Admin: 10/25/20 08:21 Dose: 1 tab Documented by: Ondansetron HCl (Ondansetron 4 Mg Tab.Dis) 4 mg PO Q6H PRN PRN Reason: Nausea able to take PO Oxycodone HCl (Oxycodone 5 Mg Tab) 5 - 10 mg PO Q4H PRN PRN Reason: PAIN Last Admin: 10/24/20 09:23 Dose: 5 mg Documented by: Pantoprazole Sodium (Pantoprazole 40 Mg Tab.Cr) 40 mg PO BEDTIME [facility] Last Admin: 10/24/20 21:13 Dose: 40 mg Documented by: Potassium Chloride (Potassium Chloride 20 Meq Tab.Er) 40 meq PO ONETIME ONE Stop: 10/25/20 12:01 Potassium Chloride (Potassium Chloride 20 Meq Tab.Er) 40 meq PO ONETIME ONE Stop: 10/25/20 17:01 Senna/Docusate Sodium (Docusate Sodium/Sennosides 50-8.6 Mg Tab) 1 tab PO BID [facility] Last Admin: 10/25/20 08:21 Dose: 1 tab Documented by: Sulfasalazine (Sulfasalazine 500 Mg Tab) 1,000 mg PO BID [facility] Last Admin: 10/25/20 08:21 Dose: 1,000 mg Documented by: Discontinued Medications Amlodipine Besylate (Amlodipine 5 Mg Tab) 5 mg PO DAILY [facility] Last Admin: 10/21/20 10:04 Dose: Not Given Documented by: Cefazolin Sodium (Cefazolin 1 Gm Vial) Confirm Administered Dose 1 gm .ROUTE .STK-MED ONE Stop: 10/20/20 21:35 Last Admin: 10/20/20 21:50 Dose: Not Given Documented by: Chlorthalidone (Chlorthalidone 25 Mg Tab) 25 mg PO DAILY [facility] Last Admin: 10/21/20 10:04 Dose: Not Given Documented by: Citalopram Hydrobromide (Citalopram 10 Mg Tab) 10 mg PO DAILY [facility] Docusate Sodium (Docusate Sodium 100 Mg Cap) 100 mg PO BID PRN PRN Reason: Constipation Last Admin: 10/19/20 21:25 Dose: 100 mg Documented by: Doxazosin Mesylate (Doxazosin 4 Mg Tab) 2 mg PO BID [facility] Last Admin: 10/21/20 10:03 Dose: Not Given Documented by: Ephedrine Sulfate (Ephedrine 50 Mg/Ml Sdv) Confirm Administered Dose 50 mg .ROUTE .STK-MED ONE Stop: 10/20/20 16:29 Fentanyl (Fentanyl 100 Mcg/2 Ml Sdv) Confirm Administered Dose 100 mcg .ROUTE .STK-MED ONE Stop: 10/20/20 10:20 Furosemide (Furosemide 20 Mg/2 Ml Vial) 20 mg IVPUSH NOW ONE Stop: 10/24/20 11:01 Last Admin: 10/24/20 11:44 Dose: 20 mg Documented by: Furosemide (Furosemide 20 Mg/2 Ml Vial) 20 mg IVPUSH NOW ONE Stop: 10/25/20 08:01 Hydromorphone HCl (Hydromorphone 1 Mg/Ml Syringe) 1 mg IVPUSH ONETIME ONE Stop: 10/19/20 16:58 Last Admin: 10/19/20 17:01 Dose: 1 mg Documented by: Hydromorphone HCl (Hydromorphone 0.5 Mg/0.5 Ml Syringe) 0.5 mg IVPUSH ONETIME ONE Stop: 10/19/20 17:21 Last Admin: 10/19/20 20:59 Dose: Not Given Documented by: Hydromorphone HCl (Hydromorphone 1 Mg/Ml Syringe) 1 mg IVPUSH ONETIME ONE Stop: 10/19/20 18:37 Last Admin: 10/19/20 18:39 Dose: 1 mg Documented by: Sodium Chloride (Normal Saline) 1,000 mls @ 125 mls/hr IV ASDIRECTED [facility] Last Admin: 10/22/20 04:47 Dose: 125 mls/hr Documented by: Cefazolin Sodium/Dextrose 1 gm (/ Premix) 50 mls @ 100 mls/hr IV ONETIME ONE Stop: 10/20/20 16:29 Last Admin: 10/20/20 15:51 Dose: 100 mls/hr Documented by: Potassium Chloride 20 meq/Lidocaine HCl 2 ml/ Sodium Chloride 112 mls @ 56 mls/hr IV Q2H [facility] Stop: 10/20/20 13:59 Last Admin: 10/20/20 12:15 Dose: 56 mls/hr Documented by: Lactated Ringer's (Ringers, Lactated) Confirm Administered Dose 1,000 mls @ as directed .ROUTE .STK-MED ONE Stop: 10/20/20 17:16 Cefazolin Sodium/Dextrose 1 gm (/ Premix) 50 mls @ 100 mls/hr IV Q8HR [facility] Stop: 10/21/20 14:29 Cefazolin Sodium 1 gm/ Sodium (Chloride) 50 mls @ 100 mls/hr IV Q8H [facility] Stop: 10/21/20 14:29 Last Admin: 10/21/20 13:40 Dose: 100 mls/hr Documented by: Potassium Chloride 20 meq/Lidocaine HCl 2 ml/ Sodium Chloride 112 mls @ 50 mls/hr IV Q2H [facility] Stop: 10/21/20 10:44 Last Admin: 10/21/20 09:21 Dose: 50 mls/hr Documented by: Calcium Gluconate 2 gm/ Sodium (Chloride) 120 mls @ 100 mls/hr IV ONETIME ONE Stop: 10/21/20 10:11 Last Admin: 10/21/20 09:21 Dose: 100 mls/hr Documented by: Sodium Chloride (Normal Saline) 500 mls @ 500 mls/hr IV ONETIME ONE Stop: 10/21/20 10:29 Last Admin: 10/21/20 09:27 Dose: 500 mls/hr Documented by: Sodium Chloride (Normal Saline) 1,000 mls @ 500 mls/hr IV .BOLUS ONE Stop: 10/21/20 13:43 Last Admin: 10/21/20 11:56 Dose: 500 mls/hr Documented by: Norepinephrine Bitartrate 4 mg (/ Dextrose/Water) 250 mls @ 7.5 mls/hr IV TITRATE [facility]; Protocol Last Titration: 10/23/20 05:08 Dose: 0 mcg/min, 0 mls/hr Documented by: Sodium Chloride (Normal Saline) 500 mls @ 500 mls/hr IV .BOLUS ONE Stop: 10/21/20 17:09 Last Admin: 10/21/20 16:17 Dose: 500 mls/hr Documented by: Sodium Chloride (Normal Saline) 1,000 mls @ 50 mls/hr IV ASDIRECTED [facility] Last Admin: 10/23/20 01:55 Dose: 50 mls/hr Documented by: Ketamine HCl (Ketamine 500 Mg/5 Ml Mdv) 15 mg IV ONETIME ONE Stop: 10/19/20 17:22 Last Admin: 10/19/20 17:25 Dose: 15 mg Documented by: Lisinopril (Lisinopril 10 Mg Tab) Confirm Administered Dose 20 mg .ROUTE .STK- MED ONE Stop: 10/19/20 21:14 Last Admin: 10/19/20 21:27 Dose: Not Given Documented by: Midazolam HCl (Midazolam 1 Mg/Ml 2 Ml Sdv) Confirm Administered Dose 2 mg .ROUTE .STK-MED ONE Stop: 10/20/20 10:20 Ondansetron HCl (Ondansetron 4 Mg/2 Ml Sdv) 4 mg IVPUSH ONETIME ONE Stop: 10/19/20 16:58 Last Admin: 10/19/20 17:00 Dose: 4 mg Documented by: Oxycodone HCl (Oxycodone 5 Mg Tab) 10 mg PO Q4H PRN PRN Reason: Pain (moderate 4-6) Last Admin: 10/23/20 15:06 Dose: 5 mg Documented by: Pantoprazole Sodium (Pantoprazole 40 Mg Vial) 40 mg IV BEDTIME [facility] Last Admin: 10/23/20 21:00 Dose: 40 mg Documented by: Phenylephrine HCl (Phenylephrine 1% 10 Mg/Ml Sdv) Confirm Administered Dose 10 mg .ROUTE .STK-MED ONE Stop: 10/20/20 16:30 Potassium Chloride (Potassium Chloride 20 Meq Tab.Er) 40 meq PO ONETIME ONE Stop: 10/21/20 08:01 Last Admin: 10/21/20 08:29 Dose: 40 meq Documented by: Potassium Chloride (Potassium Chloride 20 Meq Tab.Er) 40 meq PO ONETIME ONE Stop: 10/21/20 13:01 Last Admin: 10/21/20 13:39 Dose: 40 meq Documented by: Potassium Chloride (Potassium Chloride 20 Meq Tab.Er) 40 meq PO ONETIME ONE Stop: 10/25/20 08:01 Last Admin: 10/25/20 08:21 Dose: 40 meq Documented by: Povidone Iodine (Povidone-Iodine 10% Soln 118.25 Ml Bottle) Confirm Administered Dose 1 ml .ROUTE .STK-MED ONE Stop: 10/20/20 08:34 Last Admin: 10/20/20 17:14 Dose: 40 ml Documented by: Propofol (Propofol 200 Mg/20 Ml Sdv) Confirm Administered Dose 200 mg .ROUTE .STK-MED ONE Stop: 10/20/20 10:20 Senna/Docusate Sodium (Docusate Sodium/Sennosides 50-8.6 Mg Tab) 2 tab PO BID [facility] Last Admin: 10/24/20 09:21 Dose: Not Given Documented by: Sugammadex Sodium (Sugammadex Sodium 200 Mg/2 Ml Vial) Confirm Administered Dose 200 mg .ROUTE .STK-MED ONE Stop: 10/20/20 10:22 - Exam Quality Assessment: DVT Prophylaxis Urinary Catheter Total Time: 2Days 14Hours General: Alert, Oriented, Cooperative, Mild Distress Lungs: Clear to Auscultation, Normal Respiratory Effort Cardiovascular: Regular Rate, Regular Rhythm, No Murmurs GI/Abdominal Exam: Soft, Non-Tender, No Organomegaly, No Distention Extremities: Leg Pain - Patient Data Lab Results Last 24 hrs: Laboratory Results - last 24 hr 10/25/20 10/25/20 10/25/20 Range/Units 05:44 05:59 05:59 Hgb 7.3 L (12.0-15.0) g/dL Sodium 131 L (140-148) mmol/L Potassium 3.0 L (3.6-5.2) mmol/L Chloride 97 L (100-108) mmol/L Carbon Dioxide 27 (21-32) mmol/L Anion Gap 10.0 (5.0-14.0) mmol/L BUN 12 (7-18) mg/dL Creatinine 0.7 (0.6-1.0) mg/dL Est Cr Clr Drug Dosing 54.79 mL/min Estimated GFR (MDRD) > 60 (>60) Glucose 101 (74-106) mg/dL Calcium 7.7 L (8.5-10.1) mg/dL Blood Type A POSITIVE Gel Antibody Screen Negative Crossmatch See Detail Result Diagrams: 10/25/20 05:59 10/25/20 05:59 Sepsis Event Note - Evaluation Sepsis Screening Result: No Definite Risk - Focused Exam Vital Signs: Vital Signs Temp Temp Pulse Pulse Resp BP BP 10/25/20 10:35 98.5 F 77 16 151/59 H 10/25/20 10:20 98.0 F 76 16 148/57 H 10/25/20 10:09 98.1 F 79 16 149/72 H 10/25/20 08:23 145/49 H 05/30/21 08:21 77 145/49 H 10/25/20 08:18 97.7 F 77 18 145/49 H 10/25/20 03:15 98.4 F 74 18 136/55 L 10/25/20 00:00 98.0 F 84 16 136/64 Pulse Ox 10/25/20 10:35 94 L 10/25/20 10:20 94 L 10/25/20 10:09 92 L 10/25/20 08:23 10/25/20 08:21 10/25/20 08:18 96 10/25/20 03:15 96 10/25/20 00:00 96 - Problem List Review Problem List Initiated/Reviewed/Updated: Yes - My Orders Last 24 Hours: My Active Orders 10/24/20 10:32 Patient Status [ADT] Routine 10/24/20 21:00 Docusate Sodium/Sennosides [Senna Plus] 1 tab PO BID 10/25/20 07:43 Transfuse Red Blood Cells [COMM] Urgent 10/25/20 12:00 Potassium Chloride [Klor-Con M20] 40 meq PO ONETIME ONE 10/25/20 17:00 Potassium Chloride [Klor-Con M20] 40 meq PO ONETIME ONE 10/26/20 05:00 BASIC METABOLIC PANEL,BMP [CHEM] Timed 10/26/20 05:11 HGB [HEMOGLOBIN] [HEME] AM - Plan Plan:: ASSESSMENT AND PLAN LEFT HIP FRACTURE-status post surgical repair. Persistent edema left leg -Furosemide 20 mg IV today, reassess in a.m. -Saline lock IV -Pain and nausea medication as needed -Postoperative care per Dr. Gupta HYPOTENSION-resolved ANEMIA-secondary to blood loss associated with hip fracture and surgery. Hemoglobin has now dropped close to 7 -Transfuse 1 unit of red blood cells today -Follow-up hemoglobin level in the a.m. ALCOHOL USE DISORDER-no evidence of significant alcohol withdrawal -CIWAA Protocol HYPOTHYROIDISM -continue outpatient medical therapy -Synthyroid 88 mcg daily CHRONIC DIARRHEA -continue outpatient medical therapy -Sulfasalazine 1000 mg bid HYPOKALEMIA-potassium level low today -Oral potassium replacement -Recheck potassium level in a.m. MAINTENANCE ISSUES -DVT prophylaxis; as above -GI prophylaxis -not indicated -García catheter; will be placed because of severe pain with movement -Nutrition; regular diet, n.p.o. after midnight -Nicotine dependence; not required - quit smoking 22 years ago. -consult to PT -consult to OT CODE STATUS-FULL CODE ADMISSION STATUS-patient will be admitted to inpatient status, expect at least a 2 night hospital stay for evaluation and management of problems as outlined jignesh david. At the time of this admission I do not reasonably expected evaluation and management of this problem will require more than a 96 hour hospital stay. DISPOSITION-anticipate discharge to half-way PRIMARY CARE PROVIDER-Dr. Kin Campos, [place], [place]. SURGERY SERVICE- Dr. Gupta, Orthopedic Surgeon HOSPITALIST - Dr. Dumont
[2020-10-25] MEDS ORDERED: Furosemide 20 MG/2 ML VIAL ONE (13:32)
[2020-10-25] MEDS: Citalopram 10 MG Tab PO SCH (20:25)
[2020-10-25] MEDS: Melatonin 3 MG Tab PO SCH (20:28)
[2020-10-26] MEDS: Acetaminophen 325 MG Tab PO PRN ×3 (01:48→19:55)
[2020-10-26] MEDS: sulfaSALAzine 500 MG Tab PO SCH ×2 (08:14→20:02)
[2020-10-26] MEDS: Multivitamins with Iron/Calcium/Folic Acid/Minerals Tab PO SCH (08:14)
[2020-10-26] MEDS: Docusate Sodium 100 MG Cap PO SCH ×2 (08:14→20:03)
[2020-10-26] MEDS: Lisinopril 20 MG Tab PO SCH ×2 (08:14→20:02)
[2020-10-26] MEDS: Hydroxychloroquine 200 MG Tab PO SCH ×2 (08:14→20:03)
[2020-10-26] MEDS: Carvedilol 12.5 MG Tab PO SCH ×2 (08:15→20:01)
[2020-10-26] MEDS: atorvaSTATin 20 MG Tab PO SCH (08:15)
[2020-10-26] MEDS: Levothyroxine 88 MCG Tab PO SCH (08:15)
[2020-10-26] MEDS: Enoxaparin 30 MG/0.3 ML Syringe SUBCUT SCH (08:16)
[2020-10-26] MEDS: Potassium Chloride 20 MEQ Tab.ER PO SCH ×2 (11:08→20:02)
--- NOTE | 2020-10-26 11:59 | PCM.PN ---
- General Info Date of Service: 10/26/20 Subjective Update: No acute events overnight. Pain has been adequately controlled. She is able to ambulate short distances. no complaints of shortness of breath or nausea. No fevers. Hemoglobin up to 9.3 today. Vital signs have been stable. Appetite has been good. Potassium borderline low. Functional Status: Reports: Pain Controlled, Tolerating Diet - Review of Systems General: Reports: Weakness Musculoskeletal: Reports: Leg Pain (hip) - Patient Data Vitals - Most Recent: Last Vital Signs Temp 36.6 C 10/26/20 10:14 Pulse 62 10/26/20 10:14 Resp 16 10/26/20 10:14 BP 156/57 H 10/26/20 10:14 Pulse Ox 96 10/26/20 10:14 Weight - Most Recent: 80.7 kg I&O - Last 24 Hours: Intake & Output 10/25/20 10/26/20 10/26/20 22:59 06:59 14:59 Intake Total 1280 350 240 Output Total 400 Balance 880 350 240 Lab Results Last 24 Hours: Laboratory Results - last 24 hr 10/25/20 10/26/20 10/26/20 Range/Units 05:44 04:15 04:15 Hgb 9.3 L D (12.0-15.0) g/dL Sodium 134 L (140-148) mmol/L Potassium 3.5 L (3.6-5.2) mmol/L Chloride 97 L (100-108) mmol/L Carbon Dioxide 29 (21-32) mmol/L Anion Gap 11.5 (5.0-14.0) mmol/L BUN 9 (7-18) mg/dL Creatinine 0.6 (0.6-1.0) mg/dL Est Cr Clr Drug Dosing 63.92 mL/min Estimated GFR (MDRD) > 60 (>60) Glucose 93 (74-106) mg/dL Calcium 7.6 L (8.5-10.1) mg/dL Crossmatch See Detail Med Orders - Current: Current Medications Acetaminophen (Acetaminophen 325 Mg Tab) 650 mg PO Q4H PRN PRN Reason: Pain (Mild 1-3)/fever Last Admin: 10/26/20 01:48 Dose: 650 mg Documented by: Albuterol (Albuterol 0.083% 2.5 Mg/3 Ml Neb Soln) 2.5 mg NEB Q4H PRN PRN Reason: Shortness Of Breath/wheezing Last Admin: 10/21/20 21:02 Dose: 2.5 mg Documented by: Atorvastatin Calcium (Atorvastatin 20 Mg Tab) 20 mg PO DAILY [facility] Last Admin: 10/26/20 08:15 Dose: 20 mg Documented by: Carvedilol (Carvedilol 12.5 Mg Tab) 25 mg PO BID [facility] Last Admin: 10/26/20 08:15 Dose: 25 mg Documented by: Citalopram Hydrobromide (Citalopram 10 Mg Tab) 10 mg PO BEDTIME [facility] Last Admin: 10/25/20 20:25 Dose: 10 mg Documented by: Docusate Sodium (Docusate Sodium 100 Mg Cap) 100 mg PO BID [facility] Last Admin: 10/26/20 08:14 Dose: 100 mg Documented by: Enoxaparin Sodium (Enoxaparin 30 Mg/0.3 Ml Syringe) 30 mg SUBCUT Q24H [facility] Last Admin: 10/26/20 08:16 Dose: 30 mg Documented by: Hydroxychloroquine Sulfate (Hydroxychloroquine 200 Mg Tab) 200 mg PO BID [facility] Last Admin: 10/26/20 08:14 Dose: 200 mg Documented by: Levothyroxine Sodium (Levothyroxine 88 Mcg Tab) 88 mcg PO DAILY@0730 [facility] Last Admin: 10/26/20 08:15 Dose: 88 mcg Documented by: Lisinopril (Lisinopril 20 Mg Tab) 20 mg PO BID [facility] Last Admin: 10/26/20 08:14 Dose: 20 mg Documented by: Melatonin (Melatonin 3 Mg Tab) 9 mg PO BEDTIME [facility] Last Admin: 10/25/20 20:28 Dose: 9 mg Documented by: Morphine Sulfate (Morphine 2 Mg/Ml Syringe) 2 mg IVPUSH Q2H PRN PRN Reason: Pain (severe 7-10) Last Admin: 10/21/20 12:46 Dose: 1 mg Documented by: Multivitamins/Minerals (Multivitamins With Iron/Calcium/Folic Acid/Minerals Tab) 1 tab PO DAILY [facility] Last Admin: 10/26/20 08:14 Dose: 1 tab Documented by: Ondansetron HCl (Ondansetron 4 Mg Tab.Dis) 4 mg PO Q6H PRN PRN Reason: Nausea able to take PO Oxycodone HCl (Oxycodone 5 Mg Tab) 5 - 10 mg PO Q4H PRN PRN Reason: PAIN Last Admin: 10/24/20 09:23 Dose: 5 mg Documented by: Potassium Chloride (Potassium Chloride 20 Meq Tab.Er) 40 meq PO BID [facility] Last Admin: 10/26/20 11:08 Dose: 40 meq Documented by: Senna/Docusate Sodium (Docusate Sodium/Sennosides 50-8.6 Mg Tab) 1 tab PO BID [facility] Last Admin: 10/26/20 08:16 Dose: Not Given Documented by: Sulfasalazine (Sulfasalazine 500 Mg Tab) 1,000 mg PO BID [facility] Last Admin: 10/26/20 08:14 Dose: 1,000 mg Documented by: Discontinued Medications Amlodipine Besylate (Amlodipine 5 Mg Tab) 5 mg PO DAILY [facility] Last Admin: 10/21/20 10:04 Dose: Not Given Documented by: Cefazolin Sodium (Cefazolin 1 Gm Vial) Confirm Administered Dose 1 gm .ROUTE .STK-MED ONE Stop: 10/20/20 21:35 Last Admin: 10/20/20 21:50 Dose: Not Given Documented by: Chlorthalidone (Chlorthalidone 25 Mg Tab) 25 mg PO DAILY [facility] Last Admin: 10/21/20 10:04 Dose: Not Given Documented by: Citalopram Hydrobromide (Citalopram 10 Mg Tab) 10 mg PO DAILY [facility] Docusate Sodium (Docusate Sodium 100 Mg Cap) 100 mg PO BID PRN PRN Reason: Constipation Last Admin: 10/19/20 21:25 Dose: 100 mg Documented by: Doxazosin Mesylate (Doxazosin 4 Mg Tab) 2 mg PO BID [facility] Last Admin: 10/21/20 10:03 Dose: Not Given Documented by: Ephedrine Sulfate (Ephedrine 50 Mg/Ml Sdv) Confirm Administered Dose 50 mg .ROUTE .STK-MED ONE Stop: 10/20/20 16:29 Fentanyl (Fentanyl 100 Mcg/2 Ml Sdv) Confirm Administered Dose 100 mcg .ROUTE .STK-MED ONE Stop: 10/20/20 10:20 Furosemide (Furosemide 20 Mg/2 Ml Vial) 20 mg IVPUSH NOW ONE Stop: 10/24/20 11:01 Last Admin: 10/24/20 11:44 Dose: 20 mg Documented by: Furosemide (Furosemide 20 Mg/2 Ml Vial) 20 mg IVPUSH NOW ONE Stop: 10/25/20 08:01 Last Admin: 10/25/20 13:35 Dose: 20 mg Documented by: Furosemide (Furosemide 20 Mg/2 Ml Vial) Confirm Administered Dose 20 mg .ROUTE .STK-MED ONE Stop: 10/25/20 13:33 Last Admin: 10/25/20 14:30 Dose: Not Given Documented by: Hydromorphone HCl (Hydromorphone 1 Mg/Ml Syringe) 1 mg IVPUSH ONETIME ONE Stop: 10/19/20 16:58 Last Admin: 10/19/20 17:01 Dose: 1 mg Documented by: Hydromorphone HCl (Hydromorphone 0.5 Mg/0.5 Ml Syringe) 0.5 mg IVPUSH ONETIME ONE Stop: 10/19/20 17:21 Last Admin: 10/19/20 20:59 Dose: Not Given Documented by: Hydromorphone HCl (Hydromorphone 1 Mg/Ml Syringe) 1 mg IVPUSH ONETIME ONE Stop: 10/19/20 18:37 Last Admin: 10/19/20 18:39 Dose: 1 mg Documented by: Sodium Chloride (Normal Saline) 1,000 mls @ 125 mls/hr IV ASDIRECTED [facility] Last Admin: 10/22/20 04:47 Dose: 125 mls/hr Documented by: Cefazolin Sodium/Dextrose 1 gm (/ Premix) 50 mls @ 100 mls/hr IV ONETIME ONE Stop: 10/20/20 16:29 Last Admin: 10/20/20 15:51 Dose: 100 mls/hr Documented by: Potassium Chloride 20 meq/Lidocaine HCl 2 ml/ Sodium Chloride 112 mls @ 56 mls/hr IV Q2H [facility] Stop: 10/20/20 13:59 Last Admin: 10/20/20 12:15 Dose: 56 mls/hr Documented by: Lactated Ringer's (Ringers, Lactated) Confirm Administered Dose 1,000 mls @ as directed .ROUTE .STK-MED ONE Stop: 10/20/20 17:16 Cefazolin Sodium/Dextrose 1 gm (/ Premix) 50 mls @ 100 mls/hr IV Q8HR [facility] Stop: 10/21/20 14:29 Cefazolin Sodium 1 gm/ Sodium (Chloride) 50 mls @ 100 mls/hr IV Q8H [facility] Stop: 10/21/20 14:29 Last Admin: 10/21/20 13:40 Dose: 100 mls/hr Documented by: Potassium Chloride 20 meq/Lidocaine HCl 2 ml/ Sodium Chloride 112 mls @ 50 mls/hr IV Q2H [facility] Stop: 10/21/20 10:44 Last Admin: 10/21/20 09:21 Dose: 50 mls/hr Documented by: Calcium Gluconate 2 gm/ Sodium (Chloride) 120 mls @ 100 mls/hr IV ONETIME ONE Stop: 10/21/20 10:11 Last Admin: 10/21/20 09:21 Dose: 100 mls/hr Documented by: Sodium Chloride (Normal Saline) 500 mls @ 500 mls/hr IV ONETIME ONE Stop: 10/21/20 10:29 Last Admin: 10/21/20 09:27 Dose: 500 mls/hr Documented by: Sodium Chloride (Normal Saline) 1,000 mls @ 500 mls/hr IV .BOLUS ONE Stop: 10/21/20 13:43 Last Admin: 10/21/20 11:56 Dose: 500 mls/hr Documented by: Norepinephrine Bitartrate 4 mg (/ Dextrose/Water) 250 mls @ 7.5 mls/hr IV TITRATE [facility]; Protocol Last Titration: 10/23/20 05:08 Dose: 0 mcg/min, 0 mls/hr Documented by: Sodium Chloride (Normal Saline) 500 mls @ 500 mls/hr IV .BOLUS ONE Stop: 10/21/20 17:09 Last Admin: 10/21/20 16:17 Dose: 500 mls/hr Documented by: Sodium Chloride (Normal Saline) 1,000 mls @ 50 mls/hr IV ASDIRECTED [facility] Last Admin: 10/23/20 01:55 Dose: 50 mls/hr Documented by: Ketamine HCl (Ketamine 500 Mg/5 Ml Mdv) 15 mg IV ONETIME ONE Stop: 10/19/20 17:22 Last Admin: 10/19/20 17:25 Dose: 15 mg Documented by: Lisinopril (Lisinopril 10 Mg Tab) Confirm Administered Dose 20 mg .ROUTE .STK- MED ONE Stop: 10/19/20 21:14 Last Admin: 10/19/20 21:27 Dose: Not Given Documented by: Midazolam HCl (Midazolam 1 Mg/Ml 2 Ml Sdv) Confirm Administered Dose 2 mg .ROUTE .STK-MED ONE Stop: 10/20/20 10:20 Ondansetron HCl (Ondansetron 4 Mg/2 Ml Sdv) 4 mg IVPUSH ONETIME ONE Stop: 10/19/20 16:58 Last Admin: 10/19/20 17:00 Dose: 4 mg Documented by: Oxycodone HCl (Oxycodone 5 Mg Tab) 10 mg PO Q4H PRN PRN Reason: Pain (moderate 4-6) Last Admin: 10/23/20 15:06 Dose: 5 mg Documented by: Pantoprazole Sodium (Pantoprazole 40 Mg Vial) 40 mg IV BEDTIME [facility] Last Admin: 10/23/20 21:00 Dose: 40 mg Documented by: Pantoprazole Sodium (Pantoprazole 40 Mg Tab.Cr) 40 mg PO BEDTIME [facility] Last Admin: 10/24/20 21:13 Dose: 40 mg Documented by: Phenylephrine HCl (Phenylephrine 1% 10 Mg/Ml Sdv) Confirm Administered Dose 10 mg .ROUTE .STK-MED ONE Stop: 10/20/20 16:30 Potassium Chloride (Potassium Chloride 20 Meq Tab.Er) 40 meq PO ONETIME ONE Stop: 10/21/20 08:01 Last Admin: 10/21/20 08:29 Dose: 40 meq Documented by: Potassium Chloride (Potassium Chloride 20 Meq Tab.Er) 40 meq PO ONETIME ONE Stop: 10/21/20 13:01 Last Admin: 10/21/20 13:39 Dose: 40 meq Documented by: Potassium Chloride (Potassium Chloride 20 Meq Tab.Er) 40 meq PO ONETIME ONE Stop: 10/25/20 08:01 Last Admin: 10/25/20 08:21 Dose: 40 meq Documented by: Potassium Chloride (Potassium Chloride 20 Meq Tab.Er) 40 meq PO ONETIME ONE Stop: 10/25/20 12:01 Last Admin: 10/25/20 12:30 Dose: 40 meq Documented by: Potassium Chloride (Potassium Chloride 20 Meq Tab.Er) 40 meq PO ONETIME ONE Stop: 10/25/20 17:01 Last Admin: 10/25/20 16:29 Dose: 40 meq Documented by: Povidone Iodine (Povidone-Iodine 10% Soln 118.25 Ml Bottle) Confirm Administered Dose 1 ml .ROUTE .STK-MED ONE Stop: 10/20/20 08:34 Last Admin: 10/20/20 17:14 Dose: 40 ml Documented by: Propofol (Propofol 200 Mg/20 Ml Sdv) Confirm Administered Dose 200 mg .ROUTE .STK-MED ONE Stop: 10/20/20 10:20 Senna/Docusate Sodium (Docusate Sodium/Sennosides 50-8.6 Mg Tab) 2 tab PO BID [facility] Last Admin: 10/24/20 09:21 Dose: Not Given Documented by: Sugammadex Sodium (Sugammadex Sodium 200 Mg/2 Ml Vial) Confirm Administered Dose 200 mg .ROUTE .STK-MED ONE Stop: 10/20/20 10:22 - Exam Quality Assessment: Supplemental Oxygen Urinary Catheter Total Time: 2Days 14Hours General: Alert, Oriented, Cooperative, No Acute Distress Lungs: Normal Respiratory Effort Cardiovascular: Regular Rate, Regular Rhythm GI/Abdominal Exam: Soft, No Distention Psy/Mental Status: Alert, Normal Affect - Patient Data Lab Results Last 24 hrs: Laboratory Results - last 24 hr 10/25/20 10/26/20 10/26/20 Range/Units 05:44 04:15 04:15 Hgb 9.3 L D (12.0-15.0) g/dL Sodium 134 L (140-148) mmol/L Potassium 3.5 L (3.6-5.2) mmol/L Chloride 97 L (100-108) mmol/L Carbon Dioxide 29 (21-32) mmol/L Anion Gap 11.5 (5.0-14.0) mmol/L BUN 9 (7-18) mg/dL Creatinine 0.6 (0.6-1.0) mg/dL Est Cr Clr Drug Dosing 63.92 mL/min Estimated GFR (MDRD) > 60 (>60) Glucose 93 (74-106) mg/dL Calcium 7.6 L (8.5-10.1) mg/dL Crossmatch See Detail Result Diagrams: 10/26/20 04:15 10/26/20 04:15 Sepsis Event Note - Evaluation Sepsis Screening Result: No Definite Risk - Focused Exam Vital Signs: Vital Signs Temp Pulse Pulse Resp BP BP Pulse Ox 10/26/20 10:14 36.6 C 62 16 156/57 H 96 10/26/20 08:15 70 140/94 H 10/26/20 08:14 140/94 H 10/26/20 07:55 36.3 C 66 16 140/94 H 97 10/26/20 03:15 36.7 C 69 18 140/46 L 95 - Problem List Review Problem List Initiated/Reviewed/Updated: Yes - My Orders Last 24 Hours: My Active Orders 10/26/20 10:00 Potassium Chloride [Klor-Con M20] 40 meq PO BID 10/27/20 05:00 BASIC METABOLIC PANEL,BMP [CHEM] Timed HGB [HEMOGLOBIN] [HEME] Timed - Plan Plan:: ASSESSMENT AND PLAN LEFT HIP FRACTURE-status post surgical repair on 10/20. Persistent edema left leg that is improving. -Saline lock IV -Pain and nausea medication as needed -Postoperative care per Dr. Gupta -PT and OT consultation HYPOTENSION-resolved ANEMIA-secondary to blood loss associated with hip fracture and surgery. Hemoglobin improved with transfusion yesterday. -Follow-up hemoglobin level in the a.m. ALCOHOL USE DISORDER-no evidence of significant alcohol withdrawal HYPOTHYROIDISM -Synthyroid 88 mcg daily CHRONIC DIARRHEA-stable. -Sulfasalazine 1000 mg bid HYPOKALEMIA-potassium level low-normal today. -Oral potassium replacement -Recheck potassium level in a.m. MAINTENANCE ISSUES -DVT prophylaxis; as above -GI prophylaxis -not indicated -García catheter; will be placed because of severe pain with movement -Nutrition; regular diet, n.p.o. after midnight DISPOSITION-anticipate discharge to half-way for subacute rehab PRIMARY CARE PROVIDER-Dr. Kin Campos, [place], [place]. Homer Perez MD
[2020-10-26] MEDS: Citalopram 10 MG Tab PO SCH (20:01)
[2020-10-26] MEDS: Melatonin 3 MG Tab PO SCH (20:02)
[2020-10-27] MEDS: Levothyroxine 88 MCG Tab PO SCH (07:31)
[2020-10-27 08:10] VITALS: BP 159/61; PULSE 68
[2020-10-27] MEDS: Docusate Sodium 100 MG Cap PO SCH (09:06)
[2020-10-27] MEDS: Carvedilol 12.5 MG Tab PO SCH (09:06)
[2020-10-27] MEDS: atorvaSTATin 20 MG Tab PO SCH (09:07)
[2020-10-27] MEDS: Potassium Chloride 20 MEQ Tab.ER PO SCH (09:08)
[2020-10-27] MEDS: Lisinopril 20 MG Tab PO SCH (09:08)
[2020-10-27] MEDS: Hydroxychloroquine 200 MG Tab PO SCH (09:08)
[2020-10-27] MEDS: Enoxaparin 30 MG/0.3 ML Syringe SUBCUT SCH (09:08)
[2020-10-27] MEDS: Multivitamins with Iron/Calcium/Folic Acid/Minerals Tab PO SCH (09:09)
[2020-10-27] MEDS: sulfaSALAzine 500 MG Tab PO SCH (09:09)
[2020-10-27] MEDS: Acetaminophen 325 MG Tab PO PRN (09:14)
--- NOTE | 2020-10-27 09:25 | PCM.DCSUM1 ---
Discharge Summary - Hospital Course Brief History: 80-year-old female with history of essential hypertension and chronic diarrhea who presented with left hip pain after falling at home. She was admitted for management of a left femoral neck fracture that required surgical management. Diagnosis: Stroke: No - Discharge Data Discharge Date: 10/27/20 Discharge Disposition: DC/Tfer to SNF 03 Condition: Good - Referral to Home Health Primary Care Physician: PCP None - Discharge Diagnosis/Problem(s) (1) Fracture of neck of femur, hip SNOMED Code(s): 4521438 ICD Code: S72.009A - FRACTURE OF UNSP PART OF NECK OF UNSP FEMUR, INIT Status: Acute Problem Details: displaced (2) Status post open reduction and internal fixation (ORIF) of fracture SNOMED Code(s): 274068492 ICD Code: Z98.890 - OTHER SPECIFIED POSTPROCEDURAL STATES; Z87.81 - PERSONAL HISTORY OF (HEALED) TRAUMATIC FRACTURE Status: Acute (3) Postoperative anemia SNOMED Code(s): 543930735, 311700659 ICD Code: D64.9 - ANEMIA, UNSPECIFIED Status: Acute (4) Alcohol use disorder, severe, dependence SNOMED Code(s): 865461209 ICD Code: F10.20 - ALCOHOL DEPENDENCE, UNCOMPLICATED Status: Chronic (5) Hypothyroidism SNOMED Code(s): 55900141 ICD Code: E03.9 - HYPOTHYROIDISM, UNSPECIFIED Status: Chronic Qualifiers: Hypothyroidism type: acquired Qualified Code(s): E03.9 - Hypothyroidism, unspecified (6) Hypertension SNOMED Code(s): 86621716 ICD Code: I10 - ESSENTIAL (PRIMARY) HYPERTENSION Status: Chronic Qualifiers: Hypertension type: essential hypertension Qualified Code(s): I10 - Essential (primary) hypertension - Patient Summary/Data Operative Procedure(s) Performed: Left hip hemiarthroplasty performed by Dr Tr Gupta Consults: Consultations 10/19/20 19:38 OT Evaluation and Treatment [CONS] Routine Please Evaluate and Treat. OT Reason for Consult: ADL's Special Instructions: left hip surgery scheduled 10/20/2020 This query below is only for informational purposes and is not editable. Admission Diagnosis/Problem: Fracture of neck of femur, hip PT Evaluation and Treatment [CONS] Routine Please Evaluate and Treat. PT Reason for Consult: Post op Ortho Surgery Special Instructions: left hip surgery schedule 10/20/2020 This query below is only for informational purposes and is not editable. Admission Diagnosis/Problem: Fracture of neck of femur, hip Hospital Course: Margie presented to the emergency room with left hip pain after falling at home. Work-up in the emergency room did suggest a fracture of the left femoral neck. She was admitted to the hospital for management of a left hip fracture with the plan for surgical repair the next morning. The patient did undergo successful left hip hemiarthroplasty on 10/20. Her postoperative course was complicated by hypotension. Her blood pressure medications were held but despite this she continued to have hypotension that did not respond to fluid resuscitation so she needed a norepinephrine infusion transiently. Her hemoglobin did trend down postoperatively and she did receive a unit of blood with ongoing hypotension and a hemoglobin of 7.5. After that her blood pressure did stabilize and she started to show some improvement. Unfortunately her hemoglobin did trend down again over the next couple of days and she received a second unit of blood via transfusion for hemoglobin of 7. Since then things have been quite stable. Her pain is well controlled and she is starting to make some progress with physical therapy. Vital signs have been stable and we have restarted most of her blood pressure medications though we have held the chlorthalidone and plan to discontinue it. There is no evidence for infection she has done well the last few days. She would benefit from subacute rehab to continue to improve strength and endurance following her hip surgery and the complicated postoperative course. Plan is for her to go [facility] [place] [facility] rehab with both physical and Occupational Therapy. She is stable and safe for discharge at this time. The plan is for her to have enoxaparin for 21 more days for DVT prophylaxis. - Patient Instructions Diet: Regular Diet as Tolerated Activity: As Tolerated (WBAT) Showering/Bathing: May Shower Wound/Incision Care: Keep Operative Site/Wound Site Clean and Dry Notify Provider of: Fever, Increased Pain Other/Special Instructions: 1. You were in the hospital for management of a left hip fracture that required operative management. Your condition has been improving following surgical intervention. Your postoperative period was complicated by low blood pressures but these have resolved. He also had some blood loss related to the surgery but your bleeding has stopped and your hemoglobin is at a safe level at this time. I recommend subacute rehab at a [facility] facility. Pain control will be with acetaminophen for mild pain and oxycodone for more intense pain. You should follow up with Dr Tr Gupta in about 1 week for postoperative follow-up. 2. Referral to physical and occupational therapy for strengthening following a left hip fracture. 3. Code status - FULL CODE - Discharge Plan *PRESCRIPTION DRUG MONITORING PROGRAM REVIEWED*: Not Applicable *COPY OF PRESCRIPTION DRUG MONITORING REPORT IN PATIENT DARIUS: Not Applicable Prescriptions/Med Rec: Enoxaparin [Lovenox] 30 mg SUBCUT DAILY #21 syringe oxyCODONE 5 mg PO Q4H PRN #45 tab PRN Reason: Pain Docusate Sodium/Sennosides [Senna Plus] 1 tab PO BID PRN #30 tablet PRN Reason: Constipation Acetaminophen [Tylenol] 650 mg PO Q4H PRN #100 tablet PRN Reason: Pain (Mild 1-3)/fever Home Medications: Home Meds Doxazosin Mesylate 2 mg PO BID 01/19/16 [History] Hydroxychloroquine [Plaquenil] 200 mg PO BID 01/19/16 [History] Levothyroxine Sodium 88 mcg PO DAILY 01/19/16 [History] Multivitamin with Minerals [Multiple Vitamin] 1 tab PO DAILY 01/19/16 [History] Simvastatin 40 mg PO BEDTIME 01/19/16 [History] sulfaSALAzine [Sulfasalazine] 1,000 mg PO BID 01/19/16 [History] Aspirin 81 mg PO DAILY 10/19/20 [History] Citalopram [Citalopram HBr] 10 mg PO BEDTIME 10/19/20 [History] amLODIPine [Norvasc] 5 mg PO DAILY 10/19/20 [History] carvediloL [Carvedilol] 25 mg PO BID 10/19/20 [History] lisinopriL [Lisinopril] 20 mg PO BID 10/19/20 [History] Acetaminophen [Tylenol] 650 mg PO Q4H PRN #100 tablet 10/26/20 [Rx] Docusate Sodium/Sennosides [Senna Plus] 1 tab PO BID PRN #30 tablet 10/26/20 [Rx] Enoxaparin [Lovenox] 30 mg SUBCUT DAILY #21 syringe 10/26/20 [Rx] oxyCODONE 5 mg PO Q4H PRN #45 tab 10/26/20 [Rx] Oxygen Therapy Mode: Room Air Patient Handouts: Hip Fracture Treated With ORIF Referrals: Tr Gupta MD [Physician] - 10/29/20 2:00 pm ([place] at 1:45 At [facility]- ER desk. Imaging will be done at 2:00pm) - Discharge Summary/Plan Comment DC Time >30 min.: Yes (45-[facility] [place] [facility] discharge ) - Patient Data Vitals - Most Recent: Last Vital Signs Temp 36.4 C 10/27/20 07:00 Pulse 68 10/27/20 09:06 Resp 18 10/27/20 07:00 BP 159/61 H 10/27/20 09:08 Pulse Ox 99 10/27/20 07:00 Weight - Most Recent: 80.7 kg I&O - Last 24 hours: Intake & Output 10/26/20 10/27/20 10/27/20 22:59 06:59 14:59 Intake Total 240 260 Balance 240 260 Lab Results - Last 24 hrs: Laboratory Results - last 24 hr 10/27/20 10/27/20 Range/Units 04:15 04:15 Hgb 10.2 L (12.0-15.0) g/dL Sodium 134 L (140-148) mmol/L Potassium 4.1 (3.6-5.2) mmol/L Chloride 98 L (100-108) mmol/L Carbon Dioxide 28 (21-32) mmol/L Anion Gap 12.1 (5.0-14.0) mmol/L BUN 9 (7-18) mg/dL Creatinine 0.6 (0.6-1.0) mg/dL Est Cr Clr Drug Dosing 63.92 mL/min Estimated GFR (MDRD) > 60 (>60) Glucose 96 (74-106) mg/dL Calcium 8.1 L (8.5-10.1) mg/dL Med Orders - Current: Current Medications Acetaminophen (Acetaminophen 325 Mg Tab) 650 mg PO Q4H PRN PRN Reason: Pain (Mild 1-3)/fever Last Admin: 10/27/20 09:14 Dose: 650 mg Documented by: Albuterol (Albuterol 0.083% 2.5 Mg/3 Ml Neb Soln) 2.5 mg NEB Q4H PRN PRN Reason: Shortness Of Breath/wheezing Last Admin: 10/21/20 21:02 Dose: 2.5 mg Documented by: Atorvastatin Calcium (Atorvastatin 20 Mg Tab) 20 mg PO DAILY [facility] Last Admin: 10/27/20 09:07 Dose: 20 mg Documented by: Carvedilol (Carvedilol 12.5 Mg Tab) 25 mg PO BID [facility] Last Admin: 10/27/20 09:06 Dose: 25 mg Documented by: Citalopram Hydrobromide (Citalopram 10 Mg Tab) 10 mg PO BEDTIME [facility] Last Admin: 10/26/20 20:01 Dose: 10 mg Documented by: Docusate Sodium (Docusate Sodium 100 Mg Cap) 100 mg PO BID [facility] Last Admin: 10/27/20 09:06 Dose: Not Given Documented by: Enoxaparin Sodium (Enoxaparin 30 Mg/0.3 Ml Syringe) 30 mg SUBCUT Q24H [facility] Last Admin: 10/27/20 09:08 Dose: 30 mg Documented by: Hydroxychloroquine Sulfate (Hydroxychloroquine 200 Mg Tab) 200 mg PO BID [facility] Last Admin: 10/27/20 09:08 Dose: 200 mg Documented by: Levothyroxine Sodium (Levothyroxine 88 Mcg Tab) 88 mcg PO DAILY@0730 [facility] Last Admin: 10/27/20 07:31 Dose: 88 mcg Documented by: Lisinopril (Lisinopril 20 Mg Tab) 20 mg PO BID [facility] Last Admin: 10/27/20 09:08 Dose: 20 mg Documented by: Melatonin (Melatonin 3 Mg Tab) 9 mg PO BEDTIME [facility] Last Admin: 10/26/20 20:02 Dose: 9 mg Documented by: Morphine Sulfate (Morphine 2 Mg/Ml Syringe) 2 mg IVPUSH Q2H PRN PRN Reason: Pain (severe 7-10) Last Admin: 10/21/20 12:46 Dose: 1 mg Documented by: Multivitamins/Minerals (Multivitamins With Iron/Calcium/Folic Acid/Minerals Tab) 1 tab PO DAILY [facility] Last Admin: 10/27/20 09:09 Dose: 1 tab Documented by: Ondansetron HCl (Ondansetron 4 Mg Tab.Dis) 4 mg PO Q6H PRN PRN Reason: Nausea able to take PO Oxycodone HCl (Oxycodone 5 Mg Tab) 5 - 10 mg PO Q4H PRN PRN Reason: PAIN Last Admin: 10/24/20 09:23 Dose: 5 mg Documented by: Potassium Chloride (Potassium Chloride 20 Meq Tab.Er) 40 meq PO BID [facility] Last Admin: 10/27/20 09:08 Dose: 40 meq Documented by: Senna/Docusate Sodium (Docusate Sodium/Sennosides 50-8.6 Mg Tab) 1 tab PO BID [facility] Last Admin: 10/27/20 09:09 Dose: Not Given Documented by: Sulfasalazine (Sulfasalazine 500 Mg Tab) 1,000 mg PO BID [facility] Last Admin: 10/27/20 09:09 Dose: 1,000 mg Documented by: Discontinued Medications Amlodipine Besylate (Amlodipine 5 Mg Tab) 5 mg PO DAILY [facility] Last Admin: 10/21/20 10:04 Dose: Not Given Documented by: Cefazolin Sodium (Cefazolin 1 Gm Vial) Confirm Administered Dose 1 gm .ROUTE .STK-MED ONE Stop: 10/20/20 21:35 Last Admin: 10/20/20 21:50 Dose: Not Given Documented by: Chlorthalidone (Chlorthalidone 25 Mg Tab) 25 mg PO DAILY [facility] Last Admin: 10/21/20 10:04 Dose: Not Given Documented by: Citalopram Hydrobromide (Citalopram 10 Mg Tab) 10 mg PO DAILY [facility] Docusate Sodium (Docusate Sodium 100 Mg Cap) 100 mg PO BID PRN PRN Reason: Constipation Last Admin: 10/19/20 21:25 Dose: 100 mg Documented by: Doxazosin Mesylate (Doxazosin 4 Mg Tab) 2 mg PO BID [facility] Last Admin: 10/21/20 10:03 Dose: Not Given Documented by: Ephedrine Sulfate (Ephedrine 50 Mg/Ml Sdv) Confirm Administered Dose 50 mg .ROUTE .STK-MED ONE Stop: 10/20/20 16:29 Fentanyl (Fentanyl 100 Mcg/2 Ml Sdv) Confirm Administered Dose 100 mcg .ROUTE .STK-MED ONE Stop: 10/20/20 10:20 Furosemide (Furosemide 20 Mg/2 Ml Vial) 20 mg IVPUSH NOW ONE Stop: 10/24/20 11:01 Last Admin: 10/24/20 11:44 Dose: 20 mg Documented by: Furosemide (Furosemide 20 Mg/2 Ml Vial) 20 mg IVPUSH NOW ONE Stop: 10/25/20 08:01 Last Admin: 10/25/20 13:35 Dose: 20 mg Documented by: Furosemide (Furosemide 20 Mg/2 Ml Vial) Confirm Administered Dose 20 mg .ROUTE .STK-MED ONE Stop: 10/25/20 13:33 Last Admin: 10/25/20 14:30 Dose: Not Given Documented by: Hydromorphone HCl (Hydromorphone 1 Mg/Ml Syringe) 1 mg IVPUSH ONETIME ONE Stop: 10/19/20 16:58 Last Admin: 10/19/20 17:01 Dose: 1 mg Documented by: Hydromorphone HCl (Hydromorphone 0.5 Mg/0.5 Ml Syringe) 0.5 mg IVPUSH ONETIME ONE Stop: 10/19/20 17:21 Last Admin: 10/19/20 20:59 Dose: Not Given Documented by: Hydromorphone HCl (Hydromorphone 1 Mg/Ml Syringe) 1 mg IVPUSH ONETIME ONE Stop: 10/19/20 18:37 Last Admin: 10/19/20 18:39 Dose: 1 mg Documented by: Sodium Chloride (Normal Saline) 1,000 mls @ 125 mls/hr IV ASDIRECTED [facility] Last Admin: 10/22/20 04:47 Dose: 125 mls/hr Documented by: Cefazolin Sodium/Dextrose 1 gm (/ Premix) 50 mls @ 100 mls/hr IV ONETIME ONE Stop: 10/20/20 16:29 Last Admin: 10/20/20 15:51 Dose: 100 mls/hr Documented by: Potassium Chloride 20 meq/Lidocaine HCl 2 ml/ Sodium Chloride 112 mls @ 56 mls/hr IV Q2H [facility] Stop: 10/20/20 13:59 Last Admin: 10/20/20 12:15 Dose: 56 mls/hr Documented by: Lactated Ringer's (Ringers, Lactated) Confirm Administered Dose 1,000 mls @ as directed .ROUTE .STK-MED ONE Stop: 10/20/20 17:16 Cefazolin Sodium/Dextrose 1 gm (/ Premix) 50 mls @ 100 mls/hr IV Q8HR [facility] Stop: 10/21/20 14:29 Cefazolin Sodium 1 gm/ Sodium (Chloride) 50 mls @ 100 mls/hr IV Q8H [facility] Stop: 10/21/20 14:29 Last Admin: 10/21/20 13:40 Dose: 100 mls/hr Documented by: Potassium Chloride 20 meq/Lidocaine HCl 2 ml/ Sodium Chloride 112 mls @ 50 mls/hr IV Q2H [facility] Stop: 10/21/20 10:44 Last Admin: 10/21/20 09:21 Dose: 50 mls/hr Documented by: Calcium Gluconate 2 gm/ Sodium (Chloride) 120 mls @ 100 mls/hr IV ONETIME ONE Stop: 10/21/20 10:11 Last Admin: 10/21/20 09:21 Dose: 100 mls/hr Documented by: Sodium Chloride (Normal Saline) 500 mls @ 500 mls/hr IV ONETIME ONE Stop: 10/21/20 10:29 Last Admin: 10/21/20 09:27 Dose: 500 mls/hr Documented by: Sodium Chloride (Normal Saline) 1,000 mls @ 500 mls/hr IV .BOLUS ONE Stop: 10/21/20 13:43 Last Admin: 10/21/20 11:56 Dose: 500 mls/hr Documented by: Norepinephrine Bitartrate 4 mg (/ Dextrose/Water) 250 mls @ 7.5 mls/hr IV TITRATE [facility]; Protocol Last Titration: 10/23/20 05:08 Dose: 0 mcg/min, 0 mls/hr Documented by: Sodium Chloride (Normal Saline) 500 mls @ 500 mls/hr IV .BOLUS ONE Stop: 10/21/20 17:09 Last Admin: 10/21/20 16:17 Dose: 500 mls/hr Documented by: Sodium Chloride (Normal Saline) 1,000 mls @ 50 mls/hr IV ASDIRECTED [facility] Last Admin: 10/23/20 01:55 Dose: 50 mls/hr Documented by: Ketamine HCl (Ketamine 500 Mg/5 Ml Mdv) 15 mg IV ONETIME ONE Stop: 10/19/20 17:22 Last Admin: 10/19/20 17:25 Dose: 15 mg Documented by: Lisinopril (Lisinopril 10 Mg Tab) Confirm Administered Dose 20 mg .ROUTE .STK- MED ONE Stop: 10/19/20 21:14 Last Admin: 10/19/20 21:27 Dose: Not Given Documented by: Midazolam HCl (Midazolam 1 Mg/Ml 2 Ml Sdv) Confirm Administered Dose 2 mg .ROUTE .STK-MED ONE Stop: 10/20/20 10:20 Ondansetron HCl (Ondansetron 4 Mg/2 Ml Sdv) 4 mg IVPUSH ONETIME ONE Stop: 10/19/20 16:58 Last Admin: 10/19/20 17:00 Dose: 4 mg Documented by: Oxycodone HCl (Oxycodone 5 Mg Tab) 10 mg PO Q4H PRN PRN Reason: Pain (moderate 4-6) Last Admin: 10/23/20 15:06 Dose: 5 mg Documented by: Pantoprazole Sodium (Pantoprazole 40 Mg Vial) 40 mg IV BEDTIME [facility] Last Admin: 10/23/20 21:00 Dose: 40 mg Documented by: Pantoprazole Sodium (Pantoprazole 40 Mg Tab.Cr) 40 mg PO BEDTIME [facility] Last Admin: 10/24/20 21:13 Dose: 40 mg Documented by: Phenylephrine HCl (Phenylephrine 1% 10 Mg/Ml Sdv) Confirm Administered Dose 10 mg .ROUTE .STK-MED ONE Stop: 10/20/20 16:30 Potassium Chloride (Potassium Chloride 20 Meq Tab.Er) 40 meq PO ONETIME ONE Stop: 10/21/20 08:01 Last Admin: 10/21/20 08:29 Dose: 40 meq Documented by: Potassium Chloride (Potassium Chloride 20 Meq Tab.Er) 40 meq PO ONETIME ONE Stop: 10/21/20 13:01 Last Admin: 10/21/20 13:39 Dose: 40 meq Documented by: Potassium Chloride (Potassium Chloride 20 Meq Tab.Er) 40 meq PO ONETIME ONE Stop: 10/25/20 08:01 Last Admin: 10/25/20 08:21 Dose: 40 meq Documented by: Potassium Chloride (Potassium Chloride 20 Meq Tab.Er) 40 meq PO ONETIME ONE Stop: 10/25/20 12:01 Last Admin: 10/25/20 12:30 Dose: 40 meq Documented by: Potassium Chloride (Potassium Chloride 20 Meq Tab.Er) 40 meq PO ONETIME ONE Stop: 10/25/20 17:01 Last Admin: 10/25/20 16:29 Dose: 40 meq Documented by: Povidone Iodine (Povidone-Iodine 10% Soln 118.25 Ml Bottle) Confirm Administered Dose 1 ml .ROUTE .STK-MED ONE Stop: 10/20/20 08:34 Last Admin: 10/20/20 17:14 Dose: 40 ml Documented by: Propofol (Propofol 200 Mg/20 Ml Sdv) Confirm Administered Dose 200 mg .ROUTE .STK-MED ONE Stop: 10/20/20 10:20 Senna/Docusate Sodium (Docusate Sodium/Sennosides 50-8.6 Mg Tab) 2 tab PO BID [facility] Last Admin: 10/24/20 09:21 Dose: Not Given Documented by: Sugammadex Sodium (Sugammadex Sodium 200 Mg/2 Ml Vial) Confirm Administered Dose 200 mg .ROUTE .STK-MED ONE Stop: 10/20/20 10:22
--- NOTE | 2020-11-04 22:11 | OR ---
DATE OF PROCEDURE: 10/19/2020 SURGEON: Tr Gupta MD PREOPERATIVE DIAGNOSIS: Displaced left femoral neck fracture. POSTOPERATIVE DIAGNOSIS: Displaced left femoral neck fracture. PROCEDURE: Hemiarthroplasty left hip using [place] M/L taper stem size 12.5 standard, 48 mm outer diameter bipolar cup with a -3.5 neck length, 28 mm head. ANESTHESIA: Spinal with sedation. NUCLEAR PHARMACIST: DHRUV Arauz. INDICATIONS: Margie is a 80-year-old female presented to the emergency room after a fall from a ladder at home. Evaluation reveals a displaced fracture of left femoral neck. She is cleared from medical standpoint. She was taken to the operating room for hemiarthroplasty. Risks, benefits, and potential complications of the procedure were discussed. Services of physician diver assistant for surgical 1st assist were used for retraction, exposure, and manipulation and reduction of the hip during surgery. DESCRIPTION OF PROCEDURE: After adequate anesthesia was obtained, the patient placed in a lateral decubitus position and secured with the hip positioner. The left hip and leg were prepped and draped in a sterile fashion. A longitudinal incision was made over the greater trochanter, carried down through the subcutaneous tissues and hemostasis was obtained with electrocautery. Tensor fascia was divided in line with its fibers and a Charnley retractor was placed. Short external rotators divided off the posterior trochanter and the capsule was entered. Fracture hematoma was encountered. A femoral neck fracture was presented. Oscillating saw was used to recut the femoral neck. The femoral head was then removed and measured. Soft tissue was cleared from the central portion of the acetabulum and a trial 48 mm head was placed with good fit. Attention was returned to the femur where a box osteotome was used to remove the lateral femoral neck cortex. A hand awl was placed down the canal and the lateralizing reamer was utilized. The canal was then sequentially broached to a size 12.5. Trial reduction was done with a -3.5 neck length providing restorationism of limb length and excellent stability. The trials were removed. M/L taper stem was press-fit into position. Trial reduction was done once again with a -3.5 mm neck length chosen. The bipolar head and cup were assembled on the back table, tapped into position onto the Welsh taper, and the hip was reduced. This was taken through range of motion again and found to be quite stable and appear to have normal limb lengths. The hip was irrigated with a pulse lavage, followed by a dilute Betadine solution which was left in place for approximately 2.5 minutes and then irrigated once again with pulse lavage. The posterior capsule was closed with a #2 Ethibond. Tensor fascia was closed in a running locking fashion. The skin was closed with 2-0 Vicryl and a running 3-0 Monocryl. Steri-Strips were applied. Sterile dressing was then placed. The patient tolerated the procedure very well. There were no complications. She was taken from the operating room in stable condition. Tr Gupta MD /[id number]
== END 2020-10-27 11:25 | DRG 522 ==
LOC: JP.ED 16:25 → JP.ICU 19:18 → JP.MS 10-25 06:05
PROVIDERS: ADMIT Internal Medicine; ATTEND Internal Medicine
PROC: 30233N1 Transfusion of Nonautologous Red Blood Cells into Peripheral Vein, Percutaneous Approach (ICD-10-PCS; principal; 2020-10-19)
PROC: 0SRS0JA Replacement of Left Hip Joint, Femoral Surface with Synthetic Substitute, Uncemented, Open Approach (ICD-10-PCS; 2020-10-19)
DX: S72.002A Fracture of unspecified part of neck of left femur, initial encounter for closed fracture (principal); W11.XXXA Fall on and from ladder, initial encounter; I10 Essential (primary) hypertension; K52.9 Noninfective gastroenteritis and colitis, unspecified; D64.9 Anemia, unspecified; F10.20 Alcohol dependence, uncomplicated; M11.9 Crystal arthropathy, unspecified; E03.9 Hypothyroidism, unspecified; Z96.653 Presence of artificial knee joint, bilateral; I95.9 Hypotension, unspecified; H54.7 Unspecified visual loss; E78.00 Pure hypercholesterolemia, unspecified; M19.90 Unspecified osteoarthritis, unspecified site; Z96.651 Presence of right artificial knee joint; Z96.641 Presence of right artificial hip joint; Z20.822 Contact with and (suspected) exposure to COVID-19; Y92.009 Unspecified place in unspecified non-institutional (private) residence as the place of occurrence of the external cause; Z98.890 Other specified postprocedural states; Z79.890 Hormone replacement therapy; Z79.82 Long term (current) use of aspirin; Z79.899 Other long term (current) drug therapy; Z88.5 Allergy status to narcotic agent; Z91.040 Latex allergy status; Z87.440 Personal history of urinary (tract) infections; Z90.89 Acquired absence of other organs; Z98.51 Tubal ligation status
CPT/HCPCS: 0241U; 36415; 36430; 51702; 71045; 72170; 73502; 80048; 81001; 82330; 84132; 85018; 85025; 85027; 86850; 86900; 86901; 86920; 86922; 94640; 96374; 96375; 96376; 97110; 97116; 97162; 97166; 97530; 97535; 99285; A9270-GY; C1776; C9113; J0610; J0690; J1170; J1650; J1940; J2001; J2250; J2270; J2370; J2405; J2704; J3010; J3480; J3490; J7030; J7040; J7060; J7120; P9016